=== PATIENT | female | born 1930 | race Asian ===

== ENCOUNTER 2018-07-22 22:26 | Inpatient (IN) | payer OTHER ==
--- NOTE | 2018-07-22 22:33 | PDOC ---
History of Present Illness - General History Source: Patient Exam Limitations: No Limitations - History of Present Illness Initial Comments: 07/22/18 23:08 Patient is an 87 year old female with a significant past medical history of asthma, anxiety, who presents to the ED with complaints of bright red blood that occured 30 mins prior to arrival. Patient reports being at home when she suddenly felt a fullness in her abdomen that she states felt like i had too much dairy, stating when she used the toilet she saw a large amount of bright red blood within the toilet. She reports experiencing a secondary episode shortly after, prompting her to come into the ED for further evaluation. Patient reports experiencing slight sob, and abdominal discomfort that she attributes to her anxiety over the situation. She reports bringing a sample of her bloody stool to the ED for evaluation. Denies chest pain, nausea, vomiting. Denies fevers, chills. Denies contact with sick individuals out of state travelling. Denies dizziness, lightheadedness. Denies dysuria, hematuria. Denies any other symptoms. Allergies: Dairy Social history: No smoking. No alcohol. No illicit drugs. Surgical history: Partial hysterectomy, Desmoid removal (Abdominal wall resection ~50 years ago). Bladder polyp removal. Colonoscopy (most recently several years ago). PMD: Dr. Hutton GI: Dr. Manuel Cardenas <Taiwo Canada - Last Filed: 07/22/18 23:13> <Ana Roblero - Last Filed: 07/23/18 03:22> - General Chief Complaint: Diarrhea Stated Complaint: BLOODY STOOL Time Seen by Provider: 07/22/18 22:32 Past History <Taiwo Canada - Last Filed: 07/22/18 23:13> <Ana Roblero - Last Filed: 07/23/18 03:22> - Past Medical History Allergies/Adverse Reactions: Allergies Allergy/AdvReac Type Severity Reaction Status Date / Time lactase [From Dairy Aid] Allergy Verified 07/22/18 22:28 No Known Drug Allergies Allergy Verified 07/22/18 22:28 Home Medications: Ambulatory Orders Albuterol Sulfate Inhaler - [Ventolin Hfa Inhaler -] 1 - 2 inh PO Q4H PRN Budesonide/Formeterol Fumarate [SYMBICORT 80/4.5mcg -] 1 inh PO BID PRN Rosuvastatin Calcium [Crestor] 0 mg PO DAILY 07/22/18 Review of Systems - Review of Systems Able to Perform ROS?: Yes Comments:: 07/22/18 23:08 GENERAL/CONSTITUTIONAL: No fever or chills. No weakness. HEAD, EYES, EARS, NOSE AND THROAT: No change in vision. No ear pain or discharge. No sore throat. CARDIOVASCULAR: No chest pain or shortness of breath. RESPIRATORY: No cough, wheezing, or hemoptysis. GASTROINTESTINAL: +Bloody diarrhea. No nausea, vomiting, or constipation. GENITOURINARY: No dysuria, frequency, or change in urination. MUSCULOSKELETAL: No joint or muscle swelling or pain. No neck or back pain. SKIN: No rash NEUROLOGIC: No headache, vertigo, loss of consciousness, or change in strength/ sensation. ENDOCRINE: No increased thirst. No abnormal weight change. HEMATOLOGIC/LYMPHATIC: No anemia, easy bleeding, or history of blood clots. ALLERGIC/IMMUNOLOGIC: No hives or skin allergy. <Taiwo Canada - Last Filed: 07/22/18 23:13> *Physical Exam - Physical Exam Comments: 07/22/18 23:09 GENERAL: Awake, alert, and fully oriented, in no acute distress HEAD: No signs of trauma EYES: PERRLA, EOMI, sclera anicteric, conjunctiva clear ENT: Auricles normal inspection, hearing grossly normal, nares patent, oropharynx clear without exudates. Moist mucosa NECK: Normal ROM, supple, no lymphadenopathy, JVD, or masses LUNGS: +Distant breath sounds. Breath sounds equal, clear to auscultation bilaterally. No wheezes, and no crackles HEART: Regular rate and rhythm, normal S1 and S2, no murmurs, rubs or gallops ABDOMEN: Soft, nontender, normoactive bowel sounds. No guarding, no rebound. No masses EXTREMITIES: Normal range of motion, no edema. No clubbing or cyanosis. No cords, erythema, or tenderness NEUROLOGICAL: Cranial nerves II through XII grossly intact. Normal speech, normal gait SKIN: Warm, Dry, normal turgor, no rashes or lesions noted. <Taiwo Canada - Last Filed: 12/19/18 23:13> ED Treatment Course - LABORATORY CBC & Chemistry Diagram: 07/22/18 23:00 07/22/18 23:00 <Taiwo Canada - Last Filed: 07/22/18 23:13> - LABORATORY CBC & Chemistry Diagram: 07/22/18 23:00 07/22/18 23:00 <Ana Roblero Ihsan - Last Filed: 07/23/18 03:22> Progress Note - Progress Note Progress Note: Documentation has been prepared under my direction and personally reviewed by me in its entirety. I attest that this documented accurately reflects all work, treatment, procedures and medical decision making performed by me. <OsbaldoAna Champagne - Last Filed: 07/23/18 03:22> Medical Decision Making - Medical Decision Making 07/23/18 00:09 This 87-year-old woman with a history of hypertension/COPD/desmoid tumor/ bladder polyps presents with a history of painless hematochezia. Patient states that she had mild "fullness" sensation in her abdomen approximately a half hour prior to presentation. She then had a large, liquid bright red bowel movement ("filled the bowl"). She subsequently had a smaller amount of bright red bowel movement. She felt slight nausea but no significant abdominal pain. Because she has a history of anxiety, she states that she felt "panicked" but no other associated symptoms of lightheadedness/shortness of breath other than her usual COPD related dyspnea/chest pain. Exam as noted; vital signs on presentation showed hypertension, likely secondary to anxiety. Subsequent measurements were much closer to normal. Since presenting here, the patient has had 2 smaller episodes of hematochezia. She has intermittent, very mild abdominal cramping but is otherwise comfortable without associated symptoms. Mild tachycardia persists Laboratory values notable for hemoglobin/hematocrit of 15.9/46.1. INR 0.93 Alkaline phosphatase is 106; troponin is not elevated. 12-lead echocardiogram is performed and interpreted by me: Sinus tachycardia at 108 bpm is present. Otherwise, intervals/axis and wave forms are essentially normal. No evidence that acute as T or T-wave abnormalities; no evidence of acute cardiac arrhythmia. Because this elderly patient has persistent hematochezia, urgent colonoscopy is warranted. Dr. Yonny Becker's patients are [facility]. Case discussed with AKOSUA Alexander The pt will be admitted to Dr Hall's service, inpatient 07/23/18 00:[address] Cardenas. The patient should be on clear liquid diet with bowel prep started tonight to facilitate colonoscopy tomorrow <Ana Roblero - Last Filed: 07/23/18 03:22> *DC/Admit/Observation/Transfer - Attestations Scribe Attestion: 07/22/18 23:09 Documentation prepared by Taiwo Canada, acting as medical records analyst for Ana Roblero MD. <Taiwo Canada - Last Filed: 07/22/18 23:13> - Discharge Dispostion Decision to Admit order: Yes <Ana Roblero - Last Filed: 07/23/18 03:22> Diagnosis at time of Disposition: Lower GI bleed - Discharge Dispostion Condition at time of disposition: Stable
[2018-07-22 23:14] LABS: BASO % 0.6 % (0-2.0); HEMATOCRIT 46.1 % (32.4-45.2); HEMOGLOBIN 14.9 GM/dl (10.7-15.3); LYMPH % 24.3 % (8-40); MCH 31.5 pg (25.7-33.7); MCHC 32.3 g/dl (32.0-36.0); MEAN CELL VOLUME 97.5 fl (80-96); MONO % 7.5 % (3.8-10.2); NEUT % 66.6 % (42.8-82.8); PLATELET COUNT 282 K/MM3 (134-434); RBC 4.72 M/mm3 (3.60-5.2); RDW 12.6 % (11.6-15.6); WHITE BLOOD COUNT 7.5 K/mm3 (4.0-10.8)
[2018-07-22 23:25] LABS: INR 0.93 (0.82-1.09); PROTHROMBIN TIME (PATIENT) 10.4 SEC (10.2-13.0)
[2018-07-22 23:41] LABS: ALBUMIN 4.7 g/dl (3.5-5.0); ALK PHOS 106 U/L (32-92); ANION GAP 8 MMOL/L (8-16); BILIRUBIN,TOTAL 0.7 mg/dl (0.2-1.0); BLOOD UREA NITROGEN 18 mg/dl (7-18); CALCIUM 9.8 mg/dl (8.4-10.2); CHLORIDE 99 mmol/L (98-107); CO2 28 mmol/L (22-28); CREATININE 0.8 mg/dl (0.6-1.3); GLUCOSE,RANDOM 124 mg/dl (74-106); POTASSIUM 4.4 mmol/L (3.5-5.1); SGOT/AST 31 U/L (10-42); SGPT/ALT 22 U/L (10-40); SODIUM 135 mmol/L (136-145); TOT PROT 7.5 g/dl (6.4-8.3)
[2018-07-23 01:26] LABS: URINE APPEARANCE CLEAR; URINE BILIRUBIN NEGATIVE (<2.0 mg/dL); URINE COLOR STRAW; URINE GLUCOSE (UA) NEGATIVE (NEGATIVE); URINE KETONE NEGATIVE (NEGATIVE); URINE LEUK ESTERASE NEGATIVE (NEGATIVE); URINE NITRITE NEGATIVE (NEGATIVE); URINE PROTEIN NEGATIVE (NEGATIVE); URINE UROBILINOGEN NEGATIVE mg/dL (0.2-1.0)
[2018-07-23 01:59] VITALS: BMI 17.6
[2018-07-23] MEDS ORDERED: HEMOQUE TEST 1 EACH EACH ONE ×2 (02:03→02:23)
[2018-07-23] MEDS ORDERED: PEG3350/SOD SULF,BICARB,CL/KCL 4,000 ML SOLN.RECON PO ONE (02:34)
[2018-07-23 07:51] LABS: HEMATOCRIT 42.9 % (32.4-45.2); HEMOGLOBIN 14.1 GM/dl (10.7-15.3); MCH 31.8 pg (25.7-33.7); MCHC 32.9 g/dl (32.0-36.0); MEAN CELL VOLUME 96.5 fl (80-96); MEAN PLT VOLUME 8.5 fl (7.5-11.1); PLATELET COUNT 244 K/MM3 (134-434); RBC 4.45 M/mm3 (3.60-5.2); RDW 12.3 % (11.6-15.6); WHITE BLOOD COUNT 6.1 K/mm3 (4.0-10.8)
[2018-07-23 07:53] LABS: ANION GAP 8 MMOL/L (8-16); BLOOD UREA NITROGEN 14 mg/dl (7-18); CALCIUM 9.5 mg/dl (8.4-10.2); CHLORIDE 99 mmol/L (98-107); CO2 28 mmol/L (22-28); CREATININE 0.8 mg/dl (0.6-1.3); GLUCOSE,RANDOM 108 mg/dl (74-106); POTASSIUM 3.7 mmol/L (3.5-5.1); SODIUM 135 mmol/L (136-145)
[2018-07-23] MEDS ORDERED: SODIUM CHLORIDE 1,000 ML IV SCH (08:30)
[2018-07-23] MEDS ORDERED: PANTOPRAZOLE 40 MG TABLET (FP) PO SCH (10:00)
[2018-07-23] MEDS ORDERED: SODIUM CHLORIDE 1,000 ML IV STA (10:36)
[2018-07-23] MEDS: BUDESONIDE/FORMETEROL FUMARATE 80/4.5 mcg INHALER IH SCH ×2 (10:49→23:49)
[2018-07-23] MEDS ORDERED: PANTOPRAZOLE SODIUM 80 MG in SODIUM CHLORIDE 100 ML IVPB SCH (11:00)
[2018-07-23 11:09] LABS: HEMATOCRIT 38.5 % (32.4-45.2); MCH 32.7 pg (25.7-33.7); MCHC 33.9 g/dl (32.0-36.0); MEAN CELL VOLUME 96.5 fl (80-96); MEAN PLT VOLUME 7.7 fl (7.5-11.1); PLATELET COUNT 231 K/MM3 (134-434); RBC 3.98 M/mm3 (3.60-5.2); RDW 12.3 % (11.6-15.6); WHITE BLOOD COUNT 5.5 K/mm3 (4.0-10.8)
--- NOTE | 2018-07-23 11:54 | HP ---
CHIEF COMPLAINT: Lower GI bleed PCP: Dr. Villanueva HISTORY OF PRESENT ILLNESS: 87 year-old female with a PMH signifiant for COPD and anxiety. Presented to the ED last evening with complaint of bleeding per rectum that occured 30 mins prior to arrival. Patient reported being at home when she suddenly felt a fullness in her abdomen. She used the toilet and saw a large amount of red blood. Within minutes she had a second episode which prompted her to come to the ED. Overnight on floor had two more episodes. Since 10am, three episodes. Patient was given Go-Litely prep overnight. Last colonoscopy was 10 years ago, polyps removed. Denies chest pain, nausea, vomiting. Denies fevers, chills. Denies dizziness, lightheadedness, fatigue. Surgical history: Partial hysterectomy, Desmoid removal (Abdominal wall resection ~50 years ago). Bladder polyp removal. Colonoscopy (most recently several years ago). 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 Smoking: no Alcohol: no Drugs: no Family History: father colon cancer age 67 Allergies lactase [From Dairy Aid] Allergy (Verified 07/22/18 22:28) No Known Drug Allergies Allergy (Verified 07/22/18 22:28) HOME MEDICATIONS: Home Medications Medication Instructions Recorded Albuterol Sulfate Inhaler - 1 - 2 inh PO Q4H PRN 07/22/18 [Ventolin Hfa Inhaler -] Budesonide/Formeterol Fumarate 1 inh PO BID PRN 07/22/18 [SYMBICORT 80/4.5mcg -] Rosuvastatin Calcium [Crestor] 0 mg PO DAILY 07/22/18 REVIEW OF SYSTEMS CONSTITUTIONAL: Absent: fever, chills, diaphoresis, generalized weakness, malaise, loss of appetite, weight change HEENT: Absent: rhinorrhea, nasal congestion, throat pain, throat swelling, difficulty swallowing, mouth swelling, ear pain, eye pain, visual changes CARDIOVASCULAR: Absent: chest pain, syncope, palpitations, irregular heart rate, lightheadedness , peripheral edema RESPIRATORY: Absent: cough, shortness of breath, dyspnea with exertion, orthopnea, wheezing, stridor, hemoptysis GASTROINTESTINAL: Absent: abdominal pain, abdominal distension, nausea, vomiting, diarrhea, constipation, melena, hematochezia GENITOURINARY: +blood per rectum Absent: dysuria, frequency, urgency, hesitancy, hematuria, flank pain, genital pain MUSCULOSKELETAL: Absent: myalgia, arthralgia, joint swelling, back pain, neck pain SKIN: Absent: rash, itching, pallor HEMATOLOGIC/IMMUNOLOGIC: Absent: easy bleeding, easy bruising, lymphadenopathy, frequent infections ENDOCRINE: Absent: unexplained weight gain, unexplained weight loss, heat intolerance, cold intolerance NEUROLOGIC: Absent: headache, focal weakness or paresthesias, dizziness, unsteady gait, seizure, mental status changes, bladder or bowel incontinence PSYCHIATRIC: Absent: anxiety, depression, suicidal or homicidal ideation, hallucinations. PHYSICAL EXAMINATION Vital Signs - 24 hr 07/22/18 07/22/18 07/23/18 23:34 23:45 01:01 Temperature 97.4 F L 98.1 F Pulse Rate 127 H 113 H Pulse Rate [ 111 H Left] Respiratory 20 18 20 Rate Blood Pressure 199/125 H 168/100 Blood Pressure 147/99 [Right Arm] O2 Sat by Pulse 95 98 98 Oximetry (%) GENERAL: Awake, alert, and fully oriented, in no acute distress. LUNGS: Breath sounds equal, clear to auscultation bilaterally. No wheezes, and no crackles. No accessory muscle use. HEART: Regular rate and rhythm, S1 and S2 without murmur, rub or gallop. ABDOMEN: Soft, nontender, not distended, +bowel sounds MUSCULOSKELETAL: Normal range of motion at all joints. No bony deformities or tenderness. No CVA tenderness. UPPER EXTREMITIES: 2+ pulses, warm, well-perfused. No cyanosis. No clubbing. No peripheral edema. LOWER EXTREMITIES: 2+ pulses, warm, well-perfused. No calf tenderness. No peripheral edema. NEUROLOGICAL: Cranial nerves II-XII intact. Normal speech. Laboratory Results - last 24 hr 07/22/18 07/22/18 07/22/18 23:00 23:00 23:00 WBC 7.5 RBC 4.72 Hgb 14.9 Hct 46.1 H MCV 97.5 H MCH 31.5 MCHC 32.3 RDW 12.6 Plt Count 282 MPV 8.0 Absolute Neuts (auto) 5.0 Neutrophils % 66.6 Lymphocytes % 24.3 Monocytes % 7.5 Eosinophils % 1.0 Basophils % 0.6 PT with INR 10.4 INR 0.93 L Sodium 135 L Potassium 4.4 Chloride 99 Carbon Dioxide 28 Anion Gap 8 BUN 18 Creatinine 0.8 Creat Clearance w eGFR > 60 Random Glucose 124 H Calcium 9.8 Total Bilirubin 0.7 AST 31 ALT 22 Alkaline Phosphatase 106 H Creatine Kinase 213 H Creatine Kinase Index 1.5 CK-MB (CK-2) 3.4 Troponin I Total Protein 7.5 Albumin 4.7 Urine Color Urine Appearance Urine pH Ur Specific [place] Urine Protein Urine Glucose (UA) Urine Ketones Urine Blood Urine Nitrite Urine Bilirubin Urine Urobilinogen Ur Leukocyte Esterase Blood Type Antibody Screen Crossmatch 07/22/18 07/22/18 07/23/18 23:00 23:05 00:05 WBC RBC Hgb Hct MCV MCH MCHC RDW Plt Count MPV Absolute Neuts (auto) Neutrophils % Lymphocytes % Monocytes % Eosinophils % Basophils % PT with INR INR Sodium Potassium Chloride Carbon Dioxide Anion Gap BUN Creatinine Creat Clearance w eGFR Random Glucose Calcium Total Bilirubin AST ALT Alkaline Phosphatase Creatine Kinase Creatine Kinase Index CK-MB (CK-2) Troponin I < 0.03 Total Protein Albumin Urine Color Straw Urine Appearance Clear Urine pH 7.0 Ur Specific [place] 1.005 L Urine Protein Negative Urine Glucose (UA) Negative Urine Ketones Negative Urine Blood Negative Urine Nitrite Negative Urine Bilirubin Negative Urine Urobilinogen Negative Ur Leukocyte Esterase Negative Blood Type B POSITIVE Antibody Screen Negative Crossmatch See Detail 07/23/18 07/23/18 07:00 07:00 WBC 6.1 RBC 4.45 Hgb 14.1 Hct 42.9 MCV 96.5 H MCH 31.8 MCHC 32.9 RDW 12.3 Plt Count 244 MPV 8.5 Absolute Neuts (auto) Neutrophils % Lymphocytes % Monocytes % Eosinophils % Basophils % PT with INR INR Sodium 135 L Potassium 3.7 Chloride 99 Carbon Dioxide 28 Anion Gap 8 BUN 14 Creatinine 0.8 Creat Clearance w eGFR > 60 Random Glucose 108 H Calcium 9.5 Total Bilirubin AST ALT Alkaline Phosphatase Creatine Kinase Creatine Kinase Index CK-MB (CK-2) Troponin I Total Protein Albumin Urine Color Urine Appearance Urine pH Ur Specific [place] Urine Protein Urine Glucose (UA) Urine Ketones Urine Blood Urine Nitrite Urine Bilirubin Urine Urobilinogen Ur Leukocyte Esterase Blood Type Antibody Screen Crossmatch ASSESSMENT/PLAN 87 year-old female with a PMH significant for COPD and anxiety, admitted for lower GI bleed. Lower GI bleeding --tachycardic, BP stable --IV fluids --2 peripheral line access --2U PRBCs ordered --protonix drip --cbc q4h --NPO Dispo: transfer to ICU. Visit type - Emergency Visit Emergency Visit: Yes ED Registration Date: 07/23/18 Care time: The patient presented to the Emergency Department on the above date and was hospitalized for further evaluation of their emergent condition. - New Patient This patient is new to me today: Yes Date on this admission: 07/23/18 - Critical Care Critical Care patient: Yes Total Critical Care Time (in minutes): 60 Critical Care Statement: The care of this patient involved high complexity decision making to prevent further life threatening deterioration of the patient 's condition and/or to evaluate & treat vital organ system(s) failure or risk of failure.
--- NOTE | 2018-07-23 12:05 | EKG ---
Test Reason : Blood Pressure : / mmHG Vent. Rate : 108 BPM Atrial Rate : 108 BPM P-R Int : 140 ms QRS Dur : 078 ms QT Int : 338 ms P-R-T Axes : 084 070 058 degrees QTc Int : 452 ms SINUS TACHYCARDIA POSSIBLE LEFT ATRIAL ENLARGEMENT BORDERLINE ECG WHEN COMPARED WITH ECG OF 06-JUL-2001 17:50, NO SIGNIFICANT CHANGE WAS FOUND Confirmed by SALENA CORMIER MD ([id number]) on 07/23/2018 12:05:24 PM Referred By: MD CACERES Confirmed By:SALENA CORMIER MD
--- NOTE | 2018-07-23 15:03 | CON.GI ---
Consult Consult Specialty:: GI - History of Present Illness History of Present Illness: 87 y/o F was asked to be seen because of rectal bleeding. He was transfereed from [place]. Yesterday she started taking 3/4 of the golytely but still has passing blood mixed with stool. Patient transferred for further evaluation management. At this time she denies nausea,no vomiting, melena, chest pain and LOC. - Past Medical History ...: No - Alcohol/Substance Use Hx Alcohol Use: No - Smoking History Smoking history: Former smoker Have you smoked in the past 12 months: No If you are a former smoker, when did you quit?: 50 Home Medications - Allergies Allergies/Adverse Reactions: Allergies Allergy/AdvReac Type Severity Reaction Status Date / Time lactase [From Dairy Aid] Allergy Verified 07/22/18 22:28 No Known Drug Allergies Allergy Verified 07/22/18 22:28 - Home Medications Home Medications: Ambulatory Orders Albuterol Sulfate Inhaler - [Ventolin Hfa Inhaler -] 1 - 2 inh PO Q4H PRN Budesonide/Formeterol Fumarate [SYMBICORT 80/4.5mcg -] 1 inh PO BID PRN Rosuvastatin Calcium [Crestor] 0 mg PO DAILY 07/22/18 Review of Systems - Review of Systems Constitutional: denies: No Symptoms, Chills, Diaphoresis, Fever, Lethargy, Loss of Appetite, Malaise, Night Sweats, Unintentional Wgt. Loss, Weakness, Other Eyes: denies: No Symptoms, Blind Spots, Blurred Vision, Double Vision, Eye Pain , Floaters, Photophobia, Recent Change in Vision, Other HENT: denies: No Symptoms, Difficult Swallowing, Ear Discharge, Ear Pain, Epistaxis, Gingival Bleeding, Hearing Loss, Mouth Swelling, Nasal Congestion, Ocular Prosthesis, Throat Pain, Toothache, Ringing in Ears, Other Neck: denies: No Symptoms, Decreased ROM, Lumps, Pain on Movement, Stiffness, Swollen Glands, Tenderness, Other Cardiovascular: denies: No Symptoms, Chest Pain, Edema, Palpitations, Shortness of Breath, Other Respiratory: denies: No Symptoms, Cough, Exercise Intolerance, Hemoptysis, Orthopnea, PND, Snoring, SOB, SOB on Exertion, Wheezing, Other Gastrointestinal: reports: Rectal Bleeding. denies: No Symptoms, Abdominal Pain , Bloating, Indigestion, Vomiting, Vomiting Blood Physical Exam-GI Vital Signs: Vital Signs Temperature 982 F H 07/23/18 14:00 Pulse Rate 92 H 07/23/18 14:00 Respiratory Rate 18 07/23/18 14:00 Blood Pressure 127/81 07/23/18 14:00 O2 Sat by Pulse Oximetry (%) 96 07/23/18 11:00 Constitutional: Yes: Well Nourished Eyes: Yes: Conjunctiva Clear HENT: Yes: Atraumatic Neck: Yes: Supple Cardiovascular: Yes: Regular Rate and Rhythm Respiratory: Yes: CTA Bilaterally ...Palpate: Yes: Soft. No: Firm/Rigid, Guarding, Hepatomegaly, Mass, Pulsatile Mass, Splenomegaly, Tenderness Labs: CBC, BMP 07/23/18 11:05 07/23/18 07:00 INR, PTT INR 0.93 (0.82-1.09) L 07/22/18 23:00 Hepatic Panel Total Bilirubin 0.7 mg/dl (0.2-1.0) 07/22/18 23:00 AST 31 U/L (10-42) 07/22/18 23:00 ALT 22 U/L (10-40) 07/22/18 23:00 Alkaline Phosphatase 106 U/L (32-92) H 07/22/18 23:00 Albumin 4.7 g/dl (3.5-5.0) 07/22/18 23:00 Home Medications Medication Instructions Recorded Albuterol Sulfate Inhaler - 1 - 2 inh PO Q4H PRN 07/22/18 [Ventolin Hfa Inhaler -] Budesonide/Formeterol Fumarate 1 inh PO BID PRN 07/22/18 [SYMBICORT 80/4.5mcg -] Rosuvastatin Calcium [Crestor] 0 mg PO DAILY 07/22/18 Current Medications Generic Name Dose Route Start Last Admin Trade Name Freq PRN Reason Stop Dose Admin Budesonide/Formoterol Fumarate 1 puff 07/23/18 10:00 07/23/18 10:49 Symbicort 80/4.5mcg - IH 1 puff BID MARISSA Administration Chlorhexidine Gluconate 1 applic 07/23/18 22:00 Hibiclens For Decolonization - TP HS MARISSA Sodium Chloride 1,000 mls @ 125 mls/hr 07/23/18 08:30 07/23/18 08:30 Normal Saline - IV 125 mls/hr ASDIR MARISSA Administration Pantoprazole Sodium 80 mg/ 100 mls @ 10 mls/hr 07/23/18 11:00 07/23/18 11:18 Sodium Chloride IVPB 10 mls/hr Q10H MARISSA Administration 8 MG/HR Mupirocin 1 applic 07/23/18 22:00 Bactroban Ointment (For Decolonization) - NS 07/28/18 21:59 BID MARISSA Rosuvastatin Calcium 5 mg 07/23/18 22:00 Crestor - PO HS MARISSA Problem List - Problems (1) Lower GI bleed Assessment/Plan: r/o diverticular bleeding R>for colonoscopy in am trend CBC okay to discontinue IV Protonix Code(s): K92.2 - GASTROINTESTINAL HEMORRHAGE, UNSPECIFIED
--- NOTE | 2018-07-23 15:24 | CONSULT ---
Consultation: ICU Consult Note CONSULT REQUEST: We have been asked to medically evaluate this patient for suspected lower GI bleed (BRBPR). HISTORY OF PRESENT ILLNESS: The patient is an 87F w/ a history of COPD, HLD, distant bladder ca s/p BCG washout and partial HYS who presents for evaluation of multiple episodes of BRBPR since 199. The patient reports that she was attempting to have a BM when she passed a 'large amount of pure blood'. She is unable to quantify the amount of blood. She states she has had multiple bloody BMs since that time. She endorses generalized weakness/fatigue. She denies ever having had this happen before. States she has had multiple colonoscopies in the past, has had several polyps removed, but to her knowledge they have never been malignant and otherwise have been normal. Denies LITTLE, vision changes, chest pain, SOB, abdominal pain, N/V/C/D, dysuria, hematuria. Denies AC Denies hx of CO or stroke She has also been taking GoLytely throughout the night/day in preparation for a colonoscopy. She stated she consumed approximately 1/2 of the total prep. PSH: Partial HYS, Desmoid removal, malignant bladder polyp removal Allergies: NKDA SH: Distant hx of tobacco use REVIEW OF SYSTEMS: GENERAL/CONSTITUTIONAL: No fever or chills HEAD, EYES, EARS, NOSE AND THROAT: +b/l cataracts. No ear pain or discharge. No sore throat CARDIOVASCULAR: No chest pain or shortness of breath RESPIRATORY: Denies cough, hemoptysis GASTROINTESTINAL: per HPI GENITOURINARY: No dysuria, frequency, or change in urination MUSCULOSKELETAL: No joint or muscle swelling or pain. No neck or back pain SKIN: No rash NEUROLOGIC: No headache, vertigo, loss of consciousness, or change in strength/ sensation ENDOCRINE: No increased thirst. No abnormal weight change HEMATOLOGIC/LYMPHATIC: No anemia, easy bleeding, or history of blood clots ALLERGIC/IMMUNOLOGIC: No hives or skin allergy PHYSICAL EXAMINATION Vital Signs Temperature 98.2 F 07/23/18 16:00 Pulse Rate 92 H 07/23/18 14:00 Respiratory Rate 18 07/23/18 16:00 Blood Pressure 128/82 07/23/18 16:00 O2 Sat by Pulse Oximetry (%) 96 07/23/18 11:00 GENERAL: Awake, alert, and fully oriented, in no acute distress HEAD: No signs of trauma, normocephalic, atraumatic EYES: PERRLA, EOMI, sclera anicteric, conjunctiva clear ENT: Hearing grossly normal, nares patent, oropharynx clear without exudates. Moist mucosa NECK: Normal ROM, supple LUNGS: No distress, speaks full sentences, clear to auscultation bilaterally HEART: Tachycardic rate with regular rhythm, normal S1 and S2, no murmurs appreciated, peripheral pulses normal and equal bilaterally ABDOMEN: Soft, nontender, non-distended, +bowel sounds. No guarding, no rebound RECTAL: Normal tone. No hemorrhoids or fissures. +BRB on glove. Soft stool in rectal vault EXTREMITIES : Normal inspection, Normal range of motion, no edema NEUROLOGICAL: Cranial nerves II through XII grossly intact. Normal speech, no focal sensorimotor deficits SKIN: Small stage II pressure wound on sacrum measuring 0.5cm x 0.3cm. Otherwise warm/dry CBC, BMP 07/23/18 11:05 07/23/18 07:00 Active Medications Generic Name Dose Route Start Last Admin Trade Name Freq PRN Reason Stop Dose Admin Budesonide/Formoterol Fumarate 1 puff 07/23/18 10:00 07/23/18 10:49 Symbicort 80/4.5mcg - IH 1 puff BID MARISSA Administration Chlorhexidine Gluconate 1 applic 07/23/18 22:00 Hibiclens For Decolonization - TP HS MARISSA Sodium Chloride 1,000 mls @ 125 mls/hr 07/23/18 08:30 07/23/18 08:30 Normal Saline - IV 125 mls/hr ASDIR MARISSA Administration Pantoprazole Sodium 80 mg/ 100 mls @ 10 mls/hr 07/23/18 11:00 07/23/18 11:18 Sodium Chloride IVPB 10 mls/hr Q10H MARISSA Administration 8 MG/HR Mupirocin 1 applic 07/23/18 22:00 Bactroban Ointment (For Decolonization) - NS 07/28/18 21:59 BID MARISSA Rosuvastatin Calcium 5 mg 07/23/18 22:00 Crestor - PO HS MARISSA ASSESSMENT/PLAN: The patient is an 87F w/ a history of COPD, distant bladder ca hx, and HLD who presents for evaluation of 1d of multiple episodes of BRBPR and associated generalized weakness. Neuro Denies pain HEENT Cataracts -Vision grossly intact -Surgery scheduled for October CV HLD -Home Rosuvastatin restarted PULM COPD -Will continue home meds GI Bright Red Blood Per Rectum -Hgb 13 -FOBT sent -Pt HD stable at this time -Dr. Yang consulted --Per pt, she consumed approximately 1/2 of GoLytely prep for colonoscopy tomorrow --Protonix gtt D/C'ed Nutrition -CLD Hx of bladder cancer No current complaints UA w/o blood HEME Hgb 14.1 -> 13, will CTM -s/p 1u pRBC -pt w/o dizziness, palpitations, or confusion -no need for further transfusion at this time, will CTM. Serial CBCs ordered. ID Afebrile, no leukocytosis CTM ENDO Denies hx of DM or thyroid pathology MSK Pressure wound on coccyx present on arrival, 0.5cm x 0.3cm -Pressure dressing ordered. To be kept dry. Change Q7day or if soiled -Of note, pt reports that she has had it for some time and 'think[s] of it as normal'. LTD PIVx3 Dispo: We will continue to follow the patient Visit type - Emergency Visit Emergency Visit: Yes ED Registration Date: 07/23/18 Care time: The patient presented to the Emergency Department on the above date and was hospitalized for further evaluation of their emergent condition. - New Patient This patient is new to me today: Yes Date on this admission: 07/23/18 - Critical Care Critical Care patient: Yes Total Critical Care Time (in minutes): 35 Critical Care Statement: The care of this patient involved high complexity decision making to prevent further life threatening deterioration of the patient 's condition and/or to evaluate & treat vital organ system(s) failure or risk of failure.
--- NOTE | 2018-07-23 15:38 | PN ---
Progress Note, Physician Chief Complaint: 87 year old female with pmh of asthma ,bladder cancer anxiety presented from [facility] ED to ICU to lower GI bleed. pt reports 4 episode of bright blood with stool. she does not know the amount and it s not mixed with the stool. pt is using [place] herbal over the counter. but denies using any ASA, ibuprofen Advil or any NSAIDS. pt recieved colon prep partially at [facility] and GI Dr Yang was consulted. denies any fever, chills, nausea, vomiting D/C/denies any chest pain or shortness of breath. no light headedness, no palpitation. PMH: Bladder cancer treated with BCG wash, asthma , cataract PSHx: hysterectomy , colonoscopy with polyp removal Allergies: NKDA Social: smokes socially as teenage, denies drinking, denies any illegal drugs. Vital Signs - 24 hr 07/22/18 07/22/18 07/23/18 23:34 23:45 01:01 Temperature 97.4 F L 98.1 F Pulse Rate 127 H 113 H Pulse Rate [ 111 H Left] Respiratory 20 18 20 Rate Blood Pressure 199/125 H 168/100 Blood Pressure 147/99 [Right Arm] O2 Sat by Pulse 95 98 98 Oximetry (%) 07/23/18 07/23/18 07/23/18 01:34 02:14 05:55 Temperature 97.6 F Pulse Rate 110 H Pulse Rate [ 107 H Left] Respiratory 18 18 18 Rate Blood Pressure 149/92 Blood Pressure 138/101 H [Right Arm] O2 Sat by Pulse 98 98 97 Oximetry (%) 07/23/18 07/23/18 07/23/18 05:58 07:55 08:37 Temperature 97.6 F Pulse Rate 97 H Pulse Rate [ Left] Respiratory 18 18 18 Rate Blood Pressure 122/87 Blood Pressure [Right Arm] O2 Sat by Pulse 97 96 Oximetry (%) 07/23/18 07/23/18 07/23/18 10:44 11:00 12:00 Temperature 98 F 98.7 F Pulse Rate 112 H 103 H Pulse Rate [ Left] Respiratory 18 17 Rate Blood Pressure 159/91 118/76 Blood Pressure [Right Arm] O2 Sat by Pulse 96 Oximetry (%) 07/23/18 07/23/18 13:00 14:00 Temperature 982 F H Pulse Rate 101 H 92 H Pulse Rate [ Left] Respiratory 18 Rate Blood Pressure 134/86 127/81 Blood Pressure [Right Arm] O2 Sat by Pulse Oximetry (%) PE General: laying down in bed in AND , AAOx3 Head : NC/AT HEENT: DAX, EOMI, icteric sclera Heart: tachycardic, normal S1, S2, no MRG lungs: CTA B/L Abdomen: soft, ND, NT, hyperactive bowel sounds. no rebound or guarding neuro: no focal deficit, AAOx3 skin: warm dry CBC, BMP 07/23/18 11:05 07/23/18 07:00 A/P 87 year old female presented with 4 episode of lower GI bleed , S/P one unit of blood in [facility] ED. recieved partial prep will admit to icu for monitoring # GI bleed likely lower * cardiac, NURSE CASE MANAGER monitor * ICU monitor * Vitals Q 2 hr * 2 Large Iv pores, * IV fluids * monitor H/H Q 4 hr , transfuse if below 7 * coagulation studies , PT, PTT, INR * Lfts , bilir, total and direct * GI consult : possible colonoscopy tomorrow after complete the prep, * NPO except meds # Asthma # HLD resume home emds. # FEN * F: NS @ 100 CC/hr * E: monitor lytes * N: NPO , except meds #proph * DVTS: SCDS * GI: protonix # dispo: * monitor in ICU - Current Medication List Current Medications: Active Medications Budesonide/Formoterol Fumarate (Symbicort 80/4.5mcg -) 1 puff IH BID MARISSA Last Admin: 07/23/18 10:49 Dose: 1 puff Chlorhexidine Gluconate (Hibiclens For Decolonization -) 1 applic TP HS MARISSA Sodium Chloride (Normal Saline -) 1,000 mls @ 125 mls/hr IV ASDIR MARISSA Last Admin: 07/23/18 08:30 Dose: 125 mls/hr Pantoprazole Sodium 80 mg/ (Sodium Chloride) 100 mls @ 10 mls/hr IVPB Q10H MARISSA Last Admin: 07/23/18 11:18 Dose: 10 mls/hr Mupirocin (Bactroban Ointment (For Decolonization) -) 1 applic NS BID MARISSA Stop: 12/25/18 21:59 Rosuvastatin Calcium (Crestor -) 5 mg PO HS MARISSA - Objective Vital Signs: Vital Signs Temperature 982 F H 07/23/18 14:00 Pulse Rate 92 H 07/23/18 14:00 Respiratory Rate 18 07/23/18 14:00 Blood Pressure 127/81 07/23/18 14:00 O2 Sat by Pulse Oximetry (%) 96 07/23/18 11:00 Labs: CBC, BMP 07/23/18 11:05 07/23/18 07:00 INR, PTT INR 0.93 (0.82-1.09) L 07/22/18 23:00
[2018-07-23 17:12] LABS: HEMATOCRIT 40.1 % (32.4-45.2); HEMOGLOBIN 13.9 GM/dL (10.7-15.3); MCH 31.7 pg (25.7-33.7); MCHC 34.7 g/dl (32.0-36.0); MEAN CELL VOLUME 91.4 fl (80-96); MEAN PLT VOLUME 8.2 fl (7.5-11.1); PLATELET COUNT 202 K/MM3 (134-434); RBC 4.39 M/mm3 (3.60-5.2); WHITE BLOOD COUNT 4.5 K/mm3 (4.0-10.0)
[2018-07-23] MEDS: SODIUM CHLORIDE 1,000 ML IV SCH (17:18)
[2018-07-23] MEDS ORDERED: PT OWN MED DRAWER 7, Y5N ONE (21:56)
[2018-07-23] MEDS ORDERED: CHLORHEXIDINE GLUCONATE 4% CLEANSER FOR DECOLONIZATION TP SCH (22:00)
[2018-07-23] MEDS ORDERED: MUPIROCIN 2% TOPICAL OINTMENT FOR DECOLONIZATION NS SCH (22:00)
[2018-07-23] MEDS: ROSUVASTATIN CA 5 MG TABLET (FP) PO SCH (23:48)
[2018-07-23] MEDS: CHLORHEXIDINE GLUCONATE 4% CLEANSER FOR DECOLONIZATION TP SCH (23:48)
[2018-07-23] MEDS: MUPIROCIN 2% TOPICAL OINTMENT FOR DECOLONIZATION NS SCH (23:48)
[2018-07-23] MEDS: PANTOPRAZOLE SODIUM 40 MG VIAL IVPUSH SCH (23:49)
[2018-07-24 00:06] LABS: HEMATOCRIT 39.7 % (32.4-45.2); HEMOGLOBIN 13.9 GM/dL (10.7-15.3); MCH 32.1 pg (25.7-33.7); MEAN CELL VOLUME 91.8 fl (80-96); MEAN PLT VOLUME 8.9 fl (7.5-11.1); PLATELET COUNT 193 K/MM3 (134-434); RBC 4.32 M/mm3 (3.60-5.2); RDW 18.5 % (11.6-15.6); WHITE BLOOD COUNT 4.8 K/mm3 (4.0-10.0)
[2018-07-24 06:18] LABS: BASO % 0.7 % (0-2.0); EOS % 1.7 % (0-4.5); HEMOGLOBIN 13.2 GM/dL (10.7-15.3); LYMPH % 28.4 % (8-40); MCH 30.1 pg (25.7-33.7); MCHC 32.3 g/dl (32.0-36.0); MEAN CELL VOLUME 93.1 fl (80-96); MEAN PLT VOLUME 8.5 fl (7.5-11.1); MONO % 10.2 % (3.8-10.2); PLATELET COUNT 173 K/MM3 (134-434); RBC 4.41 M/mm3 (3.60-5.2); RDW 18.9 % (11.6-15.6); WHITE BLOOD COUNT 4.6 K/mm3 (4.0-10.0)
--- NOTE | 2018-07-24 07:00 | PN ---
Physical Exam: SUBJECTIVE: Patient seen and examined. Denies pain. Reports blood content in stool has decreased. Denies N/V, LITTLE, dizziness, blurry vision, chest pain, or SOB OBJECTIVE: Vital Signs Period Temp Pulse Resp BP Sys/Vila Pulse Ox Last 24 Hr 97.6 F-982 F 87-112 16-20 110-159/74-92 92-96 GENERAL: Awake, alert, and fully oriented, in no acute distress HEAD: No signs of trauma, normocephalic, atraumatic EYES: PERRLA, EOMI, sclera anicteric, conjunctiva clear ENT: Hearing grossly normal, nares patent, oropharynx clear without exudates. Moist mucosa NECK: Normal ROM, supple LUNGS: No distress, speaks full sentences, clear to auscultation bilaterally HEART: Tachycardic rate with regular rhythm, normal S1 and S2, no murmurs appreciated, peripheral pulses normal and equal bilaterally ABDOMEN: Soft, nontender, non-distended, +bowel sounds. No guarding, no rebound EXTREMITIES : Normal inspection, Normal range of motion, no edema NEUROLOGICAL: Cranial nerves II through XII grossly intact. Normal speech, no focal sensorimotor deficits SKIN: Small stage II pressure wound on sacrum measuring 0.5cm x 0.3cm. Otherwise warm/dry Active Medications Generic Name Dose Route Start Last Admin Trade Name Freq PRN Reason Stop Dose Admin Budesonide/Formoterol Fumarate 1 puff 07/23/18 10:00 07/23/18 23:49 Symbicort 80/4.5mcg - IH 1 puff BID MARISSA Administration Chlorhexidine Gluconate 1 applic 07/23/18 22:00 07/23/18 23:48 Hibiclens For Decolonization - TP 1 applic HS MARISSA Administration Sodium Chloride 1,000 mls @ 75 mls/hr 07/23/18 16:45 07/23/18 17:18 Normal Saline - IV 75 mls/hr ASDIR MARISSA Administration Mupirocin 1 applic 07/23/18 22:00 07/23/18 23:48 Bactroban Ointment (For Decolonization) - NS 07/28/18 21:59 1 applic BID MARISSA Administration Pantoprazole Sodium 40 mg 07/23/18 22:00 07/23/18 23:49 Protonix Iv IVPUSH 40 mg BID MARISSA Administration Rosuvastatin Calcium 5 mg 07/23/18 22:00 07/23/18 23:48 Crestor - PO 5 mg HS MARISSA Administration ASSESSMENT/PLAN: The patient is an 87F w/ a history of COPD, distant bladder ca hx, and HLD who presents for evaluation of 1d of multiple episodes of BRBPR and associated generalized weakness. Neuro Denies pain HEENT Cataracts -Vision grossly intact -Surgery scheduled for October CV HLD -Home Rosuvastatin restarted PULM COPD -Will continue home meds GI Bright Red Blood Per Rectum -Hgb 13 -FOBT + -Pt HD stable at this time -Dr. Yang consulted --Plan for colonoscopy today --Protonix D/C'ed Nutrition -CLD Hx of bladder cancer No current complaints UA w/o blood HEME Hgb 14.1 -> 13, will CTM -s/p 1u pRBC -pt w/o dizziness, palpitations, or confusion -no need for further transfusion at this time, will CTM. Serial CBCs ordered. DVT ppx -Mechanical ID Afebrile, no leukocytosis CTM ENDO Denies hx of DM or thyroid pathology MSK Pressure wound on coccyx present on arrival, 0.5cm x 0.3cm -Pressure dressing ordered. To be kept dry. Change Q7day or if soiled -Of note, pt reports that she has had it for some time and 'think[s] of it as normal'. LTD PIVx3 Dispo:Patient scheduled for colonoscopy today. If patient remains stable s/p procedure, plan to transfer to floor. Visit type - Emergency Visit Emergency Visit: Yes ED Registration Date: 07/23/18 Care time: The patient presented to the Emergency Department on the above date and was hospitalized for further evaluation of their emergent condition. - New Patient This patient is new to me today: No - Critical Care Critical Care patient: Yes Total Critical Care Time (in minutes): 35 Critical Care Statement: The care of this patient involved high complexity decision making to prevent further life threatening deterioration of the patient 's condition and/or to evaluate & treat vital organ system(s) failure or risk of failure.
[2018-07-24] MEDS ORDERED: MAGNESIUM CITRATE 300 ML BOTTLE PO ONE (07:30)
[2018-07-24 07:59] LABS: ALBUMIN 3.2 g/dl (3.4-5.0); ALK PHOS 80 U/L (45-117); ANION GAP 11 MMOL/L (8-16); BLOOD UREA NITROGEN 10 mg/dL (7-18); CALCIUM 8.3 mg/dL (8.5-10.1); CHLORIDE 108 mmol/L (98-107); CO2 24 mmol/L (21-32); CREATININE 0.7 mg/dL (0.55-1.3); GLUCOSE,RANDOM 65 mg/dL (74-106); MAGNESIUM 2.2 mg/dL (1.8-2.4); PHOSPHOROUS 3.9 mg/dL (2.5-4.9); POTASSIUM 3.8 mmol/L (3.5-5.1); SGOT/AST 22 U/L (15-37); SGPT/ALT 20 U/L (13-61); SODIUM 142 mmol/L (136-145); TOT PROT 5.6 g/dl (6.4-8.2)
[2018-07-24] MEDS: PANTOPRAZOLE SODIUM 40 MG VIAL IVPUSH SCH (10:07)
[2018-07-24] MEDS: MUPIROCIN 2% TOPICAL OINTMENT FOR DECOLONIZATION NS SCH ×2 (10:08→23:07)
[2018-07-24] MEDS ORDERED: PT OWN MED DRAWER 7, Y5N ONE ×2 (10:08→22:04)
[2018-07-24] MEDS: BUDESONIDE/FORMETEROL FUMARATE 80/4.5 mcg INHALER IH SCH ×2 (10:12→23:07)
[2018-07-24] MEDS ORDERED: SODIUM PHOSPHATE/NA BIPHOS 133 ML ENEMA RC ONE (11:00)
--- NOTE | 2018-07-24 12:03 | PN ---
Teaching Attending Note Name of Resident: Kofi Tao ATTENDING PHYSICIAN STATEMENT I saw and evaluated the patient. I reviewed the resident's note and discussed the case with the resident. I agree with the resident's findings and plan as documented. SUBJECTIVE: Patient seen and examined in the ICU. Awake and alert. No CP or SOB. No occult bleeding overnight. For upper and lower endoscopy today. Intake & Output 07/21/18 07/22/18 07/23/18 07/24/18 23:59 23:59 23:59 23:59 Intake Total 300 Balance 300 Weight 95 lb 90 lb Last Vital Signs Temp Pulse Resp BP Pulse Ox 98.2 F 87 17 132/82 97 07/24/18 10:00 07/24/18 10:00 07/24/18 10:00 07/24/18 10:00 07/24/18 09:00 Active Medications Budesonide/Formoterol Fumarate (Symbicort 80/4.5mcg -) 1 puff IH BID [facility] Last Admin: 07/24/18 10:12 Dose: 1 puff Chlorhexidine Gluconate (Hibiclens For Decolonization -) 1 applic TP HS [facility] Last Admin: 07/23/18 23:48 Dose: 1 applic Sodium Chloride (Normal Saline -) 1,000 mls @ 75 mls/hr IV ASDIR [facility] Last Admin: 07/23/18 17:18 Dose: 75 mls/hr Mupirocin (Bactroban Ointment (For Decolonization) -) 1 applic NS BID [facility] Stop: 07/28/18 21:59 Last Admin: 07/24/18 10:08 Dose: 1 applic Rosuvastatin Calcium (Crestor -) 5 mg PO HS [facility] Last Admin: 07/23/18 23:48 Dose: 5 mg GENERAL: Awake, alert, and oriented, no acute distress HEAD: No signs of trauma, normocephalic, atraumatic EYES: PERRLA, EOMI, sclera anicteric, conjunctiva clear ENT: Moist mucosa NECK: Normal ROM, supple LUNGS: No distress, speaks full sentences, clear to auscultation bilaterally HEART: normal S1 and S2 ABDOMEN: Soft, nontender, non-distended, +bowel sounds. No guarding, no rebound EXTREMITIES : Normal inspection, Normal range of motion, no edema NEUROLOGICAL: non-focal Laboratory Results - last 24 hr 12/20/18 12/20/18 12/20/18 12:01 16:05 17:00 WBC 4.5 Corrected WBC (auto) RBC 4.39 Hgb 13.9 Hct 40.1 MCV 91.4 MCH 31.7 MCHC 34.7 RDW 18.0 H Plt Count 202 MPV 8.2 Absolute Neuts (auto) Neutrophils % Lymphocytes % Monocytes % Eosinophils % Basophils % Nucleated RBC % Platelet Estimate Platelet Comment Sodium Potassium Chloride Carbon Dioxide Anion Gap BUN Creatinine Creat Clearance w eGFR Random Glucose Lactic Acid 1.0 Calcium Phosphorus Magnesium Total Bilirubin AST ALT Alkaline Phosphatase Total Protein Albumin Stool Occult Blood Positive 07/23/18 07/23/18 07/24/18 23:00 23:00 05:30 WBC Cancelled 4.8 Corrected WBC (auto) Cancelled RBC Cancelled 4.32 Hgb Cancelled 13.9 Hct Cancelled 39.7 MCV Cancelled 91.8 MCH Cancelled 32.1 MCHC Cancelled 35.0 RDW Cancelled 18.5 H Plt Count Cancelled 193 MPV Cancelled 8.9 Absolute Neuts (auto) Cancelled Neutrophils % Cancelled Lymphocytes % Cancelled Monocytes % Cancelled Eosinophils % Cancelled Basophils % Cancelled Nucleated RBC % Cancelled Platelet Estimate Cancelled Platelet Comment Cancelled Sodium 142 Potassium 3.8 Chloride 108 H Carbon Dioxide 24 Anion Gap 11 BUN 10 Creatinine 0.7 Creat Clearance w eGFR > 60 Random Glucose 65 L Lactic Acid Calcium 8.3 L Phosphorus 3.9 Magnesium 2.2 Total Bilirubin 1.0 AST 22 ALT 20 Alkaline Phosphatase 80 Total Protein 5.6 L Albumin 3.2 L Stool Occult Blood 07/24/18 05:30 WBC 4.6 Corrected WBC (auto) RBC 4.41 Hgb 13.2 Hct 41.0 MCV 93.1 MCH 30.1 MCHC 32.3 RDW 18.9 H Plt Count 173 MPV 8.5 Absolute Neuts (auto) 2.7 Neutrophils % 59.0 Lymphocytes % 28.4 Monocytes % 10.2 Eosinophils % 1.7 Basophils % 0.7 Nucleated RBC % 0 Platelet Estimate Platelet Comment Sodium Potassium Chloride Carbon Dioxide Anion Gap BUN Creatinine Creat Clearance w eGFR Random Glucose Lactic Acid Calcium Phosphorus Magnesium Total Bilirubin AST ALT Alkaline Phosphatase Total Protein Albumin Stool Occult Blood ASSESSMENT/PLAN: Acute GI Bleed: Suspect lower COPD Remote history of bladder CA HPL Normal transfusion thresholds O2 as needed Follow CBC GI evaluation SCDs for mechanical VTE prophylaxis For Endoscopic evaluation Floor if no active site of bleeding Dr Day
[2018-07-24 14:36] LABS: PLATELET ESTIMATE ADEQUATE
--- NOTE | 2018-07-24 20:08 | PN ---
Progress Note (short form) - Note Progress Note: SUBJECTIVE Feels well - last bowel motion this AM non-bloody. Denies abdominal pain/nausea/ vomiting. No fever/chills. No CP/palps/lightheadedness/diaphoresis OBJECTIVE Last Vital Signs Temp Pulse Resp BP Pulse Ox 98.3 F 100 H 17 130/89 97 07/24/18 18:00 07/24/18 10:00 07/24/18 18:00 07/24/18 18:00 07/24/18 09:00 HEENT- Atraumatic, Normocephalic. Heart - S1, S2, RRR Lungs - clear to auscultation - no crackles/wheeze. Abdomen- soft, non-tender. Bowel Sounds normal. Extremities - no edema. Laboratory Results - last 24 hr 07/23/18 07/23/18 07/24/18 23:00 23:00 05:30 WBC Cancelled 4.8 Corrected WBC (auto) Cancelled RBC Cancelled 4.32 Hgb Cancelled 13.9 Hct Cancelled 39.7 MCV Cancelled 91.8 MCH Cancelled 32.1 MCHC Cancelled 35.0 RDW Cancelled 18.5 H Plt Count Cancelled 193 MPV Cancelled 8.9 Absolute Neuts (auto) Cancelled Total Counted 100 Neutrophils % Cancelled Neutrophils % (Manual) 52.0 Lymphocytes % Cancelled Lymphocytes % (Manual) 31.0 Monocytes % Cancelled Monocytes % (Manual) 11 H Eosinophils % Cancelled Eosinophils % (Manual) 2.0 Basophils % Cancelled Nucleated RBC % Cancelled 1 H Metamyelocytes 1 Platelet Estimate Cancelled Adequate Platelet Comment Cancelled Rare giant plts Sodium 142 Potassium 3.8 Chloride 108 H Carbon Dioxide 24 Anion Gap 11 BUN 10 Creatinine 0.7 Creat Clearance w eGFR > 60 Random Glucose 65 L Calcium 8.3 L Phosphorus 3.9 Magnesium 2.2 Total Bilirubin 1.0 AST 22 ALT 20 Alkaline Phosphatase 80 Total Protein 5.6 L Albumin 3.2 L 07/24/18 05:30 WBC 4.6 Corrected WBC (auto) RBC 4.41 Hgb 13.2 Hct 41.0 MCV 93.1 MCH 30.1 MCHC 32.3 RDW 18.9 H Plt Count 173 MPV 8.5 Absolute Neuts (auto) 2.7 Total Counted Neutrophils % 59.0 Neutrophils % (Manual) Lymphocytes % 28.4 Lymphocytes % (Manual) Monocytes % 10.2 Monocytes % (Manual) Eosinophils % 1.7 Eosinophils % (Manual) Basophils % 0.7 Nucleated RBC % 0 Metamyelocytes Platelet Estimate Platelet Comment Sodium Potassium Chloride Carbon Dioxide Anion Gap BUN Creatinine Creat Clearance w eGFR Random Glucose Calcium Phosphorus Magnesium Total Bilirubin AST ALT Alkaline Phosphatase Total Protein Albumin Current Medications Generic Name Dose Route Start Last Admin Trade Name Freq PRN Reason Stop Dose Admin Budesonide/Formoterol Fumarate 1 puff 07/23/18 10:00 07/24/18 10:12 Symbicort 80/4.5mcg - IH 1 puff BID MARISSA Administration Chlorhexidine Gluconate 1 applic 07/23/18 22:00 07/23/18 23:48 Hibiclens For Decolonization - TP 1 applic HS MARISSA Administration Sodium Chloride 1,000 mls @ 75 mls/hr 07/23/18 16:45 07/23/18 17:18 Normal Saline - IV 75 mls/hr ASDIR MARISSA Administration Mupirocin 1 applic 07/23/18 22:00 07/24/18 10:08 Bactroban Ointment (For Decolonization) - NS 07/28/18 21:59 1 applic BID MARISSA Administration Rosuvastatin Calcium 5 mg 07/23/18 22:00 07/23/18 23:48 Crestor - PO 5 mg HS MARISSA Administration ASSESSMENT/PLAN 87 year-old female with a history of COPD, HLD, 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 LBM this AM - nonbloody. 1. Acute Blood Loss sec to Lower GI bleed H/H stable 13.2/41. Hemodynamically stable. s/p Colonoscopy - Diverticulosis, polyp s/p polypectomy. off Protonix Oral diet resumed. 2. COPD - Stable Continue Symbicort 3. HLD - Continue Crestor. DVT Px - SCDs. Visit type - Emergency Visit Emergency Visit: Yes ED Registration Date: 07/23/18 Care time: The patient presented to the Emergency Department on the above date and was hospitalized for further evaluation of their emergent condition. - New Patient This patient is new to me today: Yes Date on this admission: 07/24/18 - Critical Care Critical Care patient: No - Discharge Referral Referred to [facility] Med P.C.: No
[2018-07-24] MEDS: CHLORHEXIDINE GLUCONATE 4% CLEANSER FOR DECOLONIZATION TP SCH (23:07)
[2018-07-24] MEDS: SODIUM CHLORIDE 1,000 ML IV SCH (23:07)
[2018-07-24] MEDS: ROSUVASTATIN CA 5 MG TABLET (FP) PO SCH (23:07)
[2018-07-25] MEDS: SODIUM CHLORIDE 1,000 ML IV SCH (00:20)
[2018-07-25 06:03] LABS: BASO % 0.6 % (0-2.0); EOS % 1.3 % (0-4.5); HEMATOCRIT 36.1 % (32.4-45.2); HEMOGLOBIN 11.9 GM/dL (10.7-15.3); LYMPH % 22.3 % (8-40); MCH 30.5 pg (25.7-33.7); MEAN CELL VOLUME 92.2 fl (80-96); MEAN PLT VOLUME 8.4 fl (7.5-11.1); MONO % 9.3 % (3.8-10.2); NEUT % 66.5 % (42.8-82.8); PLATELET COUNT 169 K/MM3 (134-434); RBC 3.91 M/mm3 (3.60-5.2); WHITE BLOOD COUNT 5.7 K/mm3 (4.0-10.0)
[2018-07-25 07:45] LABS: ALK PHOS 77 U/L (45-117); ANION GAP 10 MMOL/L (8-16); BILIRUBIN,TOTAL 0.7 mg/dL (0.2-1); BLOOD UREA NITROGEN 12 mg/dL (7-18); CALCIUM 7.8 mg/dL (8.5-10.1); CHLORIDE 106 mmol/L (98-107); CO2 24 mmol/L (21-32); CREATININE 0.7 mg/dL (0.55-1.3); GLUCOSE,RANDOM 83 mg/dL (74-106); POTASSIUM 3.7 mmol/L (3.5-5.1); SGOT/AST 23 U/L (15-37); SGPT/ALT 21 U/L (13-61); SODIUM 139 mmol/L (136-145); TOT PROT 5.3 g/dl (6.4-8.2)
--- NOTE | 2018-07-25 08:29 | PN ---
Progress Note, Physician History of Present Illness: Patient seen and examined at bedside Overnight events of multiple large bloody BMs noted. GI Dr. Yang aware. Patient upset about being woken up at 530am for blood draws reports being anxious - Current Medication List Current Medications: Active Medications Budesonide/Formoterol Fumarate (Symbicort 80/4.5mcg -) 1 puff IH BID [facility] Last Admin: 07/24/18 23:07 Dose: 1 puff Chlorhexidine Gluconate (Hibiclens For Decolonization -) 1 applic TP HS [facility] Last Admin: 07/24/18 23:07 Dose: 1 applic Sodium Chloride (Normal Saline -) 1,000 mls @ 42 mls/hr IV ASDIR MARISSA Last Admin: 07/25/18 00:20 Dose: 42 mls/hr Mupirocin (Bactroban Ointment (For Decolonization) -) 1 applic NS BID MARISSA Stop: 07/28/18 21:59 Last Admin: 07/24/18 23:07 Dose: 1 applic Rosuvastatin Calcium (Crestor -) 5 mg PO HS [facility] Last Admin: 07/24/18 23:07 Dose: 5 mg - Objective Vital Signs: Vital Signs Temperature 98.2 F 07/25/18 06:00 Pulse Rate 101 H 07/25/18 06:00 Respiratory Rate 17 07/25/18 06:00 Blood Pressure 137/87 07/25/18 06:00 O2 Sat by Pulse Oximetry (%) 97 07/24/18 21:00 Constitutional: Yes: Well Nourished, No Distress, Calm Eyes: Yes: Conjunctiva Clear, EOM Intact HENT: Yes: Atraumatic, Normocephalic Neck: Yes: Supple, Trachea Midline Cardiovascular: Yes: Tachycardia, S1, S2. No: Murmur Respiratory: Yes: Regular, CTA Bilaterally Gastrointestinal: Yes: Normal Bowel Sounds, Soft. No: Tenderness Edema: No Neurological: Yes: Alert, Oriented Labs: CBC, BMP 07/25/18 05:30 07/25/18 05:30 INR, PTT INR 0.93 (0.82-1.09) L 07/22/18 23:00 Assessment/Plan 87F with GI bleed s/p colonoscopy now with multiple episodes of GI bleeding overnight The patient is an 87F w/ a history of COPD, distant bladder ca hx, and HLD who presents for evaluation of 1d of multiple episodes of BRBPR and associated generalized weakness. Neuro Denies pain HEENT no issues CV HLD continue statin PULM COPD continue symbicort bronchodilators and O2 PRN GI Bright Red Blood Per Rectum Polypectomy of sessile polyp f/u pathology trend CBC q6h monitor vital signs large bore IVs Nutrition NPO for now Hx of bladder cancer No current complaints UA w/o blood HEME Hb 11.9 continue to trend CBC transfuse PRN GI aware DVT ppx SCDs ID no issues ENDO no issues CCTime 35 min ICU care
[2018-07-25] MEDS: MUPIROCIN 2% TOPICAL OINTMENT FOR DECOLONIZATION NS SCH ×2 (09:27→21:51)
--- NOTE | 2018-07-25 10:25 | PN ---
Teaching Attending Note Name of Resident: Timothy Pruett ATTENDING PHYSICIAN STATEMENT I saw and evaluated the patient. I reviewed the resident's note and discussed the case with the resident. I agree with the resident's findings and plan as documented. SUBJECTIVE: Pt seen and examined in the ICU. BRBPR this AM with clots. Denies abdominal pain , shortness of breath or chest pain. OBJECTIVE: Vital Signs Period Temp Pulse Resp BP Sys/Vila Pulse Ox Last 24 Hr 97.6 F-99.0 F 92-104 16-21 108-149/67-104 97-97 Intake & Output 07/22/18 07/23/18 07/24/18 07/25/18 23:59 23:59 23:59 23:59 Intake Total 300 1025 294 Balance 300 1025 294 Weight 43.091 kg 40.823 kg 40.823 kg Gen: NAD at rest Heart: RRR Lung: decreased breath sounds at the bases Abd: soft, nontender Ext: no edema CBC, BMP 07/25/18 05:30 07/25/18 05:30 Active Medications Budesonide/Formoterol Fumarate (Symbicort 80/4.5mcg -) 1 puff IH BID [facility] Last Admin: 07/24/18 23:07 Dose: 1 puff Chlorhexidine Gluconate (Hibiclens For Decolonization -) 1 applic TP HS [facility] Last Admin: 07/24/18 23:07 Dose: 1 applic Sodium Chloride (Normal Saline -) 1,000 mls @ 42 mls/hr IV ASDIR [facility] Last Admin: 07/25/18 00:20 Dose: 42 mls/hr Mupirocin (Bactroban Ointment (For Decolonization) -) 1 applic NS BID [facility] Stop: 07/28/18 21:59 Last Admin: 07/25/18 09:27 Dose: 1 applic Rosuvastatin Calcium (Crestor -) 5 mg PO HS [facility] Last Admin: 07/24/18 23:07 Dose: 5 mg ASSESSMENT AND PLAN: GI Bleed Diverticulosis s/p Polypectomy Acute Blood Loss Anemia COPD Hyperlipidemia h/o Bladder Ca - monitor H/H - transfuse as needed - GI f/u - IVF - NPO for now - DVT prophylaxis - ensure large bore peripheral IV access - continue ICU monitoring
[2018-07-25] MEDS: BUDESONIDE/FORMETEROL FUMARATE 80/4.5 mcg INHALER IH SCH ×2 (11:28→21:51)
[2018-07-25 12:31] LABS: HEMATOCRIT 34.7 % (32.4-45.2); HEMOGLOBIN 12.4 GM/dL (10.7-15.3); MCH 32.6 pg (25.7-33.7); MCHC 35.7 g/dl (32.0-36.0); MEAN CELL VOLUME 91.4 fl (80-96); MEAN PLT VOLUME 8.5 fl (7.5-11.1); PLATELET COUNT 186 K/MM3 (134-434); RDW 17.5 % (11.6-15.6); WHITE BLOOD COUNT 5.3 K/mm3 (4.0-10.0)
--- NOTE | 2018-07-25 12:42 | PN ---
Progress Note (short form) - Note Progress Note: SUBJECTIVE Multiple bloody bowel movements overnight s/p Colonoscopy. Denies abdominal pain/nausea/vomiting. No fever/chills. No CP/palps/lightheadedness/diaphoresis OBJECTIVE Afebrile T 99 overnight, Hemodynamically Stable. Last Vital Signs Temp Pulse Resp BP Pulse Ox 98.6 F 100 H 18 109/78 97 07/25/18 10:00 07/25/18 10:00 07/25/18 10:00 07/25/18 10:00 07/25/18 09:00 HEENT- Atraumatic, Normocephalic. Heart - S1, S2, RRR Lungs - clear to auscultation - no crackles/wheeze. Abdomen- soft, non-tender. Bowel Sounds normal. Extremities - no edema. No calf tenderness. Laboratory Results - last 24 hr 07/22/18 07/23/18 07/25/18 23:00 23:00 05:30 WBC 5.7 RBC 3.91 Hgb 11.9 Hct 36.1 MCV 92.2 MCH 30.5 MCHC 33.0 RDW 18.0 H Plt Count 169 MPV 8.4 Absolute Neuts (auto) 3.8 Total Counted 100 Neutrophils % 66.5 Neutrophils % (Manual) 52.0 Lymphocytes % 22.3 D Lymphocytes % (Manual) 31.0 Monocytes % 9.3 Monocytes % (Manual) 11 H Eosinophils % 1.3 Eosinophils % (Manual) 2.0 Basophils % 0.6 Nucleated RBC % 1 H 0 Metamyelocytes 1 Platelet Estimate Adequate Platelet Comment Rare giant plts Sodium Potassium Chloride Carbon Dioxide Anion Gap BUN Creatinine Creat Clearance w eGFR Random Glucose Calcium Total Bilirubin AST ALT Alkaline Phosphatase Total Protein Albumin Crossmatch See Detail 07/25/18 07/25/18 05:30 12:08 WBC 5.3 RBC 3.80 Hgb 12.4 Hct 34.7 MCV 91.4 MCH 32.6 MCHC 35.7 RDW 17.5 H Plt Count 186 MPV 8.5 Absolute Neuts (auto) Total Counted Neutrophils % Neutrophils % (Manual) Lymphocytes % Lymphocytes % (Manual) Monocytes % Monocytes % (Manual) Eosinophils % Eosinophils % (Manual) Basophils % Nucleated RBC % Metamyelocytes Platelet Estimate Platelet Comment Sodium 139 Potassium 3.7 Chloride 106 Carbon Dioxide 24 Anion Gap 10 BUN 12 Creatinine 0.7 Creat Clearance w eGFR > 60 Random Glucose 83 Calcium 7.8 L Total Bilirubin 0.7 AST 23 ALT 21 Alkaline Phosphatase 77 Total Protein 5.3 L Albumin 3.0 L Crossmatch Current Medications Generic Name Dose Route Start Last Admin Trade Name Freq PRN Reason Stop Dose Admin Budesonide/Formoterol Fumarate 1 puff 07/23/18 10:00 07/25/18 11:28 Symbicort 80/4.5mcg - IH 1 puff BID MARISSA Administration Chlorhexidine Gluconate 1 applic 07/23/18 22:00 07/24/18 23:07 Hibiclens For Decolonization - TP 1 applic HS MARISSA Administration Sodium Chloride 1,000 mls @ 42 mls/hr 07/25/18 00:11 07/25/18 00:20 Normal Saline - IV 42 mls/hr ASDIR MARSISA Administration Mupirocin 1 applic 07/23/18 22:00 07/25/18 09:27 Bactroban Ointment (For Decolonization) - NS 07/28/18 21:59 1 applic BID MARISSA Administration Rosuvastatin Calcium 5 mg 07/23/18 22:00 07/24/18 23:07 Crestor - PO 5 mg HS MARISSA Administration ASSESSMENT/PLAN 87 year-old female with a history of COPD, HLD, 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 1. Acute Blood Loss sec to Lower GI bleed H/H drop to 11.9/36 from 13/38.5. Further bloody BMs overnight s/p Colonoscopy which showed Diverticulosis, polyp s/p polypectomy. Hemodynamically Stable. NPO. Awaiting GI re-eval and recommendations. 2. COPD - Stable Continue Symbicort 3. HLD - Continue Crestor. DVT Px - SCDs. Problem List - Problems (1) Lower GI bleed Code(s): K92.2 - GASTROINTESTINAL HEMORRHAGE, UNSPECIFIED Visit type - Emergency Visit Emergency Visit: Yes ED Registration Date: 07/23/18 Care time: The patient presented to the Emergency Department on the above date and was hospitalized for further evaluation of their emergent condition. - New Patient This patient is new to me today: No - Critical Care Critical Care patient: No - Discharge Referral Referred to [facility] Med P.C.: No
--- NOTE | 2018-07-25 13:27 | PN ---
GI Progress Note Subjective: last bm was 3 am this morning, repeat CBC stable Hgb, asymptomatic - Objective Vital Signs: Vital Signs Temperature 98.6 F 07/25/18 10:00 Pulse Rate 95 H 07/25/18 12:00 Respiratory Rate 18 07/25/18 12:00 Blood Pressure 109/77 07/25/18 12:00 O2 Sat by Pulse Oximetry (%) 97 07/25/18 09:00 Constitutional: Well Nourished Eyes: Yes: Conjunctiva Clear HENT: Yes: Atraumatic Neck: Yes: Supple Cardiovascular: Yes: Regular Rate and Rhythm Respiratory: Yes: CTA Bilaterally ...Palpate: Yes: Soft. No: Firm/Rigid, Guarding, Hepatomegaly, Mass, Pulsatile Mass, Splenomegaly, Tenderness ...Rectal Exam: Yes: WNL (no bleeding, enlarged intermal hemorrhoids) Labs: CBC, BMP 07/25/18 12:08 07/25/18 05:30 INR, PTT INR 0.93 (0.82-1.09) L 07/22/18 23:00 Problem List - Problems (1) Lower GI bleed Assessment/Plan: secondary to diverticular bleeding no stable Continus ICU monitoring for 24 hrs Code(s): K92.2 - GASTROINTESTINAL HEMORRHAGE, UNSPECIFIED
[2018-07-25] MEDS: guaiFENesin 200 MG/10 ML 10 ML UNIT-DOSE CUPS PO PRN ×2 (16:26→20:50)
[2018-07-25] MEDS: CHLORHEXIDINE GLUCONATE 4% CLEANSER FOR DECOLONIZATION TP SCH (21:51)
[2018-07-25] MEDS: ROSUVASTATIN CA 5 MG TABLET (FP) PO SCH (21:51)
--- NOTE | 2018-07-26 04:37 | PN ---
Physical Exam: ICU team SUBJECTIVE: Patient seen and examined at bed side , had BP over night with some residual bright blood and some clots, denies any abdominal pain , N/V/D/C, denies light headedness, dizziness , feels brant and asking to go home. OBJECTIVE: Vital Signs Period Temp Pulse Resp BP Sys/Vila Pulse Ox Last 24 Hr 98.1 F-98.7 F 89-108 17-20 109-137/64-94 95-97 PE General: laying down in bed in AND , AAOx3 Head : NC/AT HEENT: DAX, EOMI, icteric sclera Heart: tachycardic, normal S1, S2, no MRG lungs: CTA B/L Abdomen: soft, ND, NT, hyperactive bowel sounds. no rebound or guarding neuro: no focal deficit, AAOx3 skin: warm dry Laboratory Results - last 24 hr 07/22/18 07/25/18 07/25/18 23:00 05:30 05:30 WBC 5.7 RBC 3.91 Hgb 11.9 Hct 36.1 MCV 92.2 MCH 30.5 MCHC 33.0 RDW 18.0 H Plt Count 169 MPV 8.4 Absolute Neuts (auto) 3.8 Neutrophils % 66.5 Lymphocytes % 22.3 D Monocytes % 9.3 Eosinophils % 1.3 Basophils % 0.6 Nucleated RBC % 0 Sodium 139 Potassium 3.7 Chloride 106 Carbon Dioxide 24 Anion Gap 10 BUN 12 Creatinine 0.7 Creat Clearance w eGFR > 60 Random Glucose 83 Calcium 7.8 L Total Bilirubin 0.7 AST 23 ALT 21 Alkaline Phosphatase 77 Total Protein 5.3 L Albumin 3.0 L Crossmatch See Detail 07/25/18 12:08 WBC 5.3 RBC 3.80 Hgb 12.4 Hct 34.7 MCV 91.4 MCH 32.6 MCHC 35.7 RDW 17.5 H Plt Count 186 MPV 8.5 Absolute Neuts (auto) Neutrophils % Lymphocytes % Monocytes % Eosinophils % Basophils % Nucleated RBC % Sodium Potassium Chloride Carbon Dioxide Anion Gap BUN Creatinine Creat Clearance w eGFR Random Glucose Calcium Total Bilirubin AST ALT Alkaline Phosphatase Total Protein Albumin Crossmatch Active Medications Generic Name Dose Route Start Last Admin Trade Name Freq PRN Reason Stop Dose Admin Budesonide/Formoterol Fumarate 1 puff 07/23/18 10:00 07/25/18 21:51 Symbicort 80/4.5mcg - IH 1 puff BID MARISSA Administration Chlorhexidine Gluconate 1 applic 07/23/18 22:00 07/25/18 21:51 Hibiclens For Decolonization - TP 1 applic HS MARISSA Administration Guaifenesin 10 ml 07/25/18 16:16 07/25/18 20:50 Robitussin - PO 10 ml Q6H PRN Administration COUGH Sodium Chloride 1,000 mls @ 42 mls/hr 07/25/18 00:11 07/25/18 00:20 Normal Saline - IV 42 mls/hr ASDIR MARISSA Administration Mupirocin 1 applic 07/23/18 22:00 07/25/18 21:51 Bactroban Ointment (For Decolonization) - NS 07/28/18 21:59 1 applic BID MARISSA Administration Rosuvastatin Calcium 5 mg 07/23/18 22:00 07/25/18 21:51 Crestor - PO 5 mg HS MARISSA Administration CBC, BMP 07/26/18 05:15 07/26/18 05:15 ASSESSMENT/PLAN: 87 year old female presented with 4 episode of lower GI bleed , S/P one unit of blood in [place] ED. recieved partial prep will admit to icu for monitoring # GI bleed lower * had one BP last night with some residual blood and clots * H/H stable * Vitals Q 4 hr * 2 Large Iv pores, * dc IV fluids * monitor H/H Q 4 hr , transfuse if below 7 * coagulation studies , PT, PTT, INR * Lfts , bilir, total and direct * GI consult : s/p colonoscopy likely diverticular bleed vs hemorrhoids , had another episode of lower GI bleed , will cont to monitor * clear liquids # Asthma # HLD resume home emds. # FEN * F: no standing fluids * E: monitor lytes * N: clear liquids #proph * DVTS: SCDS * GI: protonix # dispo: * monitor in ICU * transferred to med surg pending bed Visit type - Emergency Visit Emergency Visit: Yes ED Registration Date: 07/23/18 Care time: The patient presented to the Emergency Department on the above date and was hospitalized for further evaluation of their emergent condition. - New Patient This patient is new to me today: No - Critical Care Critical Care patient: Yes Total Critical Care Time (in minutes): 45 Critical Care Statement: The care of this patient involved high complexity decision making to prevent further life threatening deterioration of the patient 's condition and/or to evaluate & treat vital organ system(s) failure or risk of failure.
[2018-07-26 05:57] LABS: HEMATOCRIT 37.4 % (32.4-45.2); HEMOGLOBIN 12.4 GM/dL (10.7-15.3); MCH 30.6 pg (25.7-33.7); MCHC 33.1 g/dl (32.0-36.0); MEAN CELL VOLUME 92.2 fl (80-96); MEAN PLT VOLUME 8.5 fl (7.5-11.1); PLATELET COUNT 181 K/MM3 (134-434); RBC 4.06 M/mm3 (3.60-5.2); RDW 17.2 % (11.6-15.6); WHITE BLOOD COUNT 5.7 K/mm3 (4.0-10.0)
[2018-07-26 06:27] LABS: ALBUMIN 3.6 g/dl (3.4-5.0); ALK PHOS 89 U/L (45-117); ANION GAP 5 MMOL/L (8-16); BILIRUBIN,TOTAL 0.8 mg/dL (0.2-1); BLOOD UREA NITROGEN 7 mg/dL (7-18); CALCIUM 8.3 mg/dL (8.5-10.1); CHLORIDE 106 mmol/L (98-107); CO2 30 mmol/L (21-32); CREATININE 0.8 mg/dL (0.55-1.3); GLUCOSE,RANDOM 99 mg/dL (74-106); MAGNESIUM 2.2 mg/dL (1.8-2.4); PHOSPHOROUS 3.2 mg/dL (2.5-4.9); POTASSIUM 3.7 mmol/L (3.5-5.1); SGOT/AST 29 U/L (15-37); SGPT/ALT 25 U/L (13-61); SODIUM 141 mmol/L (136-145); TOT PROT 6.2 g/dl (6.4-8.2)
--- NOTE | 2018-07-26 09:40 | PN ---
Teaching Attending Note Name of Resident: Vick Silverio ATTENDING PHYSICIAN STATEMENT I saw and evaluated the patient. I reviewed the resident's note and discussed the case with the resident. I agree with the resident's findings and plan as documented. SUBJECTIVE: Pt seen and examined in the ICU. Still some blood per rectum but H/H stable. Denies shortness of breath or chest pain. OBJECTIVE: Vital Signs Period Temp Pulse Resp BP Sys/Vila Pulse Ox Last 24 Hr 98.1 F-98.7 F 87-108 17-21 109-127/60-94 95 Intake & Output 07/23/18 07/24/18 07/25/18 07/26/18 23:59 23:59 23:59 23:59 Intake Total 300 1025 1846 Output Total 550 Balance 300 1025 1846 -550 Weight 40.823 kg 40.823 kg Gen: NAD at rest Heart: RRR Lung: decreased breath sounds at the bases Abd: soft, nontender Ext: no edema CBC, BMP 07/26/18 05:15 07/26/18 05:15 Active Medications Budesonide/Formoterol Fumarate (Symbicort 80/4.5mcg -) 1 puff IH BID [facility] Last Admin: 07/25/18 21:51 Dose: 1 puff Chlorhexidine Gluconate (Hibiclens For Decolonization -) 1 applic TP HS [facility] Last Admin: 07/25/18 21:51 Dose: 1 applic Guaifenesin (Robitussin -) 10 ml PO Q6H PRN PRN Reason: COUGH Last Admin: 07/25/18 20:50 Dose: 10 ml Sodium Chloride (Normal Saline -) 1,000 mls @ 42 mls/hr IV ASDIR [facility] Last Admin: 07/25/18 00:20 Dose: 42 mls/hr Mupirocin (Bactroban Ointment (For Decolonization) -) 1 applic NS BID MARISSA Stop: 07/28/18 21:59 Last Admin: 07/25/18 21:51 Dose: 1 applic Rosuvastatin Calcium (Crestor -) 5 mg PO HS [facility] Last Admin: 07/25/18 21:51 Dose: 5 mg ASSESSMENT AND PLAN: GI Bleed Diverticulosis s/p Polypectomy Acute Blood Loss Anemia COPD Hyperlipidemia h/o Bladder Ca - monitor H/H - PO per GI - DVT prophylaxis - can monitor on floor, hopefully d/c home by tomorrow
[2018-07-26] MEDS: MUPIROCIN 2% TOPICAL OINTMENT FOR DECOLONIZATION NS SCH ×2 (10:08→21:08)
[2018-07-26] MEDS: BUDESONIDE/FORMETEROL FUMARATE 80/4.5 mcg INHALER IH SCH ×2 (10:09→21:08)
[2018-07-26] MEDS: SODIUM CHLORIDE 1,000 ML IV SCH (12:33)
--- NOTE | 2018-07-26 15:42 | PN ---
Progress Note (short form) - Note Progress Note: SUBJECTIVE More bloody bowel movements overnight s/p Colonoscopy, less than the day before. Denies abdominal pain/nausea/vomiting. No fever/chills. No CP/palps/ lightheadedness/diaphoresis OBJECTIVE Afebrile, Hemodynamically Stable. Last Vital Signs Temp Pulse Resp BP Pulse Ox 98.6 F 86 20 144/89 96 07/26/18 14:00 07/26/18 14:00 07/26/18 12:00 07/26/18 14:00 07/26/18 09:00 HEENT- Atraumatic, Normocephalic. Heart - S1, S2, RRR Lungs - clear to auscultation - no crackles/wheeze. Abdomen- soft, non-tender. Bowel Sounds normal. Extremities - no edema. No calf tenderness. Laboratory Results - last 24 hr 07/22/18 07/26/18 07/26/18 23:00 05:15 05:15 WBC 5.7 RBC 4.06 Hgb 12.4 Hct 37.4 MCV 92.2 MCH 30.6 MCHC 33.1 RDW 17.2 H Plt Count 181 MPV 8.5 Sodium 141 Potassium 3.7 Chloride 106 Carbon Dioxide 30 Anion Gap 5 L BUN 7 Creatinine 0.8 Creat Clearance w eGFR > 60 Random Glucose 99 Calcium 8.3 L Phosphorus 3.2 Magnesium 2.2 Total Bilirubin 0.8 AST 29 ALT 25 Alkaline Phosphatase 89 Total Protein 6.2 L Albumin 3.6 Blood Type B POSITIVE Antibody Screen Negative Crossmatch See Detail Current Medications Generic Name Dose Route Start Last Admin Trade Name Freq PRN Reason Stop Dose Admin Budesonide/Formoterol Fumarate 1 puff 07/23/18 10:00 07/26/18 10:09 Symbicort 80/4.5mcg - IH 1 puff BID MARISSA Administration Chlorhexidine Gluconate 1 applic 07/23/18 22:00 07/25/18 21:51 Hibiclens For Decolonization - TP 1 applic HS MARISSA Administration Guaifenesin 10 ml 07/25/18 16:16 07/25/18 20:50 Robitussin - PO 10 ml Q6H PRN Administration COUGH Mupirocin 1 applic 07/23/18 22:00 07/26/18 10:08 Bactroban Ointment (For Decolonization) - NS 07/28/18 21:59 1 applic BID MARISSA Administration Rosuvastatin Calcium 5 mg 07/23/18 22:00 07/25/18 21:51 Crestor - PO 5 mg HS MARISSA Administration Starch 1 each 07/26/18 22:00 Anusol Suppository - RC BID [facility] ASSESSMENT/PLAN 87 year-old female with a history of COPD, HLD, 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 1. Acute Blood Loss sec to Lower GI bleed H/H relatively stable - down to 12.4/34.7 from 38.5. Further bloody BMs overnight, getting less voluminous and less frequent s/p Colonoscopy 07/24 which showed Diverticulosis, polyp s/p polypectomy. Hemodynamically Stable. Tolerating clear liquids. Further recommendations per GI. 2. COPD - Stable Continue Symbicort 3. HLD - Continue Crestor. DVT Px - SCDs. Problem List - Problems (1) Lower GI bleed Code(s): K92.2 - GASTROINTESTINAL HEMORRHAGE, UNSPECIFIED Visit type - Emergency Visit Emergency Visit: Yes ED Registration Date: 07/23/18 Care time: The patient presented to the Emergency Department on the above date and was hospitalized for further evaluation of their emergent condition. - New Patient This patient is new to me today: No - Critical Care Critical Care patient: No - Discharge Referral Referred to [facility] Med P.C.: No
[2018-07-26] MEDS ORDERED: PT OWN MED DRAWER 7, Y5N ONE (20:17)
[2018-07-26] MEDS: amLODIPine BESYLATE 5 MG TABLET (FP) PO SCH (20:18)
[2018-07-26] MEDS: CHLORHEXIDINE GLUCONATE 4% CLEANSER FOR DECOLONIZATION TP SCH (21:08)
[2018-07-26] MEDS: ROSUVASTATIN CA 5 MG TABLET (FP) PO SCH (21:08)
[2018-07-26] MEDS: PHENYLEPHRINE 0.25%/STARCH 1 EACH SUPP.RECT RC SCH (21:08)
[2018-07-27 06:54] LABS: BASO % 0.6 % (0-2.0); EOS % 2.9 % (0-4.5); HEMATOCRIT 33.1 % (32.4-45.2); HEMOGLOBIN 11.2 GM/dL (10.7-15.3); LYMPH % 26.8 % (8-40); MCH 30.9 pg (25.7-33.7); MCHC 33.8 g/dl (32.0-36.0); MEAN CELL VOLUME 91.3 fl (80-96); MEAN PLT VOLUME 8.8 fl (7.5-11.1); MONO % 11.8 % (3.8-10.2); NEUT % 57.9 % (42.8-82.8); PLATELET COUNT 167 K/MM3 (134-434); RBC 3.63 M/mm3 (3.60-5.2); WHITE BLOOD COUNT 4.1 K/mm3 (4.0-10.0)
[2018-07-27 07:16] LABS: ALBUMIN 3.1 g/dl (3.4-5.0); ALK PHOS 79 U/L (45-117); ANION GAP 8 MMOL/L (8-16); BILIRUBIN,TOTAL 0.6 mg/dL (0.2-1); BLOOD UREA NITROGEN 5 mg/dL (7-18); CALCIUM 8.3 mg/dL (8.5-10.1); CHLORIDE 104 mmol/L (98-107); CO2 30 mmol/L (21-32); CREATININE 0.6 mg/dL (0.55-1.3); GLUCOSE,RANDOM 90 mg/dL (74-106); MAGNESIUM 2.2 mg/dL (1.8-2.4); PHOSPHOROUS 3.3 mg/dL (2.5-4.9); POTASSIUM 3.4 mmol/L (3.5-5.1); SGOT/AST 24 U/L (15-37); SGPT/ALT 23 U/L (13-61); SODIUM 142 mmol/L (136-145); TOT PROT 5.4 g/dl (6.4-8.2)
--- NOTE | 2018-07-27 07:43 | PN ---
Physical Exam: SUBJECTIVE: Patient seen and examined. Patient reports feeling well. No BMs overnight. Most recent BM not bloody. Patient would like to go home. Continues to endorse feeling anxious, attributes it to wanting to know if she can be home for the holidays OBJECTIVE: Vital Signs Period Temp Pulse Resp BP Sys/Vila Pulse Ox Last 24 Hr 97.8 F-98.6 F 80-106 17-22 108-176/66-110 96-96 GENERAL: Awake, alert, and fully oriented, in no acute distress HEAD: No signs of trauma, normocephalic, atraumatic EYES: PERRLA, EOMI, sclera anicteric, conjunctiva clear ENT: Hearing grossly normal, nares patent, oropharynx clear without exudates. Moist mucosa NECK: Normal ROM, supple LUNGS: No distress, speaks full sentences, clear to auscultation bilaterally HEART: Tachycardic rate with regular rhythm, normal S1 and S2, no murmurs appreciated, peripheral pulses normal and equal bilaterally ABDOMEN: Soft, nontender, non-distended, +bowel sounds. No guarding, no rebound EXTREMITIES : Normal inspection, Normal range of motion, no edema NEUROLOGICAL: Cranial nerves II through XII grossly intact. Normal speech, no focal sensorimotor deficits SKIN: Small stage II pressure wound on sacrum measuring 0.5cm x 0.3cm. Otherwise warm/dry Active Medications Generic Name Dose Route Start Last Admin Trade Name Freq PRN Reason Stop Dose Admin Amlodipine Besylate 5 mg 07/26/18 20:15 07/26/18 20:18 Norvasc - PO 5 mg DAILY MARISSA Administration Budesonide/Formoterol Fumarate 1 puff 07/23/18 10:00 07/26/18 21:08 Symbicort 80/4.5mcg - IH 1 puff BID MARISSA Administration Chlorhexidine Gluconate 1 applic 07/23/18 22:00 07/26/18 21:08 Hibiclens For Decolonization - TP 1 applic HS MARISSA Administration Guaifenesin 10 ml 07/25/18 16:16 07/25/18 20:50 Robitussin - PO 10 ml Q6H PRN Administration COUGH Mupirocin 1 applic 07/23/18 22:00 07/26/18 21:08 Bactroban Ointment (For Decolonization) - NS 07/28/18 21:59 1 applic BID MARISSA Administration Rosuvastatin Calcium 5 mg 07/23/18 22:00 07/26/18 21:08 Crestor - PO 5 mg HS MARISSA Administration Starch 1 each 07/26/18 22:00 07/26/18 21:08 Anusol Suppository - RC 1 each BID MARISSA Administration ASSESSMENT/PLAN: The patient is an 87F w/ a history of COPD, distant bladder ca hx, and HLD who presents for evaluation of 1d of multiple episodes of BRBPR and associated generalized weakness. Neuro Denies pain HEENT Cataracts -Vision grossly intact -Surgery scheduled for October CV HLD -Home Rosuvastatin restarted HTN -Norvasc PULM COPD -Will continue home meds GI Bright Red Blood Per Rectum -Pt HD stable at this time -S/p colonscopy 07/24/2018 -Pt w/o BPR yesterday Nutrition -Soft diet Hx of bladder cancer No current complaints UA w/o blood HEME Hgb 12.4 -> 11.2 -pt w/o dizziness, palpitations, or confusion -no need for further transfusion at this time, will CTM. Serial CBCs ordered. -Will obtain a 1400 CBC DVT ppx -Mechanical ID Afebrile, no leukocytosis CTM ENDO Denies hx of DM or thyroid pathology MSK Pressure wound on coccyx present on arrival, 0.5cm x 0.3cm -Pressure dressing ordered. To be kept dry. Change Q7day or if soiled -Of note, pt reports that she has had it for some time and 'think[s] of it as normal'. Dispo: To floor. If PM CBC stable, patient suitable for discharge from our standpoint Visit type - Emergency Visit Emergency Visit: Yes ED Registration Date: 07/23/18 Care time: The patient presented to the Emergency Department on the above date and was hospitalized for further evaluation of their emergent condition. - New Patient This patient is new to me today: No - Critical Care Critical Care patient: Yes Total Critical Care Time (in minutes): 30 Critical Care Statement: The care of this patient involved high complexity decision making to prevent further life threatening deterioration of the patient 's condition and/or to evaluate & treat vital organ system(s) failure or risk of failure.
[2018-07-27] MEDS ORDERED: POTASSIUM CHLORIDE ORAL LIQUID 20 MEQ/15 ML PO ONE (08:20)
[2018-07-27] MEDS: BUDESONIDE/FORMETEROL FUMARATE 80/4.5 mcg INHALER IH SCH (08:24)
[2018-07-27] MEDS ORDERED: PT OWN MED DRAWER 7, Y5N ONE (08:40)
[2018-07-27] MEDS: amLODIPine BESYLATE 5 MG TABLET (FP) PO SCH (09:12)
[2018-07-27] MEDS: MUPIROCIN 2% TOPICAL OINTMENT FOR DECOLONIZATION NS SCH (09:14)
[2018-07-27] MEDS: guaiFENesin 200 MG/10 ML 10 ML UNIT-DOSE CUPS PO PRN (11:05)
[2018-07-27] MEDS: PHENYLEPHRINE 0.25%/STARCH 1 EACH SUPP.RECT RC SCH ×2 (11:13→11:45)
--- NOTE | 2018-07-27 11:23 | PN ---
Teaching Attending Note Name of Resident: Kofi Tao ATTENDING PHYSICIAN STATEMENT I saw and evaluated the patient. I reviewed the resident's note and discussed the case with the resident. I agree with the resident's findings and plan as documented. SUBJECTIVE: Pt seen and examined in the ICU. No bowel movements overnight. Tolerating PO liquids. No shortness of breath or chest pain. OBJECTIVE: Vital Signs Period Temp Pulse Resp BP Sys/Vila Pulse Ox Last 24 Hr 97.8 F-98.6 F 75-111 15-22 108-176/66-110 96-96 Intake & Output 07/24/18 07/25/18 07/26/18 07/27/18 23:59 23:59 23:59 23:59 Intake Total 1025 1846 1200 Output Total 1350 Balance 1025 1846 -150 Weight 40.823 kg Gen: NAD at rest Heart: RRR Lung: decreased breath sounds at the bases Abd: soft, nontender Ext: no edema CBC, BMP 07/27/18 05:35 07/27/18 05:35 Active Medications Amlodipine Besylate (Norvasc -) 5 mg PO DAILY [facility] Last Admin: 07/27/18 09:12 Dose: 5 mg Budesonide/Formoterol Fumarate (Symbicort 80/4.5mcg -) 1 puff IH BID [facility] Last Admin: 07/27/18 08:24 Dose: 1 puff Chlorhexidine Gluconate (Hibiclens For Decolonization -) 1 applic TP HS [facility] Last Admin: 07/26/18 21:08 Dose: 1 applic Guaifenesin (Robitussin -) 10 ml PO Q6H PRN PRN Reason: COUGH Last Admin: 07/27/18 11:05 Dose: 10 ml Mupirocin (Bactroban Ointment (For Decolonization) -) 1 applic NS BID [facility] Stop: 07/28/18 21:59 Last Admin: 07/27/18 09:14 Dose: 1 applic Rosuvastatin Calcium (Crestor -) 5 mg PO HS [facility] Last Admin: 07/26/18 21:08 Dose: 5 mg Starch (Anusol Suppository -) 1 each RC BID [facility] Last Admin: 07/27/18 11:13 Dose: 1 each ASSESSMENT AND PLAN: GI Bleed Diverticulosis s/p Polypectomy Acute Blood Loss Anemia COPD Hyperlipidemia h/o Bladder Ca - monitor H/H - advance diet as tolerated - DVT prophylaxis - can monitor on floor or d/c home if H/H stable
[2018-07-27] MEDS ORDERED: HYDROCORTISONE ACETATE 25 MG/SUPP.RECT RC ONE (12:00)
[2018-07-27 15:32] LABS: HEMATOCRIT 33.8 % (32.4-45.2); HEMOGLOBIN 12.1 GM/dL (10.7-15.3); MCH 32.7 pg (25.7-33.7); MCHC 35.8 g/dl (32.0-36.0); MEAN CELL VOLUME 91.5 fl (80-96); MEAN PLT VOLUME 8.8 fl (7.5-11.1); PLATELET COUNT 192 K/MM3 (134-434); RBC 3.69 M/mm3 (3.60-5.2); RDW 16.9 % (11.6-15.6); WHITE BLOOD COUNT 6.9 K/mm3 (4.0-10.0)
--- NOTE | 2018-07-27 16:45 | DS ---
Physical Exam: SUBJECTIVE: Patient seen and examined - no more BMs overnight. No abdominal pain/ hematochezia/melena/hematemesis. No chest pain/palpitations/SOB OBJECTIVE: Afebrile, Hemodynamically stable. Vital Signs Period Temp Pulse Resp BP Sys/Vila Pulse Ox Last 24 Hr 97.8 F-98.0 F 75-113 15-22 91-176/60-112 96-96 HEENT- Atraumatic, Normocephalic. Heart - S1, S2, RRR Lungs - clear to auscultation - no crackles/wheeze. Abdomen- soft, non-tender. Bowel Sounds normal. Extremities - no edema. No calf tenderness. Laboratory Tests 07/22/18 07/22/18 07/22/18 23:00 23:00 23:00 WBC 7.5 Corrected WBC (auto) RBC 4.72 Hgb 14.9 Hct 46.1 H MCV 97.5 H MCH 31.5 MCHC 32.3 RDW 12.6 Plt Count 282 MPV 8.0 Absolute Neuts (auto) 5.0 Total Counted Neutrophils % 66.6 Neutrophils % (Manual) Lymphocytes % 24.3 Lymphocytes % (Manual) Monocytes % 7.5 Monocytes % (Manual) Eosinophils % 1.0 Eosinophils % (Manual) Basophils % 0.6 Nucleated RBC % Metamyelocytes Platelet Estimate Platelet Comment PT with INR 10.4 INR 0.93 L Sodium 135 L Potassium 4.4 Chloride 99 Carbon Dioxide 28 Anion Gap 8 BUN 18 Creatinine 0.8 Creat Clearance w eGFR > 60 Random Glucose 124 H Lactic Acid Calcium 9.8 Phosphorus Magnesium Total Bilirubin 0.7 AST 31 ALT 22 Alkaline Phosphatase 106 H Creatine Kinase 213 H Creatine Kinase Index 1.5 CK-MB (CK-2) 3.4 Troponin I Total Protein 7.5 Albumin 4.7 Urine Color Urine Appearance Urine pH Ur Specific [place] Urine Protein Urine Glucose (UA) Urine Ketones Urine Blood Urine Nitrite Urine Bilirubin Urine Urobilinogen Ur Leukocyte Esterase Stool Occult Blood Blood Type Antibody Screen Crossmatch 07/22/18 07/22/18 07/23/18 23:00 23:05 00:05 WBC Corrected WBC (auto) RBC Hgb Hct MCV MCH MCHC RDW Plt Count MPV Absolute Neuts (auto) Total Counted Neutrophils % Neutrophils % (Manual) Lymphocytes % Lymphocytes % (Manual) Monocytes % Monocytes % (Manual) Eosinophils % Eosinophils % (Manual) Basophils % Nucleated RBC % Metamyelocytes Platelet Estimate Platelet Comment PT with INR INR Sodium Potassium Chloride Carbon Dioxide Anion Gap BUN Creatinine Creat Clearance w eGFR Random Glucose Lactic Acid Calcium Phosphorus Magnesium Total Bilirubin AST ALT Alkaline Phosphatase Creatine Kinase Creatine Kinase Index CK-MB (CK-2) Troponin I < 0.03 Total Protein Albumin Urine Color Straw Urine Appearance Clear Urine pH 7.0 Ur Specific [place] 1.005 L Urine Protein Negative Urine Glucose (UA) Negative Urine Ketones Negative Urine Blood Negative Urine Nitrite Negative Urine Bilirubin Negative Urine Urobilinogen Negative Ur Leukocyte Esterase Negative Stool Occult Blood Blood Type B POSITIVE Antibody Screen Negative Crossmatch See Detail 07/23/18 07/23/18 07/23/18 07:00 07:00 11:05 WBC 6.1 5.5 Corrected WBC (auto) RBC 4.45 3.98 Hgb 14.1 13.0 Hct 42.9 38.5 MCV 96.5 H 96.5 H MCH 31.8 32.7 MCHC 32.9 33.9 RDW 12.3 12.3 Plt Count 244 231 MPV 8.5 7.7 Absolute Neuts (auto) Total Counted Neutrophils % Neutrophils % (Manual) Lymphocytes % Lymphocytes % (Manual) Monocytes % Monocytes % (Manual) Eosinophils % Eosinophils % (Manual) Basophils % Nucleated RBC % Metamyelocytes Platelet Estimate Platelet Comment PT with INR INR Sodium 135 L Potassium 3.7 Chloride 99 Carbon Dioxide 28 Anion Gap 8 BUN 14 Creatinine 0.8 Creat Clearance w eGFR > 60 Random Glucose 108 H Lactic Acid Calcium 9.5 Phosphorus Magnesium Total Bilirubin AST ALT Alkaline Phosphatase Creatine Kinase Creatine Kinase Index CK-MB (CK-2) Troponin I Total Protein Albumin Urine Color Urine Appearance Urine pH Ur Specific [place] Urine Protein Urine Glucose (UA) Urine Ketones Urine Blood Urine Nitrite Urine Bilirubin Urine Urobilinogen Ur Leukocyte Esterase Stool Occult Blood Blood Type Antibody Screen Crossmatch 07/23/18 07/23/18 07/23/18 12:01 16:05 17:00 WBC 4.5 Corrected WBC (auto) RBC 4.39 Hgb 13.9 Hct 40.1 MCV 91.4 MCH 31.7 MCHC 34.7 RDW 18.0 H Plt Count 202 MPV 8.2 Absolute Neuts (auto) Total Counted Neutrophils % Neutrophils % (Manual) Lymphocytes % Lymphocytes % (Manual) Monocytes % Monocytes % (Manual) Eosinophils % Eosinophils % (Manual) Basophils % Nucleated RBC % Metamyelocytes Platelet Estimate Platelet Comment PT with INR INR Sodium Potassium Chloride Carbon Dioxide Anion Gap BUN Creatinine Creat Clearance w eGFR Random Glucose Lactic Acid 1.0 Calcium Phosphorus Magnesium Total Bilirubin AST ALT Alkaline Phosphatase Creatine Kinase Creatine Kinase Index CK-MB (CK-2) Troponin I Total Protein Albumin Urine Color Urine Appearance Urine pH Ur Specific [place] Urine Protein Urine Glucose (UA) Urine Ketones Urine Blood Urine Nitrite Urine Bilirubin Urine Urobilinogen Ur Leukocyte Esterase Stool Occult Blood Positive Blood Type Antibody Screen Crossmatch 07/23/18 07/23/18 07/24/18 23:00 23:00 05:30 WBC Cancelled 4.8 Corrected WBC (auto) Cancelled RBC Cancelled 4.32 Hgb Cancelled 13.9 Hct Cancelled 39.7 MCV Cancelled 91.8 MCH Cancelled 32.1 MCHC Cancelled 35.0 RDW Cancelled 18.5 H Plt Count Cancelled 193 MPV Cancelled 8.9 Absolute Neuts (auto) Cancelled Total Counted 100 Neutrophils % Cancelled Neutrophils % (Manual) 52.0 Lymphocytes % Cancelled Lymphocytes % (Manual) 31.0 Monocytes % Cancelled Monocytes % (Manual) 11 H Eosinophils % Cancelled Eosinophils % (Manual) 2.0 Basophils % Cancelled Nucleated RBC % Cancelled 1 H Metamyelocytes 1 Platelet Estimate Cancelled Adequate Platelet Comment Cancelled Rare giant plts PT with INR INR Sodium 142 Potassium 3.8 Chloride 108 H Carbon Dioxide 24 Anion Gap 11 BUN 10 Creatinine 0.7 Creat Clearance w eGFR > 60 Random Glucose 65 L Lactic Acid Calcium 8.3 L Phosphorus 3.9 Magnesium 2.2 Total Bilirubin 1.0 AST 22 ALT 20 Alkaline Phosphatase 80 Creatine Kinase Creatine Kinase Index CK-MB (CK-2) Troponin I Total Protein 5.6 L Albumin 3.2 L Urine Color Urine Appearance Urine pH Ur Specific [place] Urine Protein Urine Glucose (UA) Urine Ketones Urine Blood Urine Nitrite Urine Bilirubin Urine Urobilinogen Ur Leukocyte Esterase Stool Occult Blood Blood Type Antibody Screen Crossmatch 07/24/18 07/25/18 07/25/18 05:30 05:30 05:30 WBC 4.6 5.7 Corrected WBC (auto) RBC 4.41 3.91 Hgb 13.2 11.9 Hct 41.0 36.1 MCV 93.1 92.2 MCH 30.1 30.5 MCHC 32.3 33.0 RDW 18.9 H 18.0 H Plt Count 173 169 MPV 8.5 8.4 Absolute Neuts (auto) 2.7 3.8 Total Counted Neutrophils % 59.0 66.5 Neutrophils % (Manual) Lymphocytes % 28.4 22.3 D Lymphocytes % (Manual) Monocytes % 10.2 9.3 Monocytes % (Manual) Eosinophils % 1.7 1.3 Eosinophils % (Manual) Basophils % 0.7 0.6 Nucleated RBC % 0 0 Metamyelocytes Platelet Estimate Platelet Comment PT with INR INR Sodium 139 Potassium 3.7 Chloride 106 Carbon Dioxide 24 Anion Gap 10 BUN 12 Creatinine 0.7 Creat Clearance w eGFR > 60 Random Glucose 83 Lactic Acid Calcium 7.8 L Phosphorus Magnesium Total Bilirubin 0.7 AST 23 ALT 21 Alkaline Phosphatase 77 Creatine Kinase Creatine Kinase Index CK-MB (CK-2) Troponin I Total Protein 5.3 L Albumin 3.0 L Urine Color Urine Appearance Urine pH Ur Specific [place] Urine Protein Urine Glucose (UA) Urine Ketones Urine Blood Urine Nitrite Urine Bilirubin Urine Urobilinogen Ur Leukocyte Esterase Stool Occult Blood Blood Type Antibody Screen Crossmatch 07/25/18 07/26/18 07/26/18 12:08 05:15 05:15 WBC 5.3 5.7 Corrected WBC (auto) RBC 3.80 4.06 Hgb 12.4 12.4 Hct 34.7 37.4 MCV 91.4 92.2 MCH 32.6 30.6 MCHC 35.7 33.1 RDW 17.5 H 17.2 H Plt Count 186 181 MPV 8.5 8.5 Absolute Neuts (auto) Total Counted Neutrophils % Neutrophils % (Manual) Lymphocytes % Lymphocytes % (Manual) Monocytes % Monocytes % (Manual) Eosinophils % Eosinophils % (Manual) Basophils % Nucleated RBC % Metamyelocytes Platelet Estimate Platelet Comment PT with INR INR Sodium 141 Potassium 3.7 Chloride 106 Carbon Dioxide 30 Anion Gap 5 L BUN 7 Creatinine 0.8 Creat Clearance w eGFR > 60 Random Glucose 99 Lactic Acid Calcium 8.3 L Phosphorus 3.2 Magnesium 2.2 Total Bilirubin 0.8 AST 29 ALT 25 Alkaline Phosphatase 89 Creatine Kinase Creatine Kinase Index CK-MB (CK-2) Troponin I Total Protein 6.2 L Albumin 3.6 Urine Color Urine Appearance Urine pH Ur Specific [place] Urine Protein Urine Glucose (UA) Urine Ketones Urine Blood Urine Nitrite Urine Bilirubin Urine Urobilinogen Ur Leukocyte Esterase Stool Occult Blood Blood Type Antibody Screen Crossmatch 07/27/18 07/27/18 07/27/18 05:35 05:35 14:15 WBC 4.1 6.9 Corrected WBC (auto) RBC 3.63 3.69 Hgb 11.2 12.1 Hct 33.1 33.8 MCV 91.3 91.5 MCH 30.9 32.7 MCHC 33.8 35.8 RDW 17.0 H 16.9 H Plt Count 167 192 MPV 8.8 8.8 Absolute Neuts (auto) 2.4 Total Counted Neutrophils % 57.9 Neutrophils % (Manual) Lymphocytes % 26.8 D Lymphocytes % (Manual) Monocytes % 11.8 H Monocytes % (Manual) Eosinophils % 2.9 D Eosinophils % (Manual) Basophils % 0.6 Nucleated RBC % 0 Metamyelocytes Platelet Estimate Platelet Comment PT with INR INR Sodium 142 Potassium 3.4 L Chloride 104 Carbon Dioxide 30 Anion Gap 8 BUN 5 L Creatinine 0.6 Creat Clearance w eGFR > 60 Random Glucose 90 Lactic Acid Calcium 8.3 L Phosphorus 3.3 Magnesium 2.2 Total Bilirubin 0.6 AST 24 ALT 23 Alkaline Phosphatase 79 Creatine Kinase Creatine Kinase Index CK-MB (CK-2) Troponin I Total Protein 5.4 L Albumin 3.1 L Urine Color Urine Appearance Urine pH Ur Specific [place] Urine Protein Urine Glucose (UA) Urine Ketones Urine Blood Urine Nitrite Urine Bilirubin Urine Urobilinogen Ur Leukocyte Esterase Stool Occult Blood Blood Type Antibody Screen Crossmatch Date of Admission:07/23/18 Date of Discharge: 07/27/18 Minutes to complete discharge: 45 Discharge Summary Reason For Visit: LOWER GI BLEED Current Active Problems Diverticulosis large intestine w/o perforation or abscess w/bleeding (Acute) Lower GI bleed (Acute) Procedures: Principal: Colonocoscopy Hospital Course: 87 year-old female with a history of COPD, HLD, 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 She underwent Colonoscopy 07/24 which showed Diverticulosis with polyp which was resected. She had some episodes of bloody bowel movements after the procedure but has remained hemodynamically stable with no drop in H/H. She has had no further bloody BMs for over 24 hours and is medically stable for discharge with GI follow up for Diverticulosis and for pathology result of Polypectomy. 1. Acute Blood Loss sec to Lower GI bleed, likely due to Diverticular Hemorrhage H/H relatively stable - . s/p Colonoscopy 07/24 which showed Diverticulosis, polyp s/p polypectomy. Hemodynamically Stable. Tolerating oral diet. Further recommendations as per GI Dr. Yang, with whom she will follow on discharge. 2. COPD - Stable Continue Symbicort 3. HLD - Continue Crestor. Medically and Hemodynamically stable for discharge home. Condition: Stable - Instructions Diet, Activity, Other Instructions: Regular consistency, sodium restricted diet Please seek medical attention if any further bloody bowel movements. Referrals: Dallin Yang MD [Staff Physician] - 1 Week Cat Huang MD [Staff Physician] - 1 Week Disposition: HOME - Home Medications Comprehensive Discharge Medication List: Ambulatory Orders Albuterol Sulfate Inhaler - [Ventolin HFA Inhaler -] 1 - 2 inh PO Q4H PRN Budesonide/Formeterol Fumarate [SYMBICORT 80/4.5mcg -] 1 inh PO BID PRN Rosuvastatin Calcium [Crestor] 0 mg PO DAILY 07/22/18 Problem List - Problems (1) Lower GI bleed Code(s): K92.2 - GASTROINTESTINAL HEMORRHAGE, UNSPECIFIED This patient is new to me today: No Emergency Visit: Yes ED Registration Date: 07/23/18 Care time: The patient presented to the Emergency Department on the above date and was hospitalized for further evaluation of their emergent condition. Critical Care patient: No - Discharge Referral Referred to [facility] Med P.C.: No
[2018-07-27 16:58] VITALS: BP 114/87; PULSE 95; TEMP 98.2
--- NOTE | 2018-07-29 17:30 | PATH ---
Surgical Pathology Report Patient Name: CHRISTIAN [facility]. Rec. #: [id number] /Age/Gender: 1930 (Age: 87) / F Account: [id number] Location: ICU TRUST ADMINISTRATOR Taken: 07/24/2018 Received: 07/27/2018 Reported: 07/29/2018 Physicians: Hernesto Gandhi ACNP Specimen(s) Received POLYP DISTAL SIGMOID Clinical History GI bleeding Postoperative diagnosis: Diverticulosis, colon polyp Final Diagnosis DISTAL SIGMOID, POLYP, POLYPECTOMY: TUBULAR ADENOMA. Electronically Signed Magdalena Pinedo M.D. Gross Description Received in formalin, labeled "polyp from distal sigmoid" is a lea, irregular portion of soft tissue measuring 0.5 cm. in greatest dimension. Base of the polyp is inked in blue. The specimen is bisected and entirely submitted in one cassette. MLSZ/07/27/2018 [email or web address]/07/27/2018
== END 2018-07-27 18:30 | disposition home or self-care (01) | DRG 378 ==
LOC: FER 22:26 → FM/S 07-23 00:34 → UNDOADMIN 07-23 01:01 → JICU 07-23 14:55
PROVIDERS: ADMIT Internal Medicine
PROC: 30233N1 Transfusion of Nonautologous Red Blood Cells into Peripheral Vein, Percutaneous Approach (ICD-10-PCS; 2018-07-23)
PROC: 0DBN8ZZ Excision of Sigmoid Colon, Via Natural or Artificial Opening Endoscopic (ICD-10-PCS; principal; 2018-07-24 13:00)
DX: K57.31 Diverticulosis of large intestine without perforation or abscess with bleeding (principal); D62 Acute posthemorrhagic anemia; J44.9 Chronic obstructive pulmonary disease, unspecified; C67.9 Malignant neoplasm of bladder, unspecified; R00.0 Tachycardia, unspecified; L89.152 Pressure ulcer of sacral region, stage 2; D12.5 Benign neoplasm of sigmoid colon; E78.5 Hyperlipidemia, unspecified; H26.9 Unspecified cataract
CPT/HCPCS: 36415; 36430; 36511; 71046-TC-FY; 80048; 80053; 81003; 82272; 82550; 82553; 83605; 83735; 84100; 84484; 85025; 85027; 85610; 86850; 86900; 86901; 86922; 88305-TC; 93005; 99285-25; J7030; P9038; P9058

== ENCOUNTER 2018-10-06 08:30 | Day surgery (SDC) | payer OTHER ==
[2018-09-22 10:55] VITALS: BMI 18.5
[~2018-10-06 08:30] MED LIST: TROPICAMIDE 1% OPHTH SOLN 15 ML BOTTLE OS SCH
[2018-10-06] MEDS ORDERED: PHENYLEPHRINE 2.5% OPHTH SOLN 15 ML BOTTLE ONE (08:46)
[2018-10-06] MEDS ORDERED: CYCLOPENTOLATE HCL 1% OPHTH SOLN 2 ML BOTTLE ONE (08:46)
[2018-10-06] MEDS ORDERED: GENTAMICIN SULFATE 0.3% OPHTHALMIC (EYE DROPS) 5ML BOTTLE ONE (08:46)
[2018-10-06] MEDS: GENTAMICIN SULFATE 0.3% OPHTHALMIC (EYE DROPS) 5ML BOTTLE OS SCH ×5 (09:15→09:35)
[2018-10-06] MEDS: TROPICAMIDE 1% OPHTH SOLN 15 ML BOTTLE ONE ×4 (09:15→09:30)
[2018-10-06] MEDS: CYCLOPENTOLATE HCL 1% OPHTH SOLN 2 ML BOTTLE OS SCH ×5 (09:15→09:35)
[2018-10-06] MEDS: KETOROLAC TROMETHAMINE 0.5% EYE DROP 1 DROP DROPS OS SCH ×5 (09:15→09:35)
[2018-10-06] MEDS: PHENYLEPHRINE 2.5% OPHTH SOLN 15 ML BOTTLE OS SCH ×5 (09:15→09:35)
[2018-10-06] MEDS ORDERED: EPI-SHUGARCAINE (EPINEPHRINE 0.025% & LIDOCAINE-PF 0.75%) 4ML ONE ×2 (11:02→11:28)
[2018-10-06] MEDS ORDERED: POVIDONE-IODINE 5% OPHTHALMIC PREP 30 ML SOLUTION ONE (11:02)
[2018-10-06] MEDS ORDERED: ACETYLCHOLINE 1:100 INTRA-OCUL 20 MG/2 ML KIT ONE (11:02)
[2018-10-06] MEDS ORDERED: BSS (NA/CA/MG/K) BALANCED SALT SOLUTION OPHTH SOLN 15 ML BOTTLE ONE (11:04)
[2018-10-06] MEDS ORDERED: MIDAZOLAM HCL 2 MG/2 ML SINGLE DOSE VIAL ONE (11:24)
[2018-10-06] MEDS ORDERED: ACETAMINOPHEN 325 MG TABLET (FP) PO PRN (12:21)
[2018-10-06 12:39] VITALS: TEMP 97.8
--- NOTE | 2018-10-06 13:08 | OP ---
DATE OF OPERATION: 10/06/2018 PREOPERATIVE DIAGNOSIS: Cataract, left eye. POSTOPERATIVE DIAGNOSIS: Cataract, left eye. PROCEDURE: Cataract extraction via phacoemulsification with insertion of posterior chamber lens implant, left eye. SURGEON: Mikey Goodson MD COMMUNITY AFFAIRS MANAGER: Preeti Martinez MD ANESTHESIA: Topical with sedation. ESTIMATED BLOOD LOSS: Less than 1 mL. COMPLICATIONS: None. SPECIMENS: None. PROCEDURE: The patient was identified in the holding area. After all risks, benefits, and alternatives were explained to the patient, informed consent was obtained. The left eye was marked with a marking pen. The patient then entered the operating room on an eye stretcher. After a formal timeout was performed, topical tetracaine eye drops were instilled onto the left eye. The left eye was then prepped and draped in the usual sterile fashion. An eyelid speculum was placed beneath the eyelids of the left eye. An infratemporal paracentesis incision was created using a 15-degree blade. Topical preservative-free epinephrine and preservative-free lidocaine was then injected into the anterior chamber. Viscoelastic was injected into the anterior chamber. A 2.4-mm keratome blade was then used to make a superotemporal incision. A 360-degree continuous curvilinear capsulorhexis was then created using bent cystotome and Utrata forceps. Hydrodissection was performed using balanced saline solution on a cannula. Phacoemulsification was introduced to disassemble and remove the nucleus in its entirety. Irrigation/aspiration was then used to remove any remaining cortical material from the eye. The capsular bag was reformed using viscoelastic. An Luis model [id number] with a power of 18.5 diopters, serial number [id number] was inspected and found to be defect-free and injected into the capsular bag. Irrigation/aspiration was then used to remove any remaining viscoelastic from the eye. The anterior chamber was reformed using balanced saline solution. Intracameral injections of Miochol and Miostat were then administered, and the pupil came down and was round. All wounds were hydrated with balanced saline solution and noted to be watertight. The anterior chamber was deep. The lens was perfectly centered in capsule bag. The eye had an adequate pressure, and there was a red reflex present. Topical antibiotic eye drops and ointment were then administered to the left eye. The eyelid speculum was removed from the left eye. The left eye was then shielded. The patient tolerated the procedure well and left the operating room in stable condition to follow up in the eye clinic tomorrow morning at 10:00. MIKEY GOODSON M.D. [id number]
[2018-10-06 13:35] VITALS: BP 150/95; PULSE 98
== END 2018-10-06 13:37 | disposition home or self-care (01) ==
LOC: FASU 08:30
PROVIDERS: ATTEND Ophthalmology
PROC: 08RK3JZ Replacement of Left Lens with Synthetic Substitute, Percutaneous Approach (ICD-10-PCS; principal; 2018-10-06 11:41)
DX: H26.9 Unspecified cataract (principal)

== ENCOUNTER 2019-06-23 00:05 | Inpatient (IN) | payer OTHER ==
--- NOTE | 2019-06-23 00:50 | PDOC ---
History of Present Illness - General Stated Complaint: CARDIAC ARREST Time Seen by Provider: 06/23/19 00:48 - History of Present Illness Initial Comments: 06/23/19 01:24 This 88-year-old woman with a history of asthma/COPD, HTN, HLD, diverticular disease was carried into the ER apneic and pulseless by her grandson: She had severe shortness of breath and wheezing at home this evening. Patient lost consciousness just prior to being transported by her grandson to the ER ( approximately 10 minutes away). Full cardiopulmonary resuscitation begun when patient arrived in the ER. According to the grandson, patient had exacerbation of her COPD for the last several days (cough, recurrent wheezing). She had apparently run out of some of her medications. She was seen by her PMD (Dr. Lee) yesterday and restarted on all her medications. Past History - Past Medical History Allergies/Adverse Reactions: Allergies Allergy/AdvReac Type Severity Reaction Status Date / Time lactase [From Dairy Aid] Allergy Verified 06/23/19 00:58 No Known Drug Allergies Allergy Verified 06/23/19 00:58 Home Medications: Ambulatory Orders Albuterol Sulfate Inhaler - [Ventolin HFA Inhaler -] 1 - 2 inh PO Q4H PRN Budesonide/Formeterol Fumarate [SYMBICORT 80/4.5mcg -] 1 inh PO BID PRN Rosuvastatin Calcium [Crestor] 0 mg PO DAILY 07/22/18 Amlodipine Besylate [Norvasc -] 5 mg PO DAILY 09/22/18 Anemia: No Asthma: Yes Cancer: Yes (bladder) Cardiac Disorders: No CVA: No COPD: Yes CHF: No Dementia: No Diabetes: No GI Disorders: No Disorders: No HTN: Yes Hypercholesterolemia: Yes Liver Disease: No Seizures: No Thyroid Disease: No - Surgical History Abdominal Surgery: Yes (Desmoid resection) Appendectomy: No Cardiac Surgery: No Cholecystectomy: No Lung Surgery: No Neurologic Surgery: No Orthopedic Surgery: No - Psycho Social/Smoking Cessation Hx Smoking History: Former smoker Have you smoked in the past 12 months: No If you are a former smoker, when did you quit?: at age 49 Hx Alcohol Use: No Drug/Substance Use Hx: No Substance Use Type: None Hx Substance Use Treatment: No Cardiac Specific PMH - Complaint Specific PMHX Pacemaker: No Review of Systems - Review of Systems Able to Perform ROS?: No (Unconscious patient) *Physical Exam - Vital Signs Last Vital Signs Temp Pulse Resp BP Pulse Ox 95.8 F L 82 14 132/100 100 06/23/19 03:35 06/23/19 03:35 06/23/19 04:30 06/23/19 03:35 06/23/19 03:35 - Physical Exam Comments: GENERAL: Elderly female, pulseless and apneic; unresponsive to deep pain Procedures - Central Line Central Line Lumen: triple Progress: 06/23/19 03:33 Area of the right proximal thigh prepped using Hibiclens; using sterile technique, femoral artery palpated and venipuncture achieved medial to this with good backflow. Guidewire could not be advanced. Multiple attempts at femoral vein puncture on right side were unsuccessful. Likewise, left proximal thigh prepped using Betadine and femoral artery palpated. Multiple attempts at femoral vein puncture were unsuccessful. No arterial puncture occurred during any of the attempts for venipuncture. No obvious hematoma present at site. ED Treatment Course - LABORATORY CBC & Chemistry Diagram: 06/23/19 01:15 06/23/19 01:15 - ADDITIONAL ORDERS Additional order review: Laboratory Results 06/23/19 06/23/19 06/23/19 01:30 01:15 01:15 Anticoagulation Therapy No Result Required. Puncture Site No Result Required. ABG pH 7.07 L* ABG pCO2 at Pt Temp 50.5 H ABG pO2 at Pt Temp 255 H ABG HCO3 13.9 L ABG O2 Sat (Measured) 98.6 H ABG O2 Content 19.1 ABG Base Excess -16.5 L Giovani Test No Result Required. O2 Delivery Device No Result Required. Oxygen Flow Rate No Result Required. Vent Mode No Result Required. Vent Rate No Result Required. Mechanical Rate No Result Required. Pressure Support Vent No Result Required. Sodium Potassium Chloride Carbon Dioxide Anion Gap BUN Creatinine Est GFR (CKD-EPI)AfAm Est GFR (CKD-EPI)NonAf Random Glucose Lactic Acid 10.2 H* Calcium Total Bilirubin AST ALT Alkaline Phosphatase Creatine Kinase Troponin I Total Protein Albumin Urine Color Yellow Urine Appearance Clear Urine pH 7.0 Ur Specific [place] 1.015 Urine Protein 2+ H Urine Glucose (UA) Negative Urine Ketones Negative Urine Blood Negative Urine Nitrite Negative Urine Bilirubin Negative Urine Urobilinogen 1.0 Ur Leukocyte Esterase Negative Urine WBC (Auto) 1 Urine RBC (Auto) 1 Urine Casts (Auto) 5 U Epithel Cells (Auto) 1.4 Urine Bacteria (Auto) 3.8 06/23/19 01:15 Anticoagulation Therapy Puncture Site ABG pH ABG pCO2 at Pt Temp ABG pO2 at Pt Temp ABG HCO3 ABG O2 Sat (Measured) ABG O2 Content ABG Base Excess Giovani Test O2 Delivery Device Oxygen Flow Rate Vent Mode Vent Rate Mechanical Rate Pressure Support Vent Sodium 138 Potassium 4.6 Chloride 104 Carbon Dioxide 20 L Anion Gap 14 BUN 16.3 Creatinine 1.0 Est GFR (CKD-EPI)AfAm 57.84 Est GFR (CKD-EPI)NonAf 49.91 Random Glucose 110 H Lactic Acid Calcium 8.3 L Total Bilirubin 0.8 AST 23 ALT 20 Alkaline Phosphatase 110 Creatine Kinase 134 Troponin I < 0.02 Total Protein 5.9 L Albumin 3.1 L Urine Color Urine Appearance Urine pH Ur Specific [place] Urine Protein Urine Glucose (UA) Urine Ketones Urine Blood Urine Nitrite Urine Bilirubin Urine Urobilinogen Ur Leukocyte Esterase Urine WBC (Auto) Urine RBC (Auto) Urine Casts (Auto) U Epithel Cells (Auto) Urine Bacteria (Auto) 06/23/19 01:15 RBC 4.30 MCV 101.8 H MCHC 31.6 L RDW 13.9 D MPV 9.5 Neutrophils % 31.3 L D Lymphocytes % 60.9 H D Monocytes % 6.1 Eosinophils % 1.1 Basophils % 0.6 - RADIOLOGY Radiology Studies Ordered: Category Date Time Status CHEST X-RAY PORTABLE* [RAD] Stat Radiology 06/23/19 01:20 Taken Medical Decision Making - Critical Care Time Total Critical Care Time (minutes): 45 Critical Care Statement: The care of this patient involved high complexity decision making to prevent further life threatening deterioration of the patient 's condition and/or to evaluate & treat vital organ system(s) failure or risk of failure. - Medical Decision Making 06/23/19 01:43 88-year-old woman with a history of COPD/hypertension with recent respiratory illness arrived in full cardiopulmonary arrest. CPR begun immediately. Monitor revealed cardiac rhythm without palpable pulse. Patient is apneic and was intubated orally: #7 ET tube ( 24 cm at the lips), faint breath sounds heard bilaterally and carbon dioxide monitor indicated proper placement. Patient received 3 doses of 5 mg epinephrine IV over approximately 15 minutes. Rectal temperature 99.6 F CPR continued for PEA until faint pulse was detected ( after approximately 20 minutes). Patient was initially hypotensive (systolic 4050s); IV hydration with normal saline instituted using 2 IV lines. Oxygenation was initially poor (pulse ox 70 to 80%) but gradually ajay into the 90s with blood pressure responding also. Rhythm was NSR CBC/chemistry profile/troponin/Lactic acid sent ABG sent. Case discussed with [place] [facility] (ARIANA Thomas) and patient admitted to Dr. Lemon service. Case also discussed with [facility] ICU resident staff Twelve-lead electrocardiogram shows normal sinus rhythm 97 bpm; there is right axis and partial RBBB. Prolonged QT is seen with QTC at 553 ms. Nonspecific T wave pattern observed without acute ST abnormalities Portable chest x-ray reveals ET tube in good position; COPD pattern with flattening of diaphragms; no infiltrates/pneumothorax/effusion/masses Postarrest hypothermia protocol started. Attempt at placement of femoral central line unsuccessful as noted above Dr Ferrer informed 06/23/19 03:43 Vital signs: 95.8 F rectal temperature; heart rate 85/min, blood pressure 132/ 107 , pulse oximetry 97 06/23/19 03:56 Patient transported via ALS to ICU Discharge - Discharge Information Problems reviewed: (No) Clinical Impression/Diagnosis: Cardiac arrest Condition: Critical - Admission Yes - Follow up/Referral - Patient Discharge Instructions - Post Discharge Activity
[2019-06-23 02:17] LABS: ARTERIAL BLD GAS O2 SATURATION 98.6 % (95-98); ARTERIAL BLOOD GAS BASE EXCESS -16.5 meq/l (-2-2); ARTERIAL BLOOD GAS PCO2 50.5 mmHg (35-45); ARTERIAL BLOOD GAS PO2 255 mmHg (80-100)
[2019-06-23 02:20] LABS: ARTERIAL BLOOD GAS pH 7.07 (7.35-7.45)
[2019-06-23 02:23] LABS: BASO % 0.6 % (0-2.0); EOS % 1.1 % (0-4.5); HEMATOCRIT 43.7 % (32.4-45.2); HEMOGLOBIN 13.8 GM/dL (10.7-15.3); LYMPH % 60.9 % (8-40); MCH 32.2 pg (25.7-33.7); MCHC 31.6 g/dl (32.0-36.0); MEAN CELL VOLUME 101.8 fl (80-96); MEAN PLT VOLUME 9.5 fl (7.5-11.1); MONO % 6.1 % (3.8-10.2); NEUT % 31.3 % (42.8-82.8); PLATELET COUNT 232 K/MM3 (134-434); RDW 13.9 % (11.6-15.6); WHITE BLOOD COUNT 9.1 K/mm3 (4.0-10.0)
[2019-06-23 02:24] LABS: EPI CELLS 1.4 /HPF (0-5/HPF); HYALINE CASTS 5 /lpf (0-8); URINE APPEARANCE CLEAR; URINE BACTERIA 3.8 /hpf (NEGATIVE); URINE BILIRUBIN NEGATIVE (NEGATIVE); URINE COLOR YELLOW; URINE GLUCOSE (UA) NEGATIVE (NEGATIVE); URINE KETONE NEGATIVE (NEGATIVE); URINE LEUK ESTERASE NEGATIVE (NEGATIVE); URINE NITRITE NEGATIVE (NEGATIVE); URINE PROTEIN 2+ (NEGATIVE); URINE RBC 1 /hpf (0-4); URINE WBC 1 /hpf (0-5)
[2019-06-23 02:51] LABS: ALBUMIN 3.1 g/dl (3.4-5.0); ALK PHOS 110 U/L (45-117); ANION GAP 14 MMOL/L (8-16); BILIRUBIN,TOTAL 0.8 mg/dL (0.2-1); BLOOD UREA NITROGEN 16.3 mg/dL (7-18); CALCIUM 8.3 mg/dL (8.5-10.1); CHLORIDE 104 mmol/L (98-107); CO2 20 mmol/L (21-32); GLUCOSE,RANDOM 110 mg/dL (74-106); POTASSIUM 4.6 mmol/L (3.5-5.1); SGOT/AST 23 U/L (15-37); SGPT/ALT 20 U/L (13-61); SODIUM 138 mmol/L (136-145); TOT PROT 5.9 g/dl (6.4-8.2)
[2019-06-23] MEDS ORDERED: SODIUM CHLORIDE 0.9% 1000 ML INFUS.BAG IV ONE ×2 (04:45→05:00)
[2019-06-23] MEDS ORDERED: INSULIN SLIDING SCALE (NOVOLOG) 1 VIAL SQ SCH (04:45)
[2019-06-23 04:46] LABS: ANISOCYTOSIS 0; HELMET CELLS 0; HOWELL-JOLLY BODIES 0; MACROCYTOSIS 0; OVALOCYTE 0; PLATELET ESTIMATE NORMAL; ROULEAU 0; SICKELED CELLS 0; TARGET CELLS 0; TEAR DROP CELLS 0; TOXIC GRANULATION 0
[2019-06-23] MEDS ORDERED: FENTANYL INJECTION 500 MCG in DEXTROSE 5%-WATER - 90 ML IVPB SCH (05:00)
[2019-06-23] MEDS ORDERED: VANCOMYCIN 1 GM in D5W (PRE-DOCKED) 1,000 MG/250 ML IVPB ONE (05:04)
[2019-06-23] MEDS ORDERED: ALBUTEROL SO4 0.083% IH SOL 2.5 MG/3 ML VIAL.NEB. NEB PRN (05:06)
[2019-06-23 05:24] LABS: ARTERIAL BLD GAS O2 SATURATION 98.5 % (95-98); ARTERIAL BLOOD GAS BASE EXCESS -7.5 meq/l (-2-2); ARTERIAL BLOOD GAS PCO2 39.7 mmHg (35-45); ARTERIAL BLOOD GAS PO2 157 mmHg (80-100); ARTERIAL BLOOD GAS pH 7.29 (7.35-7.45); CARBOXYHEMOGLOBIN < 0.5 % (0-2)
--- NOTE | 2019-06-23 05:27 | HP ---
Admitting History and Physical - Primary Care Physician PCP: Dr. 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 Patient lost consciousness just prior to being transported by her grandson to the ER (approximately 10 minutes away). Full cardiopulmonary resuscitation begun when patient arrived in the ER. According to the grandson, patient had exacerbation of her COPD for the last several days (cough, recurrent wheezing). She had apparently run out of some of her medications. She was seen by her PMD (Dr. Lee) yesterday and restarted on all her medications. History Source: Medical Record, Transfer Record Limitations to Obtaining History: Intubated - Past Medical History Cardiovascular: Yes: HTN, Hyperlipdemia Pulmonary: Yes: Asthma, COPD Gastrointestinal: Yes: Diverticulitis Heme/Onc: Yes: Cancer (bladder ca) - Past Surgical History Additional Past Surgical History: Desmoid resection - Smoking History Smoking history: Former smoker Have you smoked in the past 12 months: No If you are a former smoker, when did you quit?: at age 49 - Alcohol/Substance Use Hx Alcohol Use: No History of Substance Use: reports: None - Social History ADL: Independent History of Recent Travel: No Home Medications - Allergies Allergies/Adverse Reactions: Allergies Allergy/AdvReac Type Severity Reaction Status Date / Time lactase [From Dairy Aid] Allergy Verified 06/23/19 00:58 No Known Drug Allergies Allergy Verified 06/23/19 00:58 - Home Medications Home Medications: Ambulatory Orders Albuterol Sulfate Inhaler - [Ventolin HFA Inhaler -] 1 - 2 inh PO Q4H PRN Budesonide/Formeterol Fumarate [SYMBICORT 80/4.5mcg -] 1 inh PO BID PRN Rosuvastatin Calcium [Crestor] 0 mg PO DAILY 07/22/18 Amlodipine Besylate [Norvasc -] 5 mg PO DAILY 09/22/18 Family Medical History Family History: Unable to Obtain (Intubated ) Review of Systems Unable to obtain ROS, reason: Intubated Physical Examination Vital Signs: Vital Signs Temperature 95.8 F L 06/23/19 03:35 Pulse Rate 82 06/23/19 03:35 Respiratory Rate 14 06/23/19 04:30 Blood Pressure 132/100 06/23/19 03:35 O2 Sat by Pulse Oximetry (%) 100 06/23/19 03:35 Constitutional: Yes: Other (intubated and sedated) HENT: Yes: Atraumatic, Normocephalic Neck: Yes: Supple, Trachea Midline Cardiovascular: Yes: S1, S2 Respiratory: Yes: Intubated, Mechanically Ventilated Gastrointestinal: Yes: Normal Bowel Sounds, Soft Musculoskeletal: Yes: WNL Extremities: Yes: WNL Edema: Yes Edema: LLE: 1+, RLE: 1+ Peripheral Pulses WNL: Yes Neurological: Yes: Other (sedated) Labs: CBC, BMP 06/23/19 01:15 06/23/19 01:15 Imaging - Results Chest X-ray: Report Reviewed (@[facility]: chest x-ray reveals ET tube in good position; COPD pattern with flattening of diaphragms; no infiltrates/ pneumothorax/effusion/masses) EKG: Report Reviewed (EKG: normal sinus rhythm 97 bpm; there is right axis and partial RBBB. Nonspecific T wave pattern observed without acute ST abnormalities ) Assessment/Plan 88-year-old woman with a history of asthma/COPD, HTN, HLD, diverticular disease was carried into the ER Apneic and pulseless by her grandson: She had severe shortness of breath and wheezing at home this evening. Patient lost consciousness just prior to being transported by her grandson to the ER ( approximately 10 minutes away). Full cardiopulmonary resuscitation begun when patient arrived in the ER. At [facility] patient intubated, CPR for PEA until faint pulse was detected ( after approximately 20 minutes). Patient received 3 doses of 5 mg epinephrine IV over approximately 15 minutes.Patient was initially hypotensive (systolic 40 50s) with IV hydration improved. Rhythm was NSR Rectal temperature 99.6 F At ICU examined: EKG: NSR, temp: 95.8, spo2 100% mechanical vent, sedation with fentanyl. # Cardiac arrest (ROSC achieved in 20 min at [facility] ER) transferred to [facility] admitted to ICU - currently intubated with fentanyl sedation - intially labs wbc: 9.1, lactic acid 10.2 -- s/p 2 L IVF given in ICU - follow up repeat labs and lactic acid level - ABG initially showed PH of 7.07, now repeat improved to 7.29 - initial UA, and CXR were negative - follow up FORTUNE culture, and repeat CXR - follow up influenza A & B - continue with Vanco and zosyn - continue with IV steriods - Continue with nebs, suction as needed - follow up ID # COPD/ Asthma - intubated/sedated -continue with IV steriods, and nebs - broad abx # HTN/ HLD - monitor BP closely - if drops consider pressors FEN: IV fluids, replete lytes as needed, NPO VTE: Heparin QD, SCDs Dispo: ICU admission Visit type - Emergency Visit Emergency Visit: Yes ED Registration Date: 06/23/19 Care time: The patient presented to the Emergency Department on the above date and was hospitalized for further evaluation of their emergent condition. - New Patient This patient is new to me today: Yes Date on this admission: 06/23/19 - Critical Care Critical Care patient: Yes Total Critical Care Time (in minutes): 35 Critical Care Statement: The care of this patient involved high complexity decision making to prevent further life threatening deterioration of the patient 's condition and/or to evaluate & treat vital organ system(s) failure or risk of failure.
[2019-06-23] MEDS ORDERED: PIPERACILLIN/TAZOB 3.375 GM 3.375 GM in DEXTROSE 5%-WATER - 50 ML IVPB ONE (05:30)
[2019-06-23] MEDS ORDERED: VANCOMYCIN 1 GRAM (PRE-DOCKED) 1,000 MG/250 ML BAG IVPB ONE (05:30)
--- NOTE | 2019-06-23 05:51 | CONSULT ---
Consultation: REQUESTING PROVIDER: CONSULT REQUEST: We have been asked to medically evaluate this patient for ICU admission. HISTORY OF PRESENT ILLNESS: 88 y/o/f with PMHx of COPD, HLD, distant bladder ca s/p BCG washout and partial HYS, diverticulitis sent here from [facility] ED. Patient presented to [facility] ED in cardiopulmonary arrest. Patient was intubated and ROSC was achieved after ~20 minutes. Patient was hypotensive in the ER but improved after fluid resuscitation. Patient arrived to ICU intubated and sedated. Spoke with nguyễn, who lives with her, who stated that patient has had worsening SOB over the last week. Patient takes symbicort at home but was out of it for a week until she was able to get a new prescription two days ago. Patient saw her PCP Dr. Forbes on 06/21 for a physical and was found to be in her normal state of health. She takes Hydrocodone for coughing fits and has taken 2-3 doses since yesterday as per the son. Around midnight her grandson noted her to have increased labored breathing and decided to take her to the hospital. The patient was conscious when they left the house but arrived to [facility] ED pulse less and apneic as per ED attending. As per the grandson the patient had not been complaining of chest pain or abd pain. Patient has been having nausea with eating for the last week. REVIEW OF SYSTEMS: unable to obtain as patient is intubated and sedated PHYSICAL EXAMINATION Vital Signs - 24 hr 06/23/19 06/23/19 06/23/19 01:01 01:28 02:23 Temperature 99.6 F Pulse Rate 0 L Pulse Rate [ 88 Left] Respiratory 12 14 Rate Blood Pressure 62/19 L Blood Pressure 114/89 [Right] O2 Sat by Pulse 100 Oximetry (%) 06/23/19 06/23/19 03:35 04:30 Temperature 95.8 F L Pulse Rate Pulse Rate [ 82 Left] Respiratory 14 14 Rate Blood Pressure Blood Pressure 132/100 [Right] O2 Sat by Pulse 100 Oximetry (%) GENERAL: intubated, sedated HEAD: Normal with no signs of trauma. EYES: pupils not reactive to light, 1mm bilaterally EARS, NOSE, THROAT: dry, pale mucous membranes NECK: trachea midline, supple, intubated LUNGS: intubated breath sounds bilaterally, no rales, no rhonchi, no accessory muscle use HEART: Regular rate and rhythm, normal S1 and S2 without murmur, rub or gallop. ABDOMEN: Soft, nontender, not distended, normoactive bowel sounds, no guarding, no rebound, no masses. EXTREMITIES: 2+ pulses, No peripheral edema. Cold upper and lower extremities NEUROLOGICAL: pupils non reactive, negative dolls eyes, no gag reflex elicited Laboratory Results - last 24 hr 06/23/19 06/23/19 06/23/19 01:15 01:15 01:15 WBC 9.1 RBC 4.30 Hgb 13.8 Hct 43.7 D MCV 101.8 H MCH 32.2 MCHC 31.6 L RDW 13.9 D Plt Count 232 D MPV 9.5 Absolute Neuts (auto) 2.8 Neutrophils % 31.3 L D Neutrophils % (Manual) 36.8 L Band Neutrophils % 0.0 Lymphocytes % 60.9 H D Lymphocytes % (Manual) 42.9 H D Monocytes % 6.1 Monocytes % (Manual) 6 Eosinophils % 1.1 Eosinophils % (Manual) 1.0 Basophils % 0.6 Basophils % (Manual) 1.0 Myelocytes % (Man) 1 Promyelocytes % (Man) 0 Blast Cells % (Manual) 0 Nucleated RBC % 0 Metamyelocytes 0 D Hypochromia 0 Toxic Granulation 0 Dohle Bodies 0 Platelet Estimate Normal Polychromasia 0 Poikilocytosis 0 Basophilic Stippling 0 Anisocytosis 0 Microcytosis 0 Macrocytosis 0 Spherocytes 0 Sickle Cells 0 Target Cells 0 Tear Drop Cells 0 Ovalocytes 0 Stomatocytes 0 Helmet Cells 0 [place] Bodies 0 Hedrick Rings 0 Dorota Cells 0 Acanthocytes (Spur) 0 Rouleaux 0 Fragmented RBCs 0 Schistocytes 0 Anticoagulation Therapy Puncture Site ABG pH ABG pCO2 at Pt Temp ABG pO2 at Pt Temp ABG HCO3 ABG O2 Sat (Measured) ABG O2 Content ABG Base Excess Giovani Test O2 Delivery Device Oxygen Flow Rate Vent Mode Vent Rate Mechanical Rate Pressure Support Vent Sodium 138 Potassium 4.6 Chloride 104 Carbon Dioxide 20 L Anion Gap 14 BUN 16.3 Creatinine 1.0 Est GFR (CKD-EPI)AfAm 57.84 Est GFR (CKD-EPI)NonAf 49.91 Random Glucose 110 H Lactic Acid 10.2 H* Calcium 8.3 L Total Bilirubin 0.8 AST 23 ALT 20 Alkaline Phosphatase 110 Creatine Kinase 134 Troponin I < 0.02 Total Protein 5.9 L Albumin 3.1 L Urine Color Urine Appearance Urine pH Ur Specific [place] Urine Protein Urine Glucose (UA) Urine Ketones Urine Blood Urine Nitrite Urine Bilirubin Urine Urobilinogen Ur Leukocyte Esterase Urine WBC (Auto) Urine RBC (Auto) Urine Casts (Auto) U Epithel Cells (Auto) Urine Bacteria (Auto) 06/23/19 06/23/19 06/23/19 01:15 01:30 05:10 WBC RBC Hgb Hct MCV MCH MCHC RDW Plt Count MPV Absolute Neuts (auto) Neutrophils % Neutrophils % (Manual) Band Neutrophils % Lymphocytes % Lymphocytes % (Manual) Monocytes % Monocytes % (Manual) Eosinophils % Eosinophils % (Manual) Basophils % Basophils % (Manual) Myelocytes % (Man) Promyelocytes % (Man) Blast Cells % (Manual) Nucleated RBC % Metamyelocytes Hypochromia Toxic Granulation Dohle Bodies Platelet Estimate Polychromasia Poikilocytosis Basophilic Stippling Anisocytosis Microcytosis Macrocytosis Spherocytes Sickle Cells Target Cells Tear Drop Cells Ovalocytes Stomatocytes Helmet Cells [place] Bodies Hedrick Rings Dorota Cells Acanthocytes (Spur) Rouleaux Fragmented RBCs Schistocytes Anticoagulation Therapy No Result Required. No Result Required. Puncture Site No Result Required. ABG pH 7.07 L* ABG pCO2 at Pt Temp 50.5 H ABG pO2 at Pt Temp 255 H ABG HCO3 13.9 L ABG O2 Sat (Measured) 98.6 H ABG O2 Content 19.1 ABG Base Excess -16.5 L Giovani Test No Result Required. O2 Delivery Device No Result Required. No Result Required. Oxygen Flow Rate No Result Required. No Result Required. Vent Mode No Result Required. No Result Required. Vent Rate No Result Required. No Result Required. Mechanical Rate No Result Required. No Result Required. Pressure Support Vent No Result Required. No Result Required. Sodium Potassium Chloride Carbon Dioxide Anion Gap BUN Creatinine Est GFR (CKD-EPI)AfAm Est GFR (CKD-EPI)NonAf Random Glucose Lactic Acid Calcium Total Bilirubin AST ALT Alkaline Phosphatase Creatine Kinase Troponin I Total Protein Albumin Urine Color Yellow Urine Appearance Clear Urine pH 7.0 Ur Specific [place] 1.015 Urine Protein 2+ H Urine Glucose (UA) Negative Urine Ketones Negative Urine Blood Negative Urine Nitrite Negative Urine Bilirubin Negative Urine Urobilinogen 1.0 Ur Leukocyte Esterase Negative Urine WBC (Auto) 1 Urine RBC (Auto) 1 Urine Casts (Auto) 5 U Epithel Cells (Auto) 1.4 Urine Bacteria (Auto) 3.8 Active Medications Generic Name Dose Route Start Last Admin Trade Name Freq PRN Reason Stop Dose Admin Albuterol Sulfate 1 amp 06/23/19 05:06 Ventolin 0.083% Nebulizer Soln - NEB RQID PRN SHORT OF BREATH/WHEEZING Albuterol/Ipratropium 1 amp 06/23/19 08:00 Duoneb - NEB RQID MARISSA Chlorhexidine Gluconate 1 applic 06/23/19 22:00 Hibiclens For Decolonization - TP HS MARISSA Fentanyl 500 mcg/ Dextrose 100 mls @ 0.2 mls/hr 06/23/19 05:00 IVPB TITR MARISSA Protocol 1 MCG/HR Piperacillin Sod/Tazobactam 50 mls @ 100 mls/hr 06/23/19 05:30 Sod 3.375 gm/ Dextrose IVPB 06/23/19 05:59 ONCE ONE Protocol Vancomycin HCl 1,000 mg in 250 mls @ 166.667 mls/hr 06/23/19 05:30 Vancomycin (Pre-Docked) IVPB 06/23/19 06:59 ONCE ONE Methylprednisolone Sodium Succinate 40 mg 06/23/19 10:00 Solu-Medrol - IVPUSH DAILY ON LICENSE OF [facility] Mupirocin 1 applic 06/23/19 10:00 Bactroban Ointment (For Decolonization) - NS 06/28/19 09:59 BID ON LICENSE OF [facility] Pantoprazole Sodium 40 mg 06/23/19 10:00 Protonix - PO BID ON LICENSE OF [facility] ASSESSMENT/PLAN: 88 y/o/f with PMHx of COPD, HLD, distant bladder ca s/p BCG washout and partial HYS, diverticulitis sent here from [facility] ED after cardiopulmonary arrest, ROSC achieved after ~20 minutes of CPR. Patient arrived to ICU intubated and sedated. #Neuro - intubated, sedated - Fentanyl drip for sedation #Cardio - s/p cardiopulmonary arrest at [facility] ED, ROSC obtained after ~20 minutes - Initial trop negatives, second set ordered - Lactic acid 10.2, trend to normal - NS 1L x2 ordered - IVF for maintenance - Echocardiogram to evaluate cardiac function ordered - repeat EKG ordered - warming blanket for hypothermia #Pulm - hx of COPD - Duonebs RQID, Albuterol Q6hr PRN - Prednisone 40 QD due to concern for COPD exacerbation - CXR without any obvious acute pathology - intubated for respiratory support, consider extubating when appropriate - maintain spO2 >90% - initial ABG with pH of 7.07, pCO2 50.5, pO2 255. Repeat ABG with improvement: pH 7.29, pCO2 39.7, pO2 157. Vent settings adjusted accordingly. #GI - NPO while intubated - can consider tube feeds if intubated for extended period of time - hx of diverticulitis #ID - Vanc x1, Zosyn x1 ordered for empiric abx coverage - Blood, urine legionella, sputum, and urine cultures ordered - Influenza A and B ordered, Respiratory virus culture ordered - afebrile, no white count #Prophylaxis - SCDs - Protonix #FEN - monitor and replete lytes as needed - NS @75mls/hr #Disposition - ICU monitoring - As per nguyễn patient is full code as of now Visit type - Emergency Visit Emergency Visit: Yes ED Registration Date: 06/23/19 Care time: The patient presented to the Emergency Department on the above date and was hospitalized for further evaluation of their emergent condition. - New Patient This patient is new to me today: Yes Date on this admission: 06/23/19 - Critical Care Critical Care patient: Yes Total Critical Care Time (in minutes): 36 Critical Care Statement: The care of this patient involved high complexity decision making to prevent further life threatening deterioration of the patient 's condition and/or to evaluate & treat vital organ system(s) failure or risk of failure. ATTENDING PHYSICIAN STATEMENT I saw and evaluated the patient. I reviewed the resident's note and discussed the case with the resident. I agree with the resident's findings and plan as documented. SUBJECTIVE: OBJECTIVE: ASSESSMENT AND PLAN:
[2019-06-23] MEDS ORDERED: PIPERACILLIN/TAZOBACTAM 3.375 GM VIAL IVPB ONE (06:14)
[2019-06-23] MEDS ORDERED: DEXTROSE 5%-WATER - 50 ML IVPB ONE (06:14)
[2019-06-23 07:04] LABS: BASO % 0.1 % (0-2.0); EOS % 0.1 % (0-4.5); HEMATOCRIT 44.1 % (32.4-45.2); HEMOGLOBIN 14.2 GM/dL (10.7-15.3); LYMPH % 3.9 % (8-40); MCH 32.1 pg (25.7-33.7); MCHC 32.2 g/dl (32.0-36.0); MEAN CELL VOLUME 99.8 fl (80-96); MEAN PLT VOLUME 9.1 fl (7.5-11.1); MONO % 7.6 % (3.8-10.2); NEUT % 88.3 % (42.8-82.8); PLATELET COUNT 208 K/MM3 (134-434); RBC 4.42 M/mm3 (3.60-5.2); RDW 13.5 % (11.6-15.6); WHITE BLOOD COUNT 12.2 K/mm3 (4.0-10.0)
[2019-06-23] MEDS: SODIUM CHLORIDE 1,000 ML IV SCH ×2 (07:21→12:30)
[2019-06-23 07:27] LABS: INR 0.92 (0.83-1.09); PROTHROMBIN TIME (PATIENT) 10.8 SEC (9.7-13.0)
--- NOTE | 2019-06-23 07:40 | PN ---
Physical Exam: SUBJECTIVE: Patient seen and examined by the bedside, intubated and sedated. OBJECTIVE: Vital Signs Period Temp Pulse Resp BP Sys/Vila Pulse Ox Last 24 Hr 87.6 F-99.6 F 0-99 12-18 62-167/19-105 100-100 GENERAL: intubated, sedated HEAD: Normal with no signs of trauma. EYES: pupils not reactive to light, 1mm bilaterally EARS, NOSE, THROAT: dry, pale mucous membranes NECK: trachea midline, supple, intubated LUNGS: transmitted breath sounds B/L, no wheezes or crackles HEART: RRR, normal S1 and S2 without murmur, rub or gallop. ABDOMEN: Soft, nontender, not distended, normoactive bowel sounds, no guarding, no rebound, no masses. EXTREMITIES: 2+ pulses, No peripheral edema. Cold upper and lower extremities NEUROLOGICAL: pupils non reactive, negative dolls eyes, no gag reflex elicited CBC, BMP 06/23/19 05:20 06/23/19 05:20 ASSESSMENT/PLAN: 88F with PMH of COPD, HLD, bladder CA (s/p BCG washout and partial HYS), and diverticulitis. Presented to [facility] ER with labored breathing around midnight 06/23, lost consciousness and became pulseless. ROSC was achieved after 20 minutes of CPR. She was intubated, sedated, and given 2L fluids As per grandson, she has had worsening SOB/nausea since 1 week. No abdominal, chest pain. Was off regular symbicort, got a new prescription 2 days ago (Dr. Forbes), no issues at the time. #Neuro - intubated, sedated, on Fentanyl drip - Head CT pending - R/o Anoxic brain injury (myoclonic jerks on examination) #Cardio - S/p ROSC, Hypothermia protocol in progress - EKG: - Trop 0.02 -> 1.13 -> pending - LA10.2 -> 3.7 - CK 1076, CKMB 19.7 - Echo pending #Pulm - Intubated for respiratory support - Hx of COPD, continue Duonebs, Albuterol PRN - Solu-Medrol 40 QD for COPD exacerbation - CXR: No acute pathology, hyper aerated lungs - initial ABG with pH of 7.07, pCO2 50.5, pO2 255 repeat -> pH 7.29, pCO2 39.7 , pO2 157 #GI - NPO while intubated, may consider tube feeds if intubation is prolonged - AST 23 -> 256, ALT 20 -> 184 likely due to ischemic injury - ALP 160, Albumin 3.3, T Bili normal #ID - WBC 9.1 -> 12.2, Afebrile - Vanc x1, Zosyn x1 for empiric coverage - Blood, urine legionella, sputum, urine cx pending - Influenza A and B ordered, Respiratory virus culture ordered #Prophylaxis - SCDs. Lovenox 40mg SQ - Protonix 40mg #FEN - Ca 7.0 - NS @75mls/hr #Disposition - ICU monitoring - As per grandson patient is full code as of now ATTENDING PHYSICIAN STATEMENT I saw and evaluated the patient. I reviewed the resident's note and discussed the case with the resident. I agree with the resident's findings and plan as documented. SUBJECTIVE: OBJECTIVE: ASSESSMENT AND PLAN:
[2019-06-23 07:43] LABS: ALBUMIN 3.3 g/dl (3.4-5.0); BILIRUBIN,TOTAL 0.4 mg/dL (0.2-1); BLOOD UREA NITROGEN 19.1 mg/dL (7-18); CREATININE 0.9 mg/dL (0.55-1.3); MAGNESIUM 2.1 mg/dL (1.8-2.4); PHOSPHOROUS 3.8 mg/dL (2.5-4.9); POTASSIUM 4.1 mmol/L (3.5-5.1); TOT PROT 5.6 g/dl (6.4-8.2)
[2019-06-23] MEDS: ALBUTEROL SO4 2.5/IPRATROPIUM 0.5 INH SOL 3 ML VIAL.NEB. NEB SCH ×4 (08:10→20:09)
--- NOTE | 2019-06-23 09:46 | PN ---
Progress Note, Physician Chief Complaint: EVENTS REVIEWED SEDATED, INTUBATED/VENT SUPPORT - Current Medication List Current Medications: Active Medications Albuterol Sulfate (Ventolin 0.083% Nebulizer Soln -) 1 amp NEB RQID PRN PRN Reason: SHORT OF BREATH/WHEEZING Albuterol/Ipratropium (Duoneb -) 1 amp NEB RQID MARISSA Chlorhexidine Gluconate (Hibiclens For Decolonization -) 1 applic TP HS MARISSA Enoxaparin Sodium (Lovenox -) 40 mg SQ DAILY MARISSA Fentanyl 500 mcg/ Dextrose 100 mls @ 0.2 mls/hr IVPB TITR MARISSA; Protocol Last Titration: 06/23/19 06:45 Dose: 15 mcg/hr, 3 mls/hr Sodium Chloride (Normal Saline -) 1,000 mls @ 75 mls/hr IV ASDIR MARISSA Last Admin: 06/23/19 07:21 Dose: 75 mls/hr Methylprednisolone Sodium Succinate (Solu-Medrol -) 40 mg IVPUSH DAILY [facility] Mupirocin (Bactroban Ointment (For Decolonization) -) 1 applic NS BID MARISSA Stop: 06/28/19 09:59 Pantoprazole Sodium (Protonix -) 40 mg PO BID MARISSA - Objective Vital Signs: Vital Signs Temperature 88 F L 06/23/19 06:30 Pulse Rate 66 06/23/19 08:00 Respiratory Rate 18 06/23/19 08:00 Blood Pressure 147/103 H 06/23/19 08:00 O2 Sat by Pulse Oximetry (%) 100 06/23/19 06:00 Constitutional: Yes: Other Cardiovascular: Yes: Tachycardia Respiratory: Yes: Diminished, Mechanically Ventilated Gastrointestinal: Yes: Soft Genitourinary: Yes: [place] Present Musculoskeletal: Yes: Muscle Weakness Labs: CBC, BMP 06/23/19 05:20 06/23/19 05:20 INR, PTT INR 0.92 (0.83-1.09) 06/23/19 05:20 Problem List - Problems (1) Endotracheally intubated Code(s): Z97.8 - PRESENCE OF OTHER SPECIFIED DEVICES (2) Respiratory failure Code(s): J96.90 - RESPIRATORY FAILURE, UNSP, UNSP W HYPOXIA OR HYPERCAPNIA (3) Leukocytosis Code(s): D72.829 - ELEVATED WHITE BLOOD CELL COUNT, UNSPECIFIED (4) Cardiac arrest Code(s): I46.9 - CARDIAC ARREST, CAUSE UNSPECIFIED (5) Diverticulosis large intestine w/o perforation or abscess w/bleeding Code(s): K57.31 - DVRTCLOS OF LG INT W/O PERFORATION OR ABSCESS W BLEEDING (6) Lower GI bleed Code(s): K92.2 - GASTROINTESTINAL HEMORRHAGE, UNSPECIFIED (7) Transaminitis Code(s): R74.0 - NONSPEC ELEV OF LEVELS OF TRANSAMNS & LACTIC ACID DEHYDRGNSE Assessment/Plan VENT SUPPORT ON STEROIDS IV TAPER BOTH TOLERATED ADVANCED DIRECTIVES NEED TO BE DISCUSSED WITH FAMILY. PMD DR HICKEY, WE WILL BE COVERING I WILL ASK DR HICKEY FOR ANY CHART DOCUMENTS ON ADVANCED DIRECTIVES. ID/PULMONARY WORKUP. FULL CODE FOR NOW R/O ASPIRATION PNA WELL SEPSIS
[2019-06-23] MEDS ORDERED: PANTOPRAZOLE 40 MG TABLET (FP) PO SCH (10:00)
--- NOTE | 2019-06-23 10:18 | EKG ---
Test Reason : Blood Pressure : / mmHG Vent. Rate : 097 BPM Atrial Rate : 097 BPM P-R Int : 156 ms QRS Dur : 104 ms QT Int : 436 ms P-R-T Axes : 088 097 097 degrees QTc Int : 553 ms NORMAL SINUS RHYTHM RIGHTWARD AXIS PULMONARY DISEASE PATTERN INCOMPLETE RIGHT BUNDLE BRANCH BLOCK NONSPECIFIC T WAVE ABNORMALITY PROLONGED QT ABNORMAL ECG WHEN COMPARED WITH ECG OF 23-JUL-2018 00:23, SIGNIFICANT CHANGES HAVE OCCURRED Confirmed by YANA BAZAN MD ([id number]) on 06/23/2019 10:18:12 AM Referred By: NICKI Confirmed By:YANA BAZAN MD
--- NOTE | 2019-06-23 10:29 | EKG ---
Test Reason : Blood Pressure : / mmHG Vent. Rate : 066 BPM Atrial Rate : 066 BPM P-R Int : 112 ms QRS Dur : 078 ms QT Int : 502 ms P-R-T Axes : 000 071 032 degrees QTc Int : 526 ms SINUS RHYTHM WITH PREMATURE SUPRAVENTRICULAR COMPLEXES LOW VOLTAGE QRS CANNOT RULE OUT INFERIOR INFARCT , AGE UNDETERMINED ABNORMAL ECG WHEN COMPARED WITH ECG OF 23-JUN-2019 01:00, PREMATURE SUPRAVENTRICULAR COMPLEXES ARE NOW PRESENT INCOMPLETE RIGHT BUNDLE BRANCH BLOCK IS NO LONGER PRESENT Confirmed by HORTENSIA SHAVER, YANA ([id number]) on 06/23/2019 10:29:11 AM Referred By: Channing GAN Confirmed By:YANA BAZAN MD
[2019-06-23] MEDS: MUPIROCIN 2% TOPICAL OINTMENT FOR DECOLONIZATION NS SCH ×2 (11:00→22:07)
[2019-06-23] MEDS: methylPREDNISolone NA SUCC 40 MG/1 ML VIAL IVPUSH SCH (11:01)
[2019-06-23] MEDS: ENOXAPARIN NA (PORCINE) 40 MG/0.4 ML DISP.SYRIN SQ SCH (11:01)
--- NOTE | 2019-06-23 11:46 | ECHO ---
Name: CHRISTIAN [place] Exam:Adult Echocardiogram Study Date: 06/23/2019 08:00 AM Age: 88 yrs Reason For Study: Cardiac arrest Height: 59 in Weight: 85 lb BSA: 1.3 m2 MMode/2D Measurements & Calculations IVSd: 0.83 cm Ao root diam: 2.5 cm LVIDd: 2.4 cm LA dimension: 2.2 cm LVIDs: 1.5 cm LVPWd: 0.83 cm EDV(Teich): 20.3 ml LVOT diam: 2.0 cm ESV(Teich): 5.8 ml Doppler Measurements & Calculations MV E max rick: 54.3 cm/sec Ao V2 max: 86.9 cm/sec MV A max rick: 78.6 cm/sec Ao max P.0 mmHg MV E/A: 0.69 MV dec time: 0.24 sec KRISTEN(V,D): 1.7 cm2 LV V1 max P.96 mmHg TR max rick: 217.2 cm/sec LV V1 max: 49.0 cm/sec TR max P.9 mmHg PA V2 max: 71.9 cm/sec Med Peak E' Rick: 5.9 cm/sec PA max P.1 mmHg Med E/e': 9.2 Lat Peak E' Rick: 4.4 cm/sec Lat E/e': 12.5 PI Vmax: 167.0 cm/sec Procedure A two-dimensional transthoracic echocardiogram with color flow and Doppler was performed. The study w as technically difficult with many images being suboptimal in quality. Left Ventricle The left ventricular size, thickness and function are normal. The left ventricle is not well visualiz ed. The left ventricular ejection fraction is normal. E/A reversal consistent with but not diagnostic of poor LV compliance. Regional wall motion abnormalities cannot be excluded due to limited visualization. Right Ventricle The right ventricle is not well visualized. The right ventricle is moderate to severely dilated. A mo derator band is seen in the right ventricle. The right ventricular systolic function is moderate to severely reduced. Atria Normal left and right atrial size and function. Mitral Valve The mitral valve is not well visualized. There is no mitral valve stenosis. There is trace to mild mi tral regurgitation. Tricuspid Valve There is mild tricuspid valve thickening. There is no tricuspid stenosis. There is mild tricuspid regurgitation. Right ventricular systolic pressure is normal. Aortic Valve The aortic valve is trileaflet. There is mild aortic valve thickening. There is mild aortic sclerosis .;. No hemodynamically significant valvular aortic stenosis. No aortic regurgitation is present. Pulmonic Valve The pulmonic valve is not well visualized. There is no pulmonic valvular stenosis. Trace to mild pulm onic valvular regurgitation. Great Vessels The aortic root is normal size. Pericardium/Pleura There is no pericardial effusion. Interpretation Summary The left ventricular size, thickness and function are normal The left ventricular ejection fraction is normal. There is mild tricuspid regurgitation. Right ventricular systolic pressure is normal. There is mild aortic valve thickening. There is mild aortic sclerosis.; The study was technically difficult with many images being suboptimal in quality. Regional wall motion abnormalities cannot be excluded due to limited visualization. The right ventricle is not well visualized. The right ventricle is moderate to severely dilated. A moderator band is seen in the right ventricle. The right ventricular systolic function is moderate to severely reduced. E/A reversal consistent with but not diagnostic of poor LV compliance The left ventricle is not well visualized. MD Mekhi Palomino 06/23/2019 11:46 AM
--- NOTE | 2019-06-23 12:11 | PN ---
Teaching Attending Note Name of Resident: Sampson Saravia ATTENDING PHYSICIAN STATEMENT I saw and evaluated the patient. I reviewed the resident's note and discussed the case with the resident. I agree with the resident's findings and plan as documented. SUBJECTIVE: Pt seen and examined in the ICU. Remains intubated, sedated. Hypothermia protocol in progress. Occasional myoclonic jerks. OBJECTIVE: Vital Signs Period Temp Pulse Resp BP Sys/Vila Pulse Ox Last 24 Hr 87.6 F-99.6 F 0-99 4-18 62-167/19-105 100-100 Intake & Output 06/20/19 06/21/19 06/22/19 06/23/19 23:59 23:59 23:59 23:59 Intake Total 4000 Output Total 2265 Balance 1735 Weight 38.555 kg Gen: intubated, sedated Heart: RRR Lung: decreased breath sounds at the bases Abd: soft, nontender Ext: no edema CBC, BMP 06/23/19 05:20 06/23/19 05:20 Active Medications Albuterol Sulfate (Ventolin 0.083% Nebulizer Soln -) 1 amp NEB RQID PRN PRN Reason: SHORT OF BREATH/WHEEZING Albuterol/Ipratropium (Duoneb -) 1 amp NEB RQID MARISSA Last Admin: 06/23/19 11:51 Dose: 1 amp Chlorhexidine Gluconate (Hibiclens For Decolonization -) 1 applic TP HS MARISSA Enoxaparin Sodium (Lovenox -) 40 mg SQ DAILY [facility] Last Admin: 06/23/19 11:01 Dose: 40 mg Fentanyl 500 mcg/ Dextrose 100 mls @ 0.2 mls/hr IVPB TITR MARISSA; Protocol Last Titration: 06/23/19 06:45 Dose: 15 mcg/hr, 3 mls/hr Sodium Chloride (Normal Saline -) 1,000 mls @ 75 mls/hr IV ASDIR MARISSA Last Admin: 06/23/19 07:21 Dose: 75 mls/hr Methylprednisolone Sodium Succinate (Solu-Medrol -) 40 mg IVPUSH DAILY [facility] Last Admin: 06/23/19 11:01 Dose: 40 mg Mupirocin (Bactroban Ointment (For Decolonization) -) 1 applic NS BID [facility] Stop: 06/28/19 09:59 Pantoprazole Sodium (Protonix -) 40 mg PO BID [facility] Last Admin: 06/23/19 11:01 Dose: Not Given ASSESSMENT AND PLAN: s/p Cardiopulmonary Arrest r/o Anoxic Brain Injury r/o Acute COPD Exacerbation +Troponins likely Demand Ischemia Lactic Acidosis Elevated LFTs likely Ischemic injury Rhabdomyolysis - hypothermia protocol in progress - continue medrol - inhaled bronchodilators - minimize sedation to assess mental status - CT head when hypothermia protocol completed - IVF - trend lactate, LFTs, cardiac enzymes - echocardiogram - not a candidate for weaning at this time - DVT/GI prophylaxis - continue ICU monitoring - prognosis guarded critical care time spent in reviewing chart, evaluating patient and formulating plan 35 min
[2019-06-23] MEDS: PROPOFOL 1,000,000 MCG/100 ML VIAL IVPB SCH ×2 (12:30→22:11)
[2019-06-23] MEDS ORDERED: PROPOFOL 1,000,000 MCG/100 ML VIAL ONE (12:33)
[2019-06-23 14:18] LABS: BASO % 0.3 % (0-2.0); HEMOGLOBIN 15.3 GM/dL (10.7-15.3); LYMPH % 1.9 % (8-40); MCHC 33.2 g/dl (32.0-36.0); MEAN CELL VOLUME 99.4 fl (80-96); MEAN PLT VOLUME 9.6 fl (7.5-11.1); MONO % 2.9 % (3.8-10.2); NEUT % 94.9 % (42.8-82.8); PLATELET COUNT 222 K/MM3 (134-434); RBC 4.62 M/mm3 (3.60-5.2); RDW 13.8 % (11.6-15.6); WHITE BLOOD COUNT 13.5 K/mm3 (4.0-10.0)
[2019-06-23 14:30] LABS: INR 0.9 (0.83-1.09); PROTHROMBIN TIME (PATIENT) 10.6 SEC (9.7-13.0)
[2019-06-23 14:33] LABS: ACTIVATED PTT 37.5 SECONDS (25.2-36.5)
[2019-06-23 14:44] LABS: ANISOCYTOSIS 0; MACROCYTOSIS 0; PLATELET ESTIMATE NORMAL
[2019-06-23 15:49] LABS: BILIRUBIN,TOTAL 1.6 mg/dL (0.2-1); BLOOD UREA NITROGEN 13.9 mg/dL (7-18); CREATININE 0.9 mg/dL (0.55-1.3); POTASSIUM 4.3 mmol/L (3.5-5.1)
[2019-06-23 15:55] LABS: CALCIUM 5.4 mg/dL (8.5-10.1)
[2019-06-23] MEDS ORDERED: CALCIUM GLUCONATE 10% - 1,000 MG/10 ML VIAL IVPB ONE (16:09)
[2019-06-23] MEDS: FENTANYL INJECTION 500 MCG in DEXTROSE 5%-WATER - 90 ML IVPB SCH ×2 (17:30→20:46)
[2019-06-23] MEDS ORDERED: fentaNYL CITRATE 250 MCG/5 ML VIAL ONE (20:39)
[2019-06-23] MEDS ORDERED: PANTOPRAZOLE SODIUM 40 MG VIAL IVPUSH ONE (20:58)
[2019-06-23] MEDS: CHLORHEXIDINE GLUCONATE 4% CLEANSER FOR DECOLONIZATION TP SCH (22:07)
[2019-06-23] MEDS: PANTOPRAZOLE SODIUM 40 MG VIAL IVPUSH SCH (22:07)
[2019-06-24] MEDS ORDERED: fentaNYL CITRATE 250 MCG/5 ML VIAL ONE ×2 (02:43→22:52)
[2019-06-24] MEDS: FENTANYL INJECTION 500 MCG in DEXTROSE 5%-WATER - 90 ML IVPB SCH ×3 (03:18→23:11)
[2019-06-24 07:04] LABS: BASO % 0.2 % (0-2.0); HEMATOCRIT 39.4 % (32.4-45.2); HEMOGLOBIN 13.1 GM/dL (10.7-15.3); LYMPH % 3.4 % (8-40); MCH 32.5 pg (25.7-33.7); MCHC 33.2 g/dl (32.0-36.0); MEAN CELL VOLUME 97.9 fl (80-96); MEAN PLT VOLUME 9.6 fl (7.5-11.1); MONO % 5.5 % (3.8-10.2); NEUT % 90.9 % (42.8-82.8); PLATELET COUNT 168 K/MM3 (134-434); RBC 4.03 M/mm3 (3.60-5.2); RDW 13.3 % (11.6-15.6); WHITE BLOOD COUNT 17.1 K/mm3 (4.0-10.0)
[2019-06-24 07:36] LABS: ALBUMIN 3.1 g/dl (3.4-5.0); BILIRUBIN,TOTAL 0.6 mg/dL (0.2-1); BLOOD UREA NITROGEN 21.2 mg/dL (7-18); CALCIUM 7.8 mg/dL (8.5-10.1); PHOSPHOROUS 5.1 mg/dL (2.5-4.9); POTASSIUM 4.1 mmol/L (3.5-5.1); TOT PROT 5.5 g/dl (6.4-8.2)
[2019-06-24] MEDS: ALBUTEROL SO4 2.5/IPRATROPIUM 0.5 INH SOL 3 ML VIAL.NEB. NEB SCH ×4 (08:00→20:01)
[2019-06-24] MEDS ORDERED: LORazepam 2 MG/ML SDV VIAL IVPUSH ONE (08:50)
[2019-06-24] MEDS ORDERED: LORazepam 2 MG/ML SDV VIAL ONE (08:54)
[2019-06-24] MEDS: SODIUM CHLORIDE 1,000 ML IV SCH ×2 (09:00→14:00)
[2019-06-24] MEDS: methylPREDNISolone NA SUCC 40 MG/1 ML VIAL IVPUSH SCH (09:32)
[2019-06-24] MEDS: ENOXAPARIN NA (PORCINE) 40 MG/0.4 ML DISP.SYRIN SQ SCH (09:32)
[2019-06-24] MEDS: MUPIROCIN 2% TOPICAL OINTMENT FOR DECOLONIZATION NS SCH ×2 (09:32→21:05)
[2019-06-24] MEDS: PANTOPRAZOLE SODIUM 40 MG VIAL IVPUSH SCH (09:32)
--- NOTE | 2019-06-24 11:46 | PN ---
Progress Note, Physician Chief Complaint: patient seen and examined in icu intubated sedated hypothermia resolved now temp 98.3 s/p cardiac arrest occasional facial muscle twitching noted - Current Medication List Current Medications: Active Medications Albuterol Sulfate (Ventolin 0.083% Nebulizer Soln -) 1 amp NEB RQID PRN PRN Reason: SHORT OF BREATH/WHEEZING Albuterol/Ipratropium (Duoneb -) 1 amp NEB RQID MARISSA Last Admin: 06/24/19 08:00 Dose: 1 amp Chlorhexidine Gluconate (Hibiclens For Decolonization -) 1 applic TP HS MARISSA Last Admin: 06/23/19 22:07 Dose: 1 applic Enoxaparin Sodium (Lovenox -) 40 mg SQ DAILY [facility] Last Admin: 06/24/19 09:32 Dose: 40 mg Sodium Chloride (Normal Saline -) 1,000 mls @ 75 mls/hr IV ASDIR MARISSA Last Admin: 06/24/19 09:00 Dose: 75 mls/hr Sodium Chloride (Normal Saline -) 1,000 mls @ 75 mls/hr IV ASDIR MARISSA Last Admin: 06/23/19 12:30 Dose: 75 mls/hr Propofol (Diprivan -) 1,000,000 mcg in 100 mls @ 1.157 mls/hr IVPB TITR MARISSA; Protocol Last Titration: 06/24/19 08:50 Dose: 0 mcg/kg/min, 0 mls/hr Fentanyl 500 mcg/ Dextrose 100 mls @ 10 mls/hr IVPB TITR MARISSA Stop: 06/24/19 17:29 Last Titration: 06/24/19 08:50 Dose: 0 mcg/hr, 0 mls/hr Methylprednisolone Sodium Succinate (Solu-Medrol -) 40 mg IVPUSH DAILY COUNTS INCLUDE 234 BEDS AT THE [facility] Last Admin: 06/24/19 09:32 Dose: 40 mg Mupirocin (Bactroban Ointment (For Decolonization) -) 1 applic NS BID [facility] Stop: 06/28/19 09:59 Last Admin: 06/24/19 09:32 Dose: 1 applic Pantoprazole Sodium (Protonix Iv) 40 mg IVPUSH DAILY COUNTS INCLUDE 234 BEDS AT THE [facility] Last Admin: 06/24/19 09:32 Dose: 40 mg - Objective Vital Signs: Vital Signs Temperature 96.1 F L 06/24/19 06:00 Pulse Rate 99 H 06/24/19 08:00 Respiratory Rate 14 06/24/19 10:00 Blood Pressure 121/77 06/24/19 10:00 O2 Sat by Pulse Oximetry (%) 99 06/24/19 10:00 Constitutional: Yes: Calm Neck: Yes: Other (intubated) Cardiovascular: Yes: Regular Rate and Rhythm, S1, S2 Respiratory: Yes: Mechanically Ventilated Gastrointestinal: Yes: Normal Bowel Sounds, Soft Edema: No Neurological: Yes: Other (sedated) Labs: CBC, BMP 06/24/19 05:25 06/24/19 05:25 INR, PTT INR 0.90 (0.83-1.09) 06/23/19 14:00 Problem List - Problems (1) Cardiac arrest Assessment/Plan: hypothermia resolved intubated and sedated full code awaitng CT head now that the hypothermia protocol is completed EEG pending CTA orderd to r/o PE on lovenox echo left ventricle ejection fraction and thickness and function normal on medrol Code(s): I46.9 - CARDIAC ARREST, CAUSE UNSPECIFIED (2) Respiratory failure Assessment/Plan: intubated and sedated AC mode Code(s): J96.90 - RESPIRATORY FAILURE, UNSP, UNSP W HYPOXIA OR HYPERCAPNIA (3) Transaminitis Assessment/Plan: lft much improved will conitue ot ,monitor elevation post lilkey secondary to cardiac arrest Code(s): R74.0 - NONSPEC ELEV OF LEVELS OF TRANSAMNS & LACTIC ACID DEHYDRGNSE (4) Leukocytosis Assessment/Plan: trending upwrds on iv medrol as well will conitnue to monitor Microbiology 06/23/19 05:30 Urine - Urine [place] Legionella Antigen - Final 06/23/19 05:30 Urine - Urine [place] Streptococcus pneumoniae Antigen (M - Final 06/23/19 05:30 Urine - Urine - Catheterized Urine Culture - Final NO GROWTH OBTAINED 06/23/19 05:35 Blood - Peripheral Venous Blood Culture - Preliminary NO GROWTH OBTAINED AFTER 24 HOURS, INCUBATION TO CONTINUE FOR 4 DAYS. sputum culture pending Code(s): D72.829 - ELEVATED WHITE BLOOD CELL COUNT, UNSPECIFIED
--- NOTE | 2019-06-24 12:08 | PN ---
Teaching Attending Note Name of Resident: Mello Glez ATTENDING PHYSICIAN STATEMENT I saw and evaluated the patient. I reviewed the resident's note and discussed the case with the resident. I agree with the resident's findings and plan as documented. SUBJECTIVE: Patient seen and examined in the ICU. Remains intubated. Off sedation but minimally responsive. No Pressors. Intermittent myoclonic jerks. Intake & Output 06/21/19 06/22/19 06/23/19 06/24/19 23:59 23:59 23:59 23:59 Intake Total 5349 2390 Output Total 3565 400 Balance 1784 1989 Weight 85 lb 84 lb 6.4 oz Last Vital Signs Temp Pulse Resp BP Pulse Ox 96.1 F L 99 H 14 121/77 99 06/24/19 06:00 06/24/19 08:00 06/24/19 11:52 06/24/19 10:00 06/24/19 11:52 Laboratory Results - last 24 hr 06/23/19 06/23/19 06/23/19 12:00 12:00 14:00 WBC 13.5 H RBC 4.62 Hgb 15.3 Hct 46.0 H MCV 99.4 H MCH 33.0 MCHC 33.2 RDW 13.8 Plt Count 222 MPV 9.6 Absolute Neuts (auto) 12.8 H Neutrophils % 94.9 H Neutrophils % (Manual) 90.2 H Band Neutrophils % 6.2 Lymphocytes % 1.9 L D Lymphocytes % (Manual) 2.7 L D Monocytes % 2.9 L Monocytes % (Manual) 1 L D Eosinophils % 0.0 D Eosinophils % (Manual) 0.0 D Basophils % 0.3 Basophils % (Manual) 0.0 Myelocytes % (Man) 0 D Promyelocytes % (Man) 0 Blast Cells % (Manual) 0 Nucleated RBC % 0 Metamyelocytes 0 Hypochromia 0 Platelet Estimate Normal Polychromasia 0 Poikilocytosis 0 Anisocytosis 0 Microcytosis 0 Macrocytosis 0 PT with INR INR PTT (Actin FS) Sodium 128 L Potassium 4.3 Chloride 96 L Carbon Dioxide 22 Anion Gap 10 BUN 13.9 Creatinine 0.9 Est GFR (CKD-EPI)AfAm 65.70 Est GFR (CKD-EPI)NonAf 56.69 Random Glucose 241 H Lactic Acid 4.2 H* Calcium 5.4 L* Phosphorus Magnesium Total Bilirubin 1.6 H AST 4491 H ALT 3833 H Alkaline Phosphatase 139 H Creatine Kinase 2641 H Creatine Kinase Index 2.1 CK-MB (CK-2) 56.0 H Troponin I 1.61 H* Total Protein 6.0 L Albumin 3.0 L 06/23/19 06/24/19 06/24/19 14:00 05:25 05:25 WBC 17.1 H RBC 4.03 Hgb 13.1 Hct 39.4 MCV 97.9 H MCH 32.5 MCHC 33.2 RDW 13.3 Plt Count 168 D MPV 9.6 Absolute Neuts (auto) 15.6 H Neutrophils % 90.9 H Neutrophils % (Manual) Band Neutrophils % Lymphocytes % 3.4 L D Lymphocytes % (Manual) Monocytes % 5.5 D Monocytes % (Manual) Eosinophils % 0.0 Eosinophils % (Manual) Basophils % 0.2 Basophils % (Manual) Myelocytes % (Man) Promyelocytes % (Man) Blast Cells % (Manual) Nucleated RBC % 0 Metamyelocytes Hypochromia Platelet Estimate Polychromasia Poikilocytosis Anisocytosis Microcytosis Macrocytosis PT with INR 10.60 INR 0.90 PTT (Actin FS) 37.5 H Sodium 138 Potassium 4.1 Chloride 108 H Carbon Dioxide 19 L Anion Gap 11 BUN 21.2 H Creatinine 1.0 Est GFR (CKD-EPI)AfAm 57.84 Est GFR (CKD-EPI)NonAf 49.91 Random Glucose 96 Lactic Acid Calcium 7.8 L Phosphorus 5.1 H Magnesium 2.0 Total Bilirubin 0.6 AST 180 H ALT 134 H Alkaline Phosphatase 114 Creatine Kinase Creatine Kinase Index CK-MB (CK-2) Troponin I 0.76 H* Total Protein 5.5 L Albumin 3.1 L 06/24/19 05:25 WBC RBC Hgb Hct MCV MCH MCHC RDW Plt Count MPV Absolute Neuts (auto) Neutrophils % Neutrophils % (Manual) Band Neutrophils % Lymphocytes % Lymphocytes % (Manual) Monocytes % Monocytes % (Manual) Eosinophils % Eosinophils % (Manual) Basophils % Basophils % (Manual) Myelocytes % (Man) Promyelocytes % (Man) Blast Cells % (Manual) Nucleated RBC % Metamyelocytes Hypochromia Platelet Estimate Polychromasia Poikilocytosis Anisocytosis Microcytosis Macrocytosis PT with INR INR PTT (Actin FS) Sodium Potassium Chloride Carbon Dioxide Anion Gap BUN Creatinine Est GFR (CKD-EPI)AfAm Est GFR (CKD-EPI)NonAf Random Glucose Lactic Acid 2.7 H* Calcium Phosphorus Magnesium Total Bilirubin AST ALT Alkaline Phosphatase Creatine Kinase Creatine Kinase Index CK-MB (CK-2) Troponin I Total Protein Albumin Gen: intubated, minimally responsive Heart: RRR Lung: decreased breath sounds at the bases Abd: soft, nontender Ext: no edema Laboratory Results - last 24 hr 06/23/19 06/23/19 06/23/19 12:00 12:00 14:00 WBC 13.5 H RBC 4.62 Hgb 15.3 Hct 46.0 H MCV 99.4 H MCH 33.0 MCHC 33.2 RDW 13.8 Plt Count 222 MPV 9.6 Absolute Neuts (auto) 12.8 H Neutrophils % 94.9 H Neutrophils % (Manual) 90.2 H Band Neutrophils % 6.2 Lymphocytes % 1.9 L D Lymphocytes % (Manual) 2.7 L D Monocytes % 2.9 L Monocytes % (Manual) 1 L D Eosinophils % 0.0 D Eosinophils % (Manual) 0.0 D Basophils % 0.3 Basophils % (Manual) 0.0 Myelocytes % (Man) 0 D Promyelocytes % (Man) 0 Blast Cells % (Manual) 0 Nucleated RBC % 0 Metamyelocytes 0 Hypochromia 0 Platelet Estimate Normal Polychromasia 0 Poikilocytosis 0 Anisocytosis 0 Microcytosis 0 Macrocytosis 0 PT with INR INR PTT (Actin FS) Sodium 128 L Potassium 4.3 Chloride 96 L Carbon Dioxide 22 Anion Gap 10 BUN 13.9 Creatinine 0.9 Est GFR (CKD-EPI)AfAm 65.70 Est GFR (CKD-EPI)NonAf 56.69 Random Glucose 241 H Lactic Acid 4.2 H* Calcium 5.4 L* Phosphorus Magnesium Total Bilirubin 1.6 H AST 4491 H ALT 3833 H Alkaline Phosphatase 139 H Creatine Kinase 2641 H Creatine Kinase Index 2.1 CK-MB (CK-2) 56.0 H Troponin I 1.61 H* Total Protein 6.0 L Albumin 3.0 L 06/23/19 06/24/19 06/24/19 14:00 05:25 05:25 WBC 17.1 H RBC 4.03 Hgb 13.1 Hct 39.4 MCV 97.9 H MCH 32.5 MCHC 33.2 RDW 13.3 Plt Count 168 D MPV 9.6 Absolute Neuts (auto) 15.6 H Neutrophils % 90.9 H Neutrophils % (Manual) Band Neutrophils % Lymphocytes % 3.4 L D Lymphocytes % (Manual) Monocytes % 5.5 D Monocytes % (Manual) Eosinophils % 0.0 Eosinophils % (Manual) Basophils % 0.2 Basophils % (Manual) Myelocytes % (Man) Promyelocytes % (Man) Blast Cells % (Manual) Nucleated RBC % 0 Metamyelocytes Hypochromia Platelet Estimate Polychromasia Poikilocytosis Anisocytosis Microcytosis Macrocytosis PT with INR 10.60 INR 0.90 PTT (Actin FS) 37.5 H Sodium 138 Potassium 4.1 Chloride 108 H Carbon Dioxide 19 L Anion Gap 11 BUN 21.2 H Creatinine 1.0 Est GFR (CKD-EPI)AfAm 57.84 Est GFR (CKD-EPI)NonAf 49.91 Random Glucose 96 Lactic Acid Calcium 7.8 L Phosphorus 5.1 H Magnesium 2.0 Total Bilirubin 0.6 AST 180 H ALT 134 H Alkaline Phosphatase 114 Creatine Kinase Creatine Kinase Index CK-MB (CK-2) Troponin I 0.76 H* Total Protein 5.5 L Albumin 3.1 L 06/24/19 05:25 WBC RBC Hgb Hct MCV MCH MCHC RDW Plt Count MPV Absolute Neuts (auto) Neutrophils % Neutrophils % (Manual) Band Neutrophils % Lymphocytes % Lymphocytes % (Manual) Monocytes % Monocytes % (Manual) Eosinophils % Eosinophils % (Manual) Basophils % Basophils % (Manual) Myelocytes % (Man) Promyelocytes % (Man) Blast Cells % (Manual) Nucleated RBC % Metamyelocytes Hypochromia Platelet Estimate Polychromasia Poikilocytosis Anisocytosis Microcytosis Macrocytosis PT with INR INR PTT (Actin FS) Sodium Potassium Chloride Carbon Dioxide Anion Gap BUN Creatinine Est GFR (CKD-EPI)AfAm Est GFR (CKD-EPI)NonAf Random Glucose Lactic Acid 2.7 H* Calcium Phosphorus Magnesium Total Bilirubin AST ALT Alkaline Phosphatase Creatine Kinase Creatine Kinase Index CK-MB (CK-2) Troponin I Total Protein Albumin ASSESSMENT AND PLAN: s/p Cardiopulmonary Arrest Anoxic Brain Injury Acute COPD Exacerbation +Troponins likely Demand Ischemia Lactic Acidosis Elevated LFTs likely Ischemic injury Rhabdomyolysis - S/P hypothermia protocol - continue medrol - inhaled bronchodilators - Hold all sedation to assess mental status - CT head - IVF - Echocardiogram - Not a candidate for weaning at this time - DVT/GI prophylaxis - Requires continued ICU monitoring Overall prognosis for meaning recovery is poor Dr Day Critical care time spent in reviewing chart, evaluating patient and formulating plan 35 min
--- NOTE | 2019-06-24 12:36 | PN ---
Physical Exam: SUBJECTIVE: Patient seen and examined. Intubated. Sedated. Spoke with grandson at bedside and explained patient's clinical condition. Explained that prognosis is poor, stressed the importance of speaking with family to discuss goals of care. OBJECTIVE: Vital Signs Period Temp Pulse Resp BP Sys/Vila Pulse Ox Last 24 Hr 90 F-96.1 F 56-119 11-21 76-121/56-98 98-100 GENERAL: intubated, sedated HEAD: Normal with no signs of trauma. EYES: upward gaze, pupils non responsive. ENT: dry mucous membranes NECK: Trachea midline LUNGS: decreased breath sounds bilaterally, no accessory muscle use HEART: tachycardic, s1,s2 ABDOMEN: Soft, nontender, nondistended EXTREMITIES: 2+ pulses, no edema. cold extremities NEUROLOGICAL: minimal gag reflex, myoclonic jerks Laboratory Results - last 24 hr 06/23/19 06/23/19 06/23/19 12:00 12:00 14:00 WBC 13.5 H RBC 4.62 Hgb 15.3 Hct 46.0 H MCV 99.4 H MCH 33.0 MCHC 33.2 RDW 13.8 Plt Count 222 MPV 9.6 Absolute Neuts (auto) 12.8 H Neutrophils % 94.9 H Neutrophils % (Manual) 90.2 H Band Neutrophils % 6.2 Lymphocytes % 1.9 L D Lymphocytes % (Manual) 2.7 L D Monocytes % 2.9 L Monocytes % (Manual) 1 L D Eosinophils % 0.0 D Eosinophils % (Manual) 0.0 D Basophils % 0.3 Basophils % (Manual) 0.0 Myelocytes % (Man) 0 D Promyelocytes % (Man) 0 Blast Cells % (Manual) 0 Nucleated RBC % 0 Metamyelocytes 0 Hypochromia 0 Platelet Estimate Normal Polychromasia 0 Poikilocytosis 0 Anisocytosis 0 Microcytosis 0 Macrocytosis 0 PT with INR INR PTT (Actin FS) Sodium 128 L Potassium 4.3 Chloride 96 L Carbon Dioxide 22 Anion Gap 10 BUN 13.9 Creatinine 0.9 Est GFR (CKD-EPI)AfAm 65.70 Est GFR (CKD-EPI)NonAf 56.69 Random Glucose 241 H Lactic Acid 4.2 H* Calcium 5.4 L* Phosphorus Magnesium Total Bilirubin 1.6 H AST 4491 H ALT 3833 H Alkaline Phosphatase 139 H Creatine Kinase 2641 H Creatine Kinase Index 2.1 CK-MB (CK-2) 56.0 H Troponin I 1.61 H* Total Protein 6.0 L Albumin 3.0 L 06/23/19 06/24/19 06/24/19 14:00 05:25 05:25 WBC 17.1 H RBC 4.03 Hgb 13.1 Hct 39.4 MCV 97.9 H MCH 32.5 MCHC 33.2 RDW 13.3 Plt Count 168 D MPV 9.6 Absolute Neuts (auto) 15.6 H Neutrophils % 90.9 H Neutrophils % (Manual) Band Neutrophils % Lymphocytes % 3.4 L D Lymphocytes % (Manual) Monocytes % 5.5 D Monocytes % (Manual) Eosinophils % 0.0 Eosinophils % (Manual) Basophils % 0.2 Basophils % (Manual) Myelocytes % (Man) Promyelocytes % (Man) Blast Cells % (Manual) Nucleated RBC % 0 Metamyelocytes Hypochromia Platelet Estimate Polychromasia Poikilocytosis Anisocytosis Microcytosis Macrocytosis PT with INR 10.60 INR 0.90 PTT (Actin FS) 37.5 H Sodium 138 Potassium 4.1 Chloride 108 H Carbon Dioxide 19 L Anion Gap 11 BUN 21.2 H Creatinine 1.0 Est GFR (CKD-EPI)AfAm 57.84 Est GFR (CKD-EPI)NonAf 49.91 Random Glucose 96 Lactic Acid Calcium 7.8 L Phosphorus 5.1 H Magnesium 2.0 Total Bilirubin 0.6 AST 180 H ALT 134 H Alkaline Phosphatase 114 Creatine Kinase Creatine Kinase Index CK-MB (CK-2) Troponin I 0.76 H* Total Protein 5.5 L Albumin 3.1 L 06/24/19 05:25 WBC RBC Hgb Hct MCV MCH MCHC RDW Plt Count MPV Absolute Neuts (auto) Neutrophils % Neutrophils % (Manual) Band Neutrophils % Lymphocytes % Lymphocytes % (Manual) Monocytes % Monocytes % (Manual) Eosinophils % Eosinophils % (Manual) Basophils % Basophils % (Manual) Myelocytes % (Man) Promyelocytes % (Man) Blast Cells % (Manual) Nucleated RBC % Metamyelocytes Hypochromia Platelet Estimate Polychromasia Poikilocytosis Anisocytosis Microcytosis Macrocytosis PT with INR INR PTT (Actin FS) Sodium Potassium Chloride Carbon Dioxide Anion Gap BUN Creatinine Est GFR (CKD-EPI)AfAm Est GFR (CKD-EPI)NonAf Random Glucose Lactic Acid 2.7 H* Calcium Phosphorus Magnesium Total Bilirubin AST ALT Alkaline Phosphatase Creatine Kinase Creatine Kinase Index CK-MB (CK-2) Troponin I Total Protein Albumin Active Medications Generic Name Dose Route Start Last Admin Trade Name Freq PRN Reason Stop Dose Admin Albuterol Sulfate 1 amp 06/23/19 05:06 Ventolin 0.083% Nebulizer Soln - NEB RQID PRN SHORT OF BREATH/WHEEZING Albuterol/Ipratropium 1 amp 06/23/19 08:00 06/24/19 11:58 Duoneb - NEB 1 amp RQID MARISSA Administration Chlorhexidine Gluconate 1 applic 06/23/19 22:00 06/23/19 22:07 Hibiclens For Decolonization - TP 1 applic HS MARISSA Administration Enoxaparin Sodium 40 mg 06/23/19 10:00 06/24/19 09:32 Lovenox - SQ 40 mg DAILY MARISSA Administration Sodium Chloride 1,000 mls @ 75 mls/hr 06/23/19 07:00 06/24/19 09:00 Normal Saline - IV 75 mls/hr ASDIR MARISSA Administration Sodium Chloride 1,000 mls @ 75 mls/hr 06/23/19 12:30 06/23/19 12:30 Normal Saline - IV 75 mls/hr ASDIR MARISSA Administration Propofol 1,000,000 mcg in 100 mls @ 1.157 mls/hr 06/23/19 12:30 06/24/19 08: 50 Diprivan - IVPB 0 mcg/kg/min TITR MARISSA 0 mls/hr Titration Protocol 5 MCG/KG/MIN Fentanyl 500 mcg/ Dextrose 100 mls @ 10 mls/hr 06/23/19 17:30 06/24/19 08:50 IVPB 06/24/19 17:29 0 mcg/hr TITR MARISSA 0 mls/hr Titration 50 MCG/HR Methylprednisolone Sodium Succinate 40 mg 06/23/19 10:00 06/24/19 09:32 Solu-Medrol - IVPUSH 40 mg DAILY MARISSA Administration Mupirocin 1 applic 06/23/19 10:00 06/24/19 09:32 Bactroban Ointment (For Decolonization) - NS 06/28/19 09:59 1 applic BID MARISSA Administration Pantoprazole Sodium 40 mg 06/23/19 21:15 06/24/19 09:32 Protonix Iv IVPUSH 40 mg DAILY MARISSA Administration ASSESSMENT/PLAN: 88 y/o/f with PMH of COPD, HLD, bladder CA (s/p BCG washout and partial HYS), and diverticulitis. Presented to [facility] ER with labored breathing around midnight 06/23, lost consciousness and became pulseless. ROSC was achieved after 20 minutes of CPR. Patient intubated and sedated. #Neuro - intubated, sedated, on Fentanyl drip - Head CT pending - R/o Anoxic brain injury (myoclonic jerks on examination) #Cardio - S/p ROSC, Hypothermia protocol discontinued - Trop 1.61 -> 0.76 - LA downtrending, last at 2.7 - Echo: Normal EF. Moderate to severe dilation of RV. #Pulm - Intubated for respiratory support - Hx of COPD, continue Duonebs, Albuterol PRN - Continue Solu-Medrol 40 QD - CXR: No acute pathology noted - sedated for vent synchrony - Repeat ABG and adjust vent settings as appropriate #GI - NPO while intubated, may consider tube feeds if intubation is prolonged - AST/ALT 180/134 likely 2/2 to ischemic injury #ID - WBC 9.1 -> 12.2 -> 13.5 -> 17.1. continue to trend - Patient still hypothermic - Vanc x1, Zosyn x1 for empiric coverage - Blood, urine legionella, urine cx negative - Sputum culture pending organism - Influenza negative #Prophylaxis - SCDs - Lovenox - Protonix #FEN - Calcium corrected for albumin at 8.5 - monitor and replete lytes as needed - NS @75mls/hr #Disposition - continue ICU monitoring - Spoke with Grandjodi, explained that prognosis is poor. Continue discussion on goals of care. - Full code Visit type - Emergency Visit Emergency Visit: Yes ED Registration Date: 06/23/19 Care time: The patient presented to the Emergency Department on the above date and was hospitalized for further evaluation of their emergent condition. - New Patient This patient is new to me today: No - Critical Care Critical Care patient: Yes Total Critical Care Time (in minutes): 36 Critical Care Statement: The care of this patient involved high complexity decision making to prevent further life threatening deterioration of the patient 's condition and/or to evaluate & treat vital organ system(s) failure or risk of failure. ATTENDING PHYSICIAN STATEMENT I saw and evaluated the patient. I reviewed the resident's note and discussed the case with the resident. I agree with the resident's findings and plan as documented. SUBJECTIVE: OBJECTIVE: ASSESSMENT AND PLAN:
[2019-06-24 13:53] LABS: ALLENS TEST POSITIVE; ARTERIAL BLD GAS O2 SATURATION 94.9 % (95-98); ARTERIAL BLOOD GAS BASE EXCESS -7.5 meq/l (-2-2); ARTERIAL BLOOD GAS PCO2 33.9 mmHg (35-45); ARTERIAL BLOOD GAS PO2 78.9 mmHg (80-100); ARTERIAL BLOOD GAS pH 7.33 (7.35-7.45)
[2019-06-24] MEDS ORDERED: ACETAMINOPHEN 1000 MG/100 ML VIAL (NON FORMULARY) IVPB ONE (17:17)
[2019-06-24] MEDS ORDERED: NITROGLYCERIN 25MG/D5W 250ML 25 MG/250 ML ML IVPB ONE (17:20)
[2019-06-24] MEDS: ACETAMINOPHEN 1000 MG/100 ML VIAL (NON FORMULARY) IVPB ONE ×2 (17:21→19:12)
[2019-06-24] MEDS: PROPOFOL 1,000,000 MCG/100 ML VIAL IVPB SCH (18:19)
[2019-06-24] MEDS ORDERED: LORazepam 2 MG/ML SDV VIAL IVPUSH PRN (20:51)
[2019-06-24] MEDS: CHLORHEXIDINE GLUCONATE 4% CLEANSER FOR DECOLONIZATION TP SCH (21:05)
[2019-06-25] MEDS ORDERED: ACETAMINOPHEN 1000 MG/100 ML VIAL (NON FORMULARY) IVPB PRN (01:00)
[2019-06-25 07:35] LABS: HEMATOCRIT 36.8 % (32.4-45.2); HEMOGLOBIN 12.1 GM/dL (10.7-15.3); MCH 32.4 pg (25.7-33.7); MEAN CELL VOLUME 98.1 fl (80-96); MEAN PLT VOLUME 9.7 fl (7.5-11.1); PLATELET COUNT 159 K/MM3 (134-434); RBC 3.75 M/mm3 (3.60-5.2)
[2019-06-25] MEDS: SODIUM CHLORIDE 1,000 ML IV SCH ×2 (07:44→14:10)
[2019-06-25] MEDS: ALBUTEROL SO4 2.5/IPRATROPIUM 0.5 INH SOL 3 ML VIAL.NEB. NEB SCH ×4 (08:12→20:30)
[2019-06-25 08:16] LABS: ALBUMIN 2.7 g/dl (3.4-5.0); BILIRUBIN,TOTAL 0.6 mg/dL (0.2-1); BLOOD UREA NITROGEN 26.7 mg/dL (7-18); CALCIUM 8.1 mg/dL (8.5-10.1); CREATININE 1.4 mg/dL (0.55-1.3); MAGNESIUM 2.2 mg/dL (1.8-2.4); PHOSPHOROUS 4.3 mg/dL (2.5-4.9); POTASSIUM 4.4 mmol/L (3.5-5.1); TOT PROT 5.1 g/dl (6.4-8.2)
--- NOTE | 2019-06-25 08:23 | PN ---
Progress Note (short form) - Note Progress Note: NEUROSURGERY CONSULT Chart reviewed CT reviewed h/o asthma/COPD, HTN, HLD, bladder ca, diverticular disease was found apneic and pulseless by her grandson. Shortness of breath and wheezing at home. Lost consciousness just prior to being transported by her grandson to the ER. Full cardiopulmonary resuscitation begun when patient arrived in the ER. 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
[2019-06-25] MEDS: levETIRAcetam 500 MG/5 ML INJECTION VIAL IVPB SCH ×2 (09:11→21:35)
[2019-06-25] MEDS: PANTOPRAZOLE SODIUM 40 MG VIAL IVPUSH SCH (09:12)
[2019-06-25] MEDS: MUPIROCIN 2% TOPICAL OINTMENT FOR DECOLONIZATION NS SCH ×2 (09:12→21:35)
[2019-06-25] MEDS: ENOXAPARIN NA (PORCINE) 40 MG/0.4 ML DISP.SYRIN SQ SCH (09:13)
[2019-06-25 09:17] LABS: ARTERIAL BLD GAS O2 SATURATION 94.5 % (95-98); ARTERIAL BLOOD GAS BASE EXCESS -6.7 meq/l (-2-2); ARTERIAL BLOOD GAS PO2 79.9 mmHg (80-100)
--- NOTE | 2019-06-25 10:11 | CONS ---
DATE OF CONSULTATION: 06/25/2019 CHIEF COMPLAINT: Dyspnea with altered mental status and loss of consciousness. HISTORY OF PRESENT ILLNESS: Patient is an 88-year-old female with history of asthma/COPD, hypertension, hyperlipidemia, bladder CA and diverticular disease, who was found by her grandson almost 2 days ago to be apneic and pulseless. She was wheezing at the time. She lost consciousness just prior to being transported by her grandson to the emergency room. Full cardiopulmonary resuscitation was initiated upon her arrival to the emergency room. The patient had to be intubated, after being on propofol and fentanyl. The examination was performed with the ICU team at the bedside. There was no witnessed seizure activity. There is no fever presently. PAST MEDICAL HISTORY: Significant for bladder cancer, COPD, asthma, hypertension, hypercholesterolemia, diverticular disease. MEDICATIONS: Currently include Decadron, Solu-Medrol, Bactroban, Lovenox, Ativan, albuterol, propofol and fentanyl, as well as Protonix. ALLERGIES: There is no known drug allergy. FAMILY HISTORY: Noncontributory. SOCIAL HISTORY: The patient lives at home with her family. She is not working. REVIEW OF SYSTEMS: Otherwise negative for other major constitutional, head and neck, cardiovascular, pulmonary, gastrointestinal, genitourinary, endocrinological, neurological or psychological problems, according to review of the chart. PHYSICAL EXAMINATION: Vital Signs: Temperature is 97.3, Tmax 99.3. Blood pressure is 101/69, with pulse rate of 106. O2 saturation is 98% on 30%. HEENT: Examination shows her to be normocephalic, atraumatic. Neck: Supple. Heart: Coronary examination demonstrated tachycardia. Lungs: Decreased breath sounds at the bases. Abdomen: Benign. Extremities: There are no signs of DVT. Neurologic: She is intubated and sedated. She does not follow commands. Cranial nerve examination shows pinpoint pupil, which is laterally and superiorly deviated on the right. She has no gag on examination. There are no doll's eyes. Motor examination shows no movement to pain or voice. Sensory examination is difficult to assess. Deep tendon reflexes are hyporeflexic throughout. Toes are downgoing. LABORATORY EXAMINATION: INR 0.9, PTT 37.5. White blood cell count 14 ( initially was 9.1), hemoglobin 12.1, platelet count 159,000. Serum sodium 141, potassium 4.4 , BUN 26.7, creatinine 1.4. Lactic acid initially was 3.7 and then 4.2 and then 2.7. LFTs were significantly elevated initially, in the 4000 range and subsequently trended down significantly. Troponin was 1.61. IMAGING: CT scan of the head preliminary reading shows a large left BOAZ-MCA distribution ischemic zone. There is mass effect on the lateral ventricle with [id number] shift of about 5 mm. There is no significant hemorrhagic component. IMPRESSION: 1. Status post cardiopulmonary arrest, with full resuscitation. 2. Computed tomography scan evidence of extensive BOAZ and MCA stroke with mass effect and 5-mm shift. 3. Asthma/chronic obstructive pulmonary disease. 4. Hypertension. 5. Hypercholesterolemia. 6. History of bladder carcinoma. RECOMMENDATIONS: Patient presented over 48 hours ago with acute onset of altered mental status and significant respiratory distress. She was in full cardiopulmonary arrest and underwent resuscitation by report. Her current neurological status does not demonstrate any significant discernible neurological function. Granted, she is sedated and sedation could be weaned of somewhat to assess her full neurological status. Given the extent of the MCA stroke as well as BOAZ stroke in her dominant hemisphere, the prognosis is very poor in his elderly lady who has undergone full resuscitation. Aggressive neurosurgical intervention (such as decompressive craniectomy) is not recommended under these circumstances. Keppra is added for seizure prophylaxis. I discussed the above with the ICU team at the bedside. GIGI FRYE M.D. TALYA/[id number] MTDD
[2019-06-25] MEDS: DEXAMETHASONE SOD PHOSPHATE 10 MG/1 ML VIAL IVPUSH SCH ×2 (10:59→17:36)
--- NOTE | 2019-06-25 11:10 | PN ---
Teaching Attending Note Name of Resident: Kevon Ferrer ATTENDING PHYSICIAN STATEMENT I saw and evaluated the patient. I reviewed the resident's note and discussed the case with the resident. I agree with the resident's findings and plan as documented. SUBJECTIVE: Patient seen and examined in the ICU. Remains intubated. Remains off sedation but minimally responsive. No Pressors. Intake & Output 06/22/19 06/23/19 06/24/19 06/25/19 23:59 23:59 23:59 23:59 Intake Total 5349 2390 1055 Output Total 3565 650 400 Balance 1784 1740 655 Weight 85 lb 84 lb 6.4 oz Last Vital Signs Temp Pulse Resp BP Pulse Ox 99.7 F H 108 H 17 110/72 98 06/25/19 10:00 06/25/19 10:00 06/25/19 10:00 06/25/19 10:00 06/25/19 09:00 Active Medications Acetaminophen (Ofirmev Injection -) 750 mg IVPB Q6H PRN PRN Reason: FEVER Albuterol Sulfate (Ventolin 0.083% Nebulizer Soln -) 1 amp NEB RQID PRN PRN Reason: SHORT OF BREATH/WHEEZING Albuterol/Ipratropium (Duoneb -) 1 amp NEB RQID MARISSA Last Admin: 06/25/19 08:12 Dose: 1 amp Chlorhexidine Gluconate (Hibiclens For Decolonization -) 1 applic TP HS MARISSA Last Admin: 06/24/19 21:05 Dose: 1 applic Dexamethasone Sodium Phosphate (Decadron Injection -) 10 mg IVPUSH Q8H-IV MARISSA Last Admin: 06/25/19 10:59 Dose: 10 mg Sodium Chloride (Normal Saline -) 1,000 mls @ 75 mls/hr IV ASDIR MARISSA Last Admin: 06/25/19 07:44 Dose: 75 mls/hr Sodium Chloride (Normal Saline -) 1,000 mls @ 75 mls/hr IV ASDIR MARISSA Last Admin: 06/24/19 14:00 Dose: 75 mls/hr Propofol (Diprivan -) 1,000,000 mcg in 100 mls @ 1.157 mls/hr IVPB TITR MARISSA; Protocol Last Admin: 06/24/19 18:19 Dose: 12.5 mcg/kg/min, 2.892 mls/hr Fentanyl 500 mcg/ Dextrose 100 mls @ 5 mls/hr IVPB TITR [facility]; Protocol Stop: 06/25/19 20:59 Last Admin: 06/24/19 23:11 Dose: 50 mcg/hr, 10 mls/hr Levetiracetam (Keppra Injection -) 500 mg IVPB BID [facility] Last Admin: 06/25/19 09:11 Dose: 500 mg Lorazepam (Ativan Injection -) 2 mg IVPUSH Q12H PRN PRN Reason: SHIVERING Stop: 06/25/19 20:50 Mupirocin (Bactroban Ointment (For Decolonization) -) 1 applic NS BID [facility] Stop: 06/28/19 09:59 Last Admin: 06/25/19 09:12 Dose: 1 applic Pantoprazole Sodium (Protonix Iv) 40 mg IVPUSH DAILY [facility] Last Admin: 06/25/19 09:12 Dose: 40 mg Gen: intubated, minimally responsive Heart: RRR Lung: decreased breath sounds at the bases Abd: soft, nontender Ext: no edema Laboratory Results - last 24 hr 06/24/19 06/25/19 06/25/19 13:38 05:45 05:45 WBC 14.0 H RBC 3.75 Hgb 12.1 Hct 36.8 MCV 98.1 H MCH 32.4 MCHC 33.0 RDW 14.0 Plt Count 159 MPV 9.7 Anticoagulation Therapy No Result Required. Puncture Site Right radial ABG pH 7.33 L ABG pCO2 at Pt Temp 33.9 L ABG pO2 at Pt Temp 78.9 L ABG HCO3 17.2 L ABG O2 Sat (Measured) 94.9 L ABG O2 Content 17.4 ABG Base Excess -7.5 L Giovani Test Positive O2 Delivery Device 840 vent Oxygen Flow Rate 30% Vent Mode A/c Vent Rate 14 Mechanical Rate Yes PEEP 5.0 Pressure Support Vent 400 Sodium 141 Potassium 4.4 Chloride 112 H Carbon Dioxide 20 L Anion Gap 9 BUN 26.7 H Creatinine 1.4 H Est GFR (CKD-EPI)AfAm 38.51 Est GFR (CKD-EPI)NonAf 33.23 Random Glucose 102 Calcium 8.1 L Phosphorus 4.3 Magnesium 2.2 Total Bilirubin 0.6 AST 132 H ALT 95 H Alkaline Phosphatase 98 Total Protein 5.1 L Albumin 2.7 L 06/25/19 08:57 WBC RBC Hgb Hct MCV MCH MCHC RDW Plt Count MPV Anticoagulation Therapy No Result Required. Puncture Site Right radial ABG pH 7.30 L ABG pCO2 at Pt Temp 39.0 ABG pO2 at Pt Temp 79.9 L ABG HCO3 18.7 L ABG O2 Sat (Measured) 94.5 L ABG O2 Content 15.5 ABG Base Excess -6.7 L Giovani Test No Result Required. O2 Delivery Device No Result Required. Oxygen Flow Rate 30 Vent Mode No Result Required. Vent Rate No Result Required. Mechanical Rate No Result Required. PEEP 5.0 Pressure Support Vent No Result Required. 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 Trach with chronic support versus Compassionate extubation. Dr Day Critical care time spent in reviewing chart, evaluating patient and formulating plan 35 min
--- NOTE | 2019-06-25 11:11 | PN ---
Physical Exam: SUBJECTIVE: Patient seen and examined. Intubated. Sedated. Spoke with family with updates on patient's clinical condition and discussed goals of care. Family stated they do not believe patient would have wanted to have a trach and PEG placed. Family will discuss with other relatives on further goals of care. OBJECTIVE: Vital Signs Period Temp Pulse Resp BP Sys/Vila Pulse Ox Last 24 Hr 97.3 F-979 F 60-129 11-17 101-130/67-89 96-100 GENERAL: intubated, sedated HEAD: Normal with no signs of trauma. EYES: pupils non reactive. lateral gaze. no corneal reflex ENT: dry mucous membranes NECK: Trachea midline LUNGS: decreased breath sounds bilaterally, no wheezing, no accessory muscle use HEART: RRR, s1, s2 ABDOMEN: Soft, nontender, nondistended EXTREMITIES: 2+ pulses, warm, well-perfused, no edema. NEUROLOGICAL: negative babinski on right foot, minimal flexion of left foot on babinski test. no gag reflex Laboratory Results - last 24 hr 06/24/19 06/25/19 06/25/19 13:38 05:45 05:45 WBC 14.0 H RBC 3.75 Hgb 12.1 Hct 36.8 MCV 98.1 H MCH 32.4 MCHC 33.0 RDW 14.0 Plt Count 159 MPV 9.7 Anticoagulation Therapy No Result Required. Puncture Site Right radial ABG pH 7.33 L ABG pCO2 at Pt Temp 33.9 L ABG pO2 at Pt Temp 78.9 L ABG HCO3 17.2 L ABG O2 Sat (Measured) 94.9 L ABG O2 Content 17.4 ABG Base Excess -7.5 L Giovani Test Positive O2 Delivery Device 840 vent Oxygen Flow Rate 30% Vent Mode A/c Vent Rate 14 Mechanical Rate Yes PEEP 5.0 Pressure Support Vent 400 Sodium 141 Potassium 4.4 Chloride 112 H Carbon Dioxide 20 L Anion Gap 9 BUN 26.7 H Creatinine 1.4 H Est GFR (CKD-EPI)AfAm 38.51 Est GFR (CKD-EPI)NonAf 33.23 Random Glucose 102 Calcium 8.1 L Phosphorus 4.3 Magnesium 2.2 Total Bilirubin 0.6 AST 132 H ALT 95 H Alkaline Phosphatase 98 Total Protein 5.1 L Albumin 2.7 L 06/25/19 08:57 WBC RBC Hgb Hct MCV MCH MCHC RDW Plt Count MPV Anticoagulation Therapy No Result Required. Puncture Site Right radial ABG pH 7.30 L ABG pCO2 at Pt Temp 39.0 ABG pO2 at Pt Temp 79.9 L ABG HCO3 18.7 L ABG O2 Sat (Measured) 94.5 L ABG O2 Content 15.5 ABG Base Excess -6.7 L Giovani Test No Result Required. O2 Delivery Device No Result Required. Oxygen Flow Rate 30 Vent Mode No Result Required. Vent Rate No Result Required. Mechanical Rate No Result Required. PEEP 5.0 Pressure Support Vent No Result Required. Sodium Potassium Chloride Carbon Dioxide Anion Gap BUN Creatinine Est GFR (CKD-EPI)AfAm Est GFR (CKD-EPI)NonAf Random Glucose Calcium Phosphorus Magnesium Total Bilirubin AST ALT Alkaline Phosphatase Total Protein Albumin Active Medications Generic Name Dose Route Start Last Admin Trade Name Freq PRN Reason Stop Dose Admin Acetaminophen 750 mg 06/25/19 01:00 Ofirmev Injection - IVPB Q6H PRN FEVER Albuterol Sulfate 1 amp 06/23/19 05:06 Ventolin 0.083% Nebulizer Soln - NEB RQID PRN SHORT OF BREATH/WHEEZING Albuterol/Ipratropium 1 amp 06/23/19 08:00 06/25/19 08:12 Duoneb - NEB 1 amp RQID MARISSA Administration Chlorhexidine Gluconate 1 applic 06/23/19 22:00 06/24/19 21:05 Hibiclens For Decolonization - TP 1 applic HS MARISSA Administration Dexamethasone Sodium Phosphate 10 mg 06/25/19 11:00 06/25/19 10:59 Decadron Injection - IVPUSH 10 mg Q8H-IV MARISSA Administration Sodium Chloride 1,000 mls @ 75 mls/hr 06/23/19 07:00 06/25/19 07:44 Normal Saline - IV 75 mls/hr ASDIR MARISSA Administration Sodium Chloride 1,000 mls @ 75 mls/hr 06/23/19 12:30 06/24/19 14:00 Normal Saline - IV 75 mls/hr ASDIR MARISSA Administration Propofol 1,000,000 mcg in 100 mls @ 1.157 mls/hr 06/23/19 12:30 06/24/19 18: 19 Diprivan - IVPB 12.5 mcg/kg/min TITR MARISSA 2.892 mls/hr Administration Protocol 5 MCG/KG/MIN Fentanyl 500 mcg/ Dextrose 100 mls @ 5 mls/hr 06/24/19 21:00 06/24/19 23:11 IVPB 06/25/19 20:59 50 mcg/hr TITR MARISSA 10 mls/hr Administration Protocol 25 MCG/HR Levetiracetam 500 mg 06/25/19 10:00 06/25/19 09:11 Keppra Injection - IVPB 500 mg BID MARISSA Administration Lorazepam 2 mg 06/24/19 20:51 Ativan Injection - IVPUSH 06/25/19 20:50 Q12H PRN SHIVERING Mupirocin 1 applic 06/23/19 10:00 06/25/19 09:12 Bactroban Ointment (For Decolonization) - NS 06/28/19 09:59 1 applic BID MARISSA Administration Pantoprazole Sodium 40 mg 06/23/19 21:15 06/25/19 09:12 Protonix Iv IVPUSH 40 mg DAILY MARISSA Administration ASSESSMENT/PLAN: 88 y/o/f with PMH of COPD, HLD, bladder CA (s/p BCG washout and partial HYS), and diverticulitis. Presented to [facility] ER with labored breathing around midnight 06/23, lost consciousness and became pulseless. ROSC was achieved after 20 minutes of CPR. Patient intubated and sedated. 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 the infarct involves the left temporal, frontal, parietal, and lateral aspect of the left occiptal lobe with diffuse cortical effacement on the left, mass effect and shift of the midline structures towards the right side approximately 1cm and subfalcine herniation. - NSX consulted: Given age and extent of ischemic stroke as well as need for full resuscitation prognosis is very poor. Do not recommend more aggressive neurosurgical tx. - Neurology consulted, appreciate recs - Started on Decadron Q8hr #Cardio - S/p ROSC, Hypothermia protocol discontinued - Trop 1.61 -> 0.76 - Echo: Normal EF. Moderate to severe dilation of RV. #Pulm - Intubated for respiratory support - Hx of COPD, continue Duonebs, Albuterol PRN - CXR: No acute pathology noted - sedated for vent synchrony - Repeat ABG and adjust vent settings as appropriate - maintain O2 saturation >90% #GI - NPO while intubated, may consider tube feeds if intubation is prolonged - AST/ALT 180/134 -> 132/95. Likely 2/2 to ischemic injury #ID - WBC 9.1 -> 12.2 -> 13.5 -> 17.1 -> 14 continue to trend - Vanc x1, Zosyn x1 for empiric coverage - Blood, urine legionella, urine cx negative - Sputum culture with presumptive MSSA - Influenza negative #Prophylaxis - SCDs - Protonix #FEN - Calcium corrected for albumin at 9.7 - monitor and replete lytes as needed - LR @75mls/hr #Disposition - continue ICU monitoring - Spoke with family, explained clinical condition. Family stated that patient would not have wanted to peg, trach placement. Family will continue to discuss further goals of care. - Full code Visit type - Emergency Visit Emergency Visit: Yes ED Registration Date: 06/23/19 Care time: The patient presented to the Emergency Department on the above date and was hospitalized for further evaluation of their emergent condition. - New Patient This patient is new to me today: No - Critical Care Critical Care patient: Yes Total Critical Care Time (in minutes): 36 Critical Care Statement: The care of this patient involved high complexity decision making to prevent further life threatening deterioration of the patient 's condition and/or to evaluate & treat vital organ system(s) failure or risk of failure. ATTENDING PHYSICIAN STATEMENT I saw and evaluated the patient. I reviewed the resident's note and discussed the case with the resident. I agree with the resident's findings and plan as documented. SUBJECTIVE: OBJECTIVE: ASSESSMENT AND PLAN:
--- NOTE | 2019-06-25 12:17 | PN ---
Progress Note, Physician Chief Complaint: patient seen and examined in icu intubated no sedation no pressors - Current Medication List Current Medications: Active Medications Acetaminophen (Ofirmev Injection -) 750 mg IVPB Q6H PRN PRN Reason: FEVER Albuterol Sulfate (Ventolin 0.083% Nebulizer Soln -) 1 amp NEB RQID PRN PRN Reason: SHORT OF BREATH/WHEEZING Albuterol/Ipratropium (Duoneb -) 1 amp NEB RQID MARISSA Last Admin: 06/25/19 12:09 Dose: 1 amp Chlorhexidine Gluconate (Hibiclens For Decolonization -) 1 applic TP HS MARISSA Last Admin: 06/24/19 21:05 Dose: 1 applic Dexamethasone Sodium Phosphate (Decadron Injection -) 10 mg IVPUSH Q8H-IV MARISSA Last Admin: 06/25/19 10:59 Dose: 10 mg Sodium Chloride (Normal Saline -) 1,000 mls @ 75 mls/hr IV ASDIR MARISSA Last Admin: 06/25/19 07:44 Dose: 75 mls/hr Sodium Chloride (Normal Saline -) 1,000 mls @ 75 mls/hr IV ASDIR MARISSA Last Admin: 06/24/19 14:00 Dose: 75 mls/hr Propofol (Diprivan -) 1,000,000 mcg in 100 mls @ 1.157 mls/hr IVPB TITR MARISSA; Protocol Last Admin: 06/24/19 18:19 Dose: 12.5 mcg/kg/min, 2.892 mls/hr Fentanyl 500 mcg/ Dextrose 100 mls @ 5 mls/hr IVPB TITR MARISSA; Protocol Stop: 06/25/19 20:59 Last Admin: 06/24/19 23:11 Dose: 50 mcg/hr, 10 mls/hr Levetiracetam (Keppra Injection -) 500 mg IVPB BID MARISSA Last Admin: 06/25/19 09:11 Dose: 500 mg Lorazepam (Ativan Injection -) 2 mg IVPUSH Q12H PRN PRN Reason: SHIVERING Stop: 06/25/19 20:50 Mupirocin (Bactroban Ointment (For Decolonization) -) 1 applic NS BID MARISSA Stop: 06/28/19 09:59 Last Admin: 06/25/19 09:12 Dose: 1 applic Pantoprazole Sodium (Protonix Iv) 40 mg IVPUSH DAILY MARISSA Last Admin: 06/25/19 09:12 Dose: 40 mg - Objective Vital Signs: Vital Signs Temperature 99.7 F H 06/25/19 10:00 Pulse Rate 99 H 06/25/19 12:00 Respiratory Rate 14 06/25/19 12:07 Blood Pressure 98/67 06/25/19 12:00 O2 Sat by Pulse Oximetry (%) 98 06/25/19 09:00 Constitutional: Yes: Calm Neck: Yes: Other (intubated) Cardiovascular: Yes: Regular Rate and Rhythm, S1, S2 Respiratory: Yes: Mechanically Ventilated Gastrointestinal: Yes: Normal Bowel Sounds, Soft Edema: No Labs: CBC, BMP 06/25/19 05:45 06/25/19 05:45 INR, PTT INR 0.90 (0.83-1.09) 06/23/19 14:00 Problem List - Problems (1) Cardiac arrest Assessment/Plan: hypothermia resolved intubated on AC mode off sedation full code CT head shows left middle cerebral and anterior cerebral artery distribution with a shift decadron q8hr CTA done no PE noted on lovenox echo left ventricle ejection fraction and thickness and function normal medrol stopped RUDI consult appreciated Code(s): I46.9 - CARDIAC ARREST, CAUSE UNSPECIFIED (2) Respiratory failure Assessment/Plan: intubated off sedation AC mode Code(s): J96.90 - RESPIRATORY FAILURE, UNSP, UNSP W HYPOXIA OR HYPERCAPNIA (3) Transaminitis Assessment/Plan: lft much improved will continue to ,monitor elevation post likely secondary to cardiac arrest Code(s): R74.0 - NONSPEC ELEV OF LEVELS OF TRANSAMNS & LACTIC ACID DEHYDRGNSE (4) Leukocytosis Assessment/Plan: trending down will continue to monitor Microbiology 06/23/19 05:30 Urine - Urine [place] Legionella Antigen - Final 06/23/19 05:30 Urine - Urine [place] Streptococcus pneumoniae Antigen (M - Final 06/23/19 05:30 Urine - Urine - Catheterized Urine Culture - Final NO GROWTH OBTAINED 06/23/19 05:35 Blood - Peripheral Venous Blood Culture - Preliminary NO GROWTH OBTAINED AFTER 24 HOURS, INCUBATION TO CONTINUE FOR 4 DAYS. sputum culture pending Code(s): D72.829 - ELEVATED WHITE BLOOD CELL COUNT, UNSPECIFIED
[2019-06-25 12:20] VITALS: BMI 16.9
[2019-06-25] MEDS ORDERED: fentaNYL CITRATE 250 MCG/5 ML VIAL ONE (13:23)
[2019-06-25] MEDS ORDERED: LACTATED RINGERS SOLUTION 1,000 ML/1,000 ML INFUS.BAG IV SCH (17:30)
[2019-06-25] MEDS: PROPOFOL 1,000,000 MCG/100 ML VIAL IVPB SCH (17:35)
[2019-06-25] MEDS: CHLORHEXIDINE GLUCONATE 4% CLEANSER FOR DECOLONIZATION TP SCH (21:35)
--- NOTE | 2019-06-25 22:49 | CON.NEURO ---
Consult Consult Specialty:: NEUROLOGY-ANDREIA SHAVER - History of Present Illness History of Present Illness: 8-year-old woman with a history of asthma/COPD, HTN, HLD, distant bladder ca s/ p BCG washout and partial HYS, diverticular disease was carried into the ER Apneic and pulseless by her grandson: She had severe shortness of breath and wheezing at home this evening. Patient lost consciousness just prior to being transported by her grandson to the ER (approximately 10 minutes away). Full cardiopulmonary resuscitation begun when patient arrived in the ER. According to the grandson, patient had exacerbation of her COPD for the last several days (cough, recurrent wheezing). She had apparently run out of some of her medications. She was seen by her PMD (Dr. Lee) yesterday and restarted on all her medications. Remains unresponsive,Head CT- (prelim) extensive L MCA (parietal/frontal lobe) and L BOAZ (parasagittal and frontal) hypodense zone with mass effect and 5 mm shift to R; No HCP, no significant hemorrhage - Past Medical History Cardio/Vascular: Yes: HTN, Hyperlipdemia Pulmonary: Yes: Asthma, COPD Gastrointestinal: Yes: Diverticulitis ...: No - Alcohol/Substance Use Hx Alcohol Use: No History of Substance Use: reports: None - Smoking History Smoking history: Former smoker Have you smoked in the past 12 months: No If you are a former smoker, when did you quit?: at age 49 - Social History ADL: Independent History of Recent Travel: No Home Medications - Allergies Allergies/Adverse Reactions: Allergies Allergy/AdvReac Type Severity Reaction Status Date / Time lactase [From Dairy Aid] Allergy Verified 06/23/19 00:58 No Known Drug Allergies Allergy Verified 06/23/19 00:58 - Home Medications Home Medications: Ambulatory Orders Albuterol Sulfate Inhaler - [Ventolin HFA Inhaler -] 1 - 2 inh PO Q4H PRN Budesonide/Formeterol Fumarate [SYMBICORT 80/4.5mcg -] 1 inh PO BID PRN Rosuvastatin Calcium [Crestor] 0 mg PO DAILY 07/22/18 Amlodipine Besylate [Norvasc -] 5 mg PO DAILY 09/22/18 Physical Exam-Neuro Vital Signs: Vital Signs Temperature 99.6 F 06/25/19 20:00 Pulse Rate 91 H 06/25/19 20:00 Respiratory Rate 14 06/25/19 21:02 Blood Pressure 116/76 06/25/19 20:00 O2 Sat by Pulse Oximetry (%) 97 06/25/19 21:55 Labs: CBC, BMP 06/25/19 05:45 06/25/19 05:45 INR, PTT INR 0.90 (0.83-1.09) 06/23/19 14:00 - Neuro Exam Level Of Consciousness: Yes: Comatose Eyes: Yes: Other (Bilat 2mm, no response to light) Mini Mental Exam: No response to all stimulii Cranial Nerves II-XII Intact: No (Absent Doll's eyemovements, +sluggish corneals ) Gag: Absent DTR's: 0 Left Bicep, 0 Right Bicep, 0 Left Tricep, 0 Right Tricep, 0 Left Brachioradialis, 0 Right Brachioradialis, 0 Left Achilles, 0 Right Achilles Response to light touch: Normal, Abnormal (no response to all stimulii) Motor Strength: 0/5: Left Arm, Right Arm, Left Leg, Right Leg Gait: Deferred Assessment/Plan pt. 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 She has only minimal corneal reflexes present. Her prognosis is poor. Supportive care, hyperventilate to reduce ICP, keep hob at 30 degrees.
[2019-06-26] MEDS: DEXAMETHASONE SOD PHOSPHATE 10 MG/1 ML VIAL IVPUSH SCH ×3 (02:00→18:00)
[2019-06-26] MEDS ORDERED: fentaNYL CITRATE 250 MCG/5 ML VIAL ONE (03:33)
[2019-06-26] MEDS ORDERED: LORazepam 2 MG/ML SDV VIAL IVPUSH PRN (03:50)
[2019-06-26] MEDS: FENTANYL INJECTION 500 MCG in DEXTROSE 5%-WATER - 90 ML IVPB SCH (03:55)
[2019-06-26 07:16] LABS: HEMATOCRIT 36.4 % (32.4-45.2); HEMOGLOBIN 12.3 GM/dL (10.7-15.3); MCH 32.9 pg (25.7-33.7); MCHC 33.8 g/dl (32.0-36.0); MEAN CELL VOLUME 97.4 fl (80-96); MEAN PLT VOLUME 9.1 fl (7.5-11.1); PLATELET COUNT 168 K/MM3 (134-434); RBC 3.74 M/mm3 (3.60-5.2); RDW 13.6 % (11.6-15.6); WHITE BLOOD COUNT 9.1 K/mm3 (4.0-10.0)
[2019-06-26 07:42] LABS: ALBUMIN 2.5 g/dl (3.4-5.0); BILIRUBIN,TOTAL 0.5 mg/dL (0.2-1); BLOOD UREA NITROGEN 27.9 mg/dL (7-18); CALCIUM 8.5 mg/dL (8.5-10.1); CREATININE 1.2 mg/dL (0.55-1.3); MAGNESIUM 2.1 mg/dL (1.8-2.4); PHOSPHOROUS 3.1 mg/dL (2.5-4.9); POTASSIUM 4.4 mmol/L (3.5-5.1); TOT PROT 5.3 g/dl (6.4-8.2)
--- NOTE | 2019-06-26 07:45 | PN ---
Physical Exam: SUBJECTIVE: Patient seen and examined. Intubated and sedated. Family does not wish for trach and PEG placement. Family will discuss with other relatives on further goals of care. OBJECTIVE: Vital Signs Period Temp Pulse Resp BP Sys/Vila Pulse Ox Last 24 Hr 99 F-99.7 F 82-108 13-15 94-129/62-85 97-99 GENERAL: Patient intubated and sedated, in no acute distress. HEAD: Normal with no signs of trauma. EYES: Pupils constricted c/w fentanyl drip, extraocular movements intact, sclera anicteric, conjunctiva clear. No ptosis. ENT: Ears normal, nares patent, oropharynx clear without exudates, moist mucous membranes. NECK: Trachea midline, full range of motion, supple. LUNGS: Breath sounds equal, clear to auscultation bilaterally, no wheezes, no crackles, no accessory muscle use. HEART: Regular rate and rhythm, S1, S2 without murmur, rub or gallop. ABDOMEN: Soft, nontender, nondistended, normoactive bowel sounds, no guarding, no rebound, no hepatosplenomegaly, no masses. EXTREMITIES: 2+ pulses, warm, well-perfused, no edema. NEUROLOGICAL: +Unable to assess PSYCH: +Unable to assess SKIN: Warm, dry, normal turgor, no rashes or lesions noted Laboratory Results - last 24 hr 06/25/19 06/25/19 06/25/19 05:45 05:45 08:57 WBC 14.0 H RBC 3.75 Hgb 12.1 Hct 36.8 MCV 98.1 H MCH 32.4 MCHC 33.0 RDW 14.0 Plt Count 159 MPV 9.7 Anticoagulation Therapy No Result Required. Puncture Site Right radial ABG pH 7.30 L ABG pCO2 at Pt Temp 39.0 ABG pO2 at Pt Temp 79.9 L ABG HCO3 18.7 L ABG O2 Sat (Measured) 94.5 L ABG O2 Content 15.5 ABG Base Excess -6.7 L Giovani Test No Result Required. O2 Delivery Device No Result Required. Oxygen Flow Rate 30 Vent Mode No Result Required. Vent Rate No Result Required. Mechanical Rate No Result Required. PEEP 5.0 Pressure Support Vent No Result Required. Sodium 141 Potassium 4.4 Chloride 112 H Carbon Dioxide 20 L Anion Gap 9 BUN 26.7 H Creatinine 1.4 H Est GFR (CKD-EPI)AfAm 38.51 Est GFR (CKD-EPI)NonAf 33.23 Random Glucose 102 Calcium 8.1 L Phosphorus 4.3 Magnesium 2.2 Total Bilirubin 0.6 AST 132 H ALT 95 H Alkaline Phosphatase 98 Total Protein 5.1 L Albumin 2.7 L 06/26/19 06:40 WBC 9.1 RBC 3.74 Hgb 12.3 Hct 36.4 MCV 97.4 H MCH 32.9 MCHC 33.8 RDW 13.6 Plt Count 168 MPV 9.1 Anticoagulation Therapy Puncture Site ABG pH ABG pCO2 at Pt Temp ABG pO2 at Pt Temp ABG HCO3 ABG O2 Sat (Measured) ABG O2 Content ABG Base Excess Giovani Test O2 Delivery Device Oxygen Flow Rate Vent Mode Vent Rate Mechanical Rate PEEP Pressure Support Vent Sodium Potassium Chloride Carbon Dioxide Anion Gap BUN Creatinine Est GFR (CKD-EPI)AfAm Est GFR (CKD-EPI)NonAf Random Glucose Calcium Phosphorus Magnesium Total Bilirubin AST ALT Alkaline Phosphatase Total Protein Albumin Active Medications Generic Name Dose Route Start Last Admin Trade Name Freq PRN Reason Stop Dose Admin Acetaminophen 750 mg 06/25/19 01:00 Ofirmev Injection - IVPB Q6H PRN FEVER Albuterol Sulfate 1 amp 06/23/19 05:06 Ventolin 0.083% Nebulizer Soln - NEB RQID PRN SHORT OF BREATH/WHEEZING Albuterol/Ipratropium 1 amp 06/23/19 08:00 06/25/19 20:30 Duoneb - NEB 1 amp RQID MARISSA Administration Chlorhexidine Gluconate 1 applic 06/23/19 22:00 06/25/19 21:35 Hibiclens For Decolonization - TP 1 applic HS MARISSA Administration Dexamethasone Sodium Phosphate 10 mg 06/25/19 11:00 06/26/19 02:00 Decadron Injection - IVPUSH 10 mg Q8H-IV MARISSA Administration Propofol 1,000,000 mcg in 100 mls @ 1.157 mls/hr 06/23/19 12:30 06/25/19 17: 35 Diprivan - IVPB 12.5 mcg/kg/min TITR MARISSA 2.892 mls/hr Administration Protocol 5 MCG/KG/MIN Lactated Ringer's 1,000 ml in 1,000 mls @ 75 mls/hr 06/25/19 17:30 06/25/19 17:35 Lactated Ringers Solution IV 75 mls/hr ASDIR MARISSA Administration Fentanyl 500 mcg/ Dextrose 100 mls @ 0.2 mls/hr 06/26/19 04:00 06/26/19 03:55 IVPB 1 mcg/hr TITR MARISSA 0.2 mls/hr Administration Protocol 1 MCG/HR Levetiracetam 500 mg 06/25/19 10:00 06/25/19 21:35 Keppra Injection - IVPB 500 mg BID MARISSA Administration Lorazepam 2 mg 06/26/19 03:50 Ativan Injection - IVPUSH Q12H PRN MUSCLE SPASMS Mupirocin 1 applic 06/23/19 10:00 06/25/19 21:35 Bactroban Ointment (For Decolonization) - NS 06/28/19 09:59 1 applic BID MARISSA Administration Pantoprazole Sodium 40 mg 06/23/19 21:15 06/25/19 09:12 Protonix Iv IVPUSH 40 mg DAILY MARISSA Administration ASSESSMENT/PLAN: Ms. Mota is an 88 yo female w/ pmh of COPD, HLD, bladder CA, and diverticulitis who p/w labored breathing and LOC 06/23; found to be pulseless w / return of ROSC after 20 minutes of CPR. Patient intubated and sedated, found to have large L sided infarct on Head CT. #Neuro - intubated, sedated, on Fentanyl and propofol drip; will evaluate mental status w/ sedation vacation - Head CT: findings consistent with acute infarct involving the MCA and BOAZ territory. - NSX consulted, do not recommend more aggressive neurosurgical tx. - Neurology consulted, appreciate recs - On Decadron Q8hr #Cardio - Hypothermia protocol finished - Echo: Normal EF. Moderate to severe dilation of RV. #Pulm - Intubated and sedated for respiratory support - Hx of COPD, continue Duonebs, Albuterol PRN - Repeat ABG and adjust vent settings as appropriate - maintain O2 saturation >90% #GI - NPO while intubated, may consider tube feeds if intubation is prolonged - AST/ALT improved 112/71 recovering from acute injury #ID - WBC improved to 9.1; will continue to trend - Vanc x1, Zosyn x1 for empiric coverage - Blood, urine legionella, urine cx negative - Sputum culture with presumptive MSSA - Influenza negative #Prophylaxis - SCDs - Protonix #FEN - monitor and replete lytes as needed - LR @75mls/hr #Disposition - continue ICU monitoring - no plan for trach/PEG - Family will discuss further goals of care. - Full code Visit type - Emergency Visit Emergency Visit: Yes ED Registration Date: 06/23/19 Care time: The patient presented to the Emergency Department on the above date and was hospitalized for further evaluation of their emergent condition. - New Patient This patient is new to me today: No - Critical Care Critical Care patient: Yes Total Critical Care Time (in minutes): 37 Critical Care Statement: The care of this patient involved high complexity decision making to prevent further life threatening deterioration of the patient 's condition and/or to evaluate & treat vital organ system(s) failure or risk of failure. ATTENDING PHYSICIAN STATEMENT I saw and evaluated the patient. I reviewed the resident's note and discussed the case with the resident. I agree with the resident's findings and plan as documented. SUBJECTIVE: OBJECTIVE: ASSESSMENT AND PLAN:
--- NOTE | 2019-06-26 08:19 | PN ---
Progress Note, Physician - Current Medication List Current Medications: Active Medications Acetaminophen (Ofirmev Injection -) 750 mg IVPB Q6H PRN PRN Reason: FEVER Albuterol Sulfate (Ventolin 0.083% Nebulizer Soln -) 1 amp NEB RQID PRN PRN Reason: SHORT OF BREATH/WHEEZING Albuterol/Ipratropium (Duoneb -) 1 amp NEB RQID MARISSA Last Admin: 06/25/19 20:30 Dose: 1 amp Chlorhexidine Gluconate (Hibiclens For Decolonization -) 1 applic TP HS MARISSA Last Admin: 06/25/19 21:35 Dose: 1 applic Dexamethasone Sodium Phosphate (Decadron Injection -) 10 mg IVPUSH Q8H-IV MARISSA Last Admin: 06/26/19 02:00 Dose: 10 mg Propofol (Diprivan -) 1,000,000 mcg in 100 mls @ 1.157 mls/hr IVPB TITR [facility]; Protocol Last Admin: 06/25/19 17:35 Dose: 12.5 mcg/kg/min, 2.892 mls/hr Lactated Ringer's (Lactated Ringers Solution) 1,000 ml in 1,000 mls @ 75 mls/ hr IV ASDIR MARISSA Last Admin: 06/25/19 17:35 Dose: 75 mls/hr Fentanyl 500 mcg/ Dextrose 100 mls @ 0.2 mls/hr IVPB TITR MARISSA; Protocol Last Admin: 06/26/19 03:55 Dose: 1 mcg/hr, 0.2 mls/hr Levetiracetam (Keppra Injection -) 500 mg IVPB BID MARISSA Last Admin: 06/25/19 21:35 Dose: 500 mg Lorazepam (Ativan Injection -) 2 mg IVPUSH Q12H PRN PRN Reason: MUSCLE SPASMS Mupirocin (Bactroban Ointment (For Decolonization) -) 1 applic NS BID [facility] Stop: 06/28/19 09:59 Last Admin: 06/25/19 21:35 Dose: 1 applic Pantoprazole Sodium (Protonix Iv) 40 mg IVPUSH DAILY [facility] Last Admin: 06/25/19 09:12 Dose: 40 mg - Objective Vital Signs: Vital Signs Temperature 99 F 06/26/19 04:00 Pulse Rate 79 06/26/19 08:00 Respiratory Rate 14 06/26/19 08:00 Blood Pressure 112/77 06/26/19 08:00 O2 Sat by Pulse Oximetry (%) 99 06/26/19 00:15 Labs: CBC, BMP 06/26/19 06:40 06/26/19 06:40 INR, PTT INR 0.90 (0.83-1.09) 06/23/19 14:00
--- NOTE | 2019-06-26 08:49 | PN ---
Progress Note, Physician Chief Complaint: EVENTS REVIEWED SEDATED, INTUBATED/VENT SUPPORT - Current Medication List Current Medications: Active Medications Acetaminophen (Ofirmev Injection -) 750 mg IVPB Q6H PRN PRN Reason: FEVER Albuterol Sulfate (Ventolin 0.083% Nebulizer Soln -) 1 amp NEB RQID PRN PRN Reason: SHORT OF BREATH/WHEEZING Albuterol/Ipratropium (Duoneb -) 1 amp NEB RQID [facility] Last Admin: 06/25/19 20:30 Dose: 1 amp Chlorhexidine Gluconate (Hibiclens For Decolonization -) 1 applic TP HS [facility]SA Last Admin: 06/25/19 21:35 Dose: 1 applic Dexamethasone Sodium Phosphate (Decadron Injection -) 10 mg IVPUSH Q8H-IV [facility] Last Admin: 06/26/19 02:00 Dose: 10 mg Propofol (Diprivan -) 1,000,000 mcg in 100 mls @ 1.157 mls/hr IVPB TITR [facility]; Protocol Last Admin: 06/25/19 17:35 Dose: 12.5 mcg/kg/min, 2.892 mls/hr Lactated Ringer's (Lactated Ringers Solution) 1,000 ml in 1,000 mls @ 75 mls/ hr IV ASDIR [facility]ISSA Last Admin: 06/25/19 17:35 Dose: 75 mls/hr Fentanyl 500 mcg/ Dextrose 100 mls @ 0.2 mls/hr IVPB TITR [facility]; Protocol Last Admin: 06/26/19 03:55 Dose: 1 mcg/hr, 0.2 mls/hr Levetiracetam (Keppra Injection -) 500 mg IVPB BID [facility] Last Admin: 06/25/19 21:35 Dose: 500 mg Lorazepam (Ativan Injection -) 2 mg IVPUSH Q12H PRN PRN Reason: MUSCLE SPASMS Mupirocin (Bactroban Ointment (For Decolonization) -) 1 applic NS BID [facility] Stop: 06/28/19 09:59 Last Admin: 06/25/19 21:35 Dose: 1 applic Pantoprazole Sodium (Protonix Iv) 40 mg IVPUSH DAILY [facility] Last Admin: 06/25/19 09:12 Dose: 40 mg - Objective Vital Signs: Vital Signs Temperature 99 F 06/26/19 04:00 Pulse Rate 79 06/26/19 08:00 Respiratory Rate 14 06/26/19 08:40 Blood Pressure 112/77 06/26/19 08:00 O2 Sat by Pulse Oximetry (%) 98 06/26/19 08:00 Constitutional: Yes: Mild Distress Cardiovascular: Yes: Pulse Irregular Respiratory: Yes: Diminished, Mechanically Ventilated Gastrointestinal: Yes: Soft Genitourinary: Yes: [place] Present Edema: Yes Labs: CBC, BMP 06/26/19 06:40 06/26/19 06:40 INR, PTT INR 0.90 (0.83-1.09) 06/23/19 14:00 Problem List - Problems (1) Endotracheally intubated Code(s): Z97.8 - PRESENCE OF OTHER SPECIFIED DEVICES (2) Respiratory failure Code(s): J96.90 - RESPIRATORY FAILURE, UNSP, UNSP W HYPOXIA OR HYPERCAPNIA (3) Leukocytosis Code(s): D72.829 - ELEVATED WHITE BLOOD CELL COUNT, UNSPECIFIED (4) Cardiac arrest Code(s): I46.9 - CARDIAC ARREST, CAUSE UNSPECIFIED (5) Diverticulosis large intestine w/o perforation or abscess w/bleeding Code(s): K57.31 - DVRTCLOS OF LG INT W/O PERFORATION OR ABSCESS W BLEEDING (6) Lower GI bleed Code(s): K92.2 - GASTROINTESTINAL HEMORRHAGE, UNSPECIFIED (7) Transaminitis Code(s): R74.0 - NONSPEC ELEV OF LEVELS OF TRANSAMNS & LACTIC ACID DEHYDRGNSE Assessment/Plan VENT SUPPORT ON STEROIDS IV TAPER BOTH TOLERATED ADVANCED DIRECTIVES NEED TO BE DISCUSSED WITH FAMILY. PMD DR HICKEY, WE WILL BE COVERING I WILL ASK DR HICKEY FOR ANY CHART DOCUMENTS ON ADVANCED DIRECTIVES. ID/PULMONARY WORKUP. FULL CODE FOR NOW R/O ASPIRATION PNA WELL SEPSIS
[2019-06-26] MEDS: ALBUTEROL SO4 2.5/IPRATROPIUM 0.5 INH SOL 3 ML VIAL.NEB. NEB SCH ×4 (09:08→21:40)
--- NOTE | 2019-06-26 09:42 | PN ---
Teaching Attending Note Name of Resident: Otoniel Edward ATTENDING PHYSICIAN STATEMENT I saw and evaluated the patient. I reviewed the resident's note and discussed the case with the resident. I agree with the resident's findings and plan as documented. SUBJECTIVE: Pt seen and examined in the ICU. Remains intubated, sedated on volume assist control. No pressors. OBJECTIVE: Vital Signs Period Temp Pulse Resp BP Sys/Vila Pulse Ox Last 24 Hr 99 F-99.7 F 79-108 13-16 94-129/62-85 97-99 Intake & Output 06/23/19 06/24/19 06/25/19 06/26/19 23:59 23:59 23:59 23:59 Intake Total 5349 2390 2510.6 576.1 Output Total 3565 650 800 400 Balance 1784 1740 1710.6 176.1 Weight 38.555 kg 38.283 kg 38.102 kg 41.901 kg Gen: intubated, sedated Heart: RRR Lung: decreased breath sounds at the bases Abd: soft, nontender Ext: no edema CBC, BMP 06/26/19 06:40 06/26/19 06:40 Active Medications Acetaminophen (Ofirmev Injection -) 750 mg IVPB Q6H PRN PRN Reason: FEVER Albuterol Sulfate (Ventolin 0.083% Nebulizer Soln -) 1 amp NEB RQID PRN PRN Reason: SHORT OF BREATH/WHEEZING Albuterol/Ipratropium (Duoneb -) 1 amp NEB RQID [facility] Last Admin: 06/26/19 09:08 Dose: 1 amp Chlorhexidine Gluconate (Hibiclens For Decolonization -) 1 applic TP HS [facility] Last Admin: 06/25/19 21:35 Dose: 1 applic Dexamethasone Sodium Phosphate (Decadron Injection -) 10 mg IVPUSH Q8H-IV [facility] Last Admin: 06/26/19 02:00 Dose: 10 mg Propofol (Diprivan -) 1,000,000 mcg in 100 mls @ 1.157 mls/hr IVPB TITR [facility]; Protocol Last Titration: 06/26/19 08:30 Dose: 0 mcg/kg/min, 0 mls/hr Lactated Ringer's (Lactated Ringers Solution) 1,000 ml in 1,000 mls @ 75 mls/ hr IV ASDIR [facility]SA Last Admin: 06/25/19 17:35 Dose: 75 mls/hr Fentanyl 500 mcg/ Dextrose 100 mls @ 0.2 mls/hr IVPB TITR [facility]; Protocol Last Titration: 06/26/19 08:30 Dose: 0 mcg/hr, 0 mls/hr Levetiracetam (Keppra Injection -) 500 mg IVPB BID [facility] Last Admin: 06/25/19 21:35 Dose: 500 mg Lorazepam (Ativan Injection -) 2 mg IVPUSH Q12H PRN PRN Reason: MUSCLE SPASMS Mupirocin (Bactroban Ointment (For Decolonization) -) 1 applic NS BID [facility] Stop: 06/28/19 09:59 Last Admin: 06/25/19 21:35 Dose: 1 applic Pantoprazole Sodium (Protonix Iv) 40 mg IVPUSH DAILY [facility] Last Admin: 06/25/19 09:12 Dose: 40 mg ASSESSMENT AND PLAN: s/p Cardiopulmonary Arrest Acute CVA Acute COPD Exacerbation +Troponins likely Demand Ischemia Lactic Acidosis Elevated LFTs likely Ischemic injury Rhabdomyolysis - continue steroids - inhaled bronchodilators - empiric antiepileptics - IVF - hold sedation to assess mental status - not a candidate for weaning at this time - DVT/GI prophylaxis - continue ICU monitoring - prognosis guarded for meaningful recovery critical care time spent in reviewing chart, evaluating patient and formulating plan 35 min
[2019-06-26] MEDS: levETIRAcetam 500 MG/5 ML INJECTION VIAL IVPB SCH ×2 (09:57→21:36)
[2019-06-26] MEDS: PANTOPRAZOLE SODIUM 40 MG VIAL IVPUSH SCH (09:57)
[2019-06-26] MEDS: MUPIROCIN 2% TOPICAL OINTMENT FOR DECOLONIZATION NS SCH ×2 (09:58→21:37)
--- NOTE | 2019-06-26 11:26 | PN ---
Progress Note (short form) - Note Progress Note: NEUROSURGERY h/o asthma/COPD, HTN, HLD, bladder ca, diverticular disease was found apneic and pulseless by her grandson. Shortness of breath and wheezing at home. Lost consciousness just prior to being transported by her grandson to the ER. Full cardiopulmonary resuscitation begun when patient arrived in the ER. 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
[2019-06-26] MEDS: CHLORHEXIDINE GLUCONATE 4% CLEANSER FOR DECOLONIZATION TP SCH (21:36)
[2019-06-27] MEDS: DEXAMETHASONE SOD PHOSPHATE 10 MG/1 ML VIAL IVPUSH SCH ×2 (01:05→11:07)
[2019-06-27] MEDS: PROPOFOL 1,000,000 MCG/100 ML VIAL IVPB SCH (01:05)
[2019-06-27] MEDS: FENTANYL INJECTION 500 MCG in DEXTROSE 5%-WATER - 90 ML IVPB SCH (05:53)
[2019-06-27 07:38] LABS: BASO % 0.1 % (0-2.0); HEMATOCRIT 32.8 % (32.4-45.2); HEMOGLOBIN 11.2 GM/dL (10.7-15.3); LYMPH % 4.2 % (8-40); MCH 32.9 pg (25.7-33.7); MCHC 34.1 g/dl (32.0-36.0); MEAN CELL VOLUME 96.4 fl (80-96); MEAN PLT VOLUME 8.8 fl (7.5-11.1); MONO % 2.8 % (3.8-10.2); NEUT % 92.9 % (42.8-82.8); PLATELET COUNT 158 K/MM3 (134-434); RDW 13.7 % (11.6-15.6); WHITE BLOOD COUNT 7.4 K/mm3 (4.0-10.0)
--- NOTE | 2019-06-27 07:47 | PN ---
Progress Note, Physician Chief Complaint: PATIENT INTUBATED/VENT SUPPORT SEDATED PATIENT'S FAMILY NOW DECIDED FOR DNR - Current Medication List Current Medications: Active Medications Acetaminophen (Ofirmev Injection -) 750 mg IVPB Q6H PRN PRN Reason: FEVER Albuterol Sulfate (Ventolin 0.083% Nebulizer Soln -) 1 amp NEB RQID PRN PRN Reason: SHORT OF BREATH/WHEEZING Albuterol/Ipratropium (Duoneb -) 1 amp NEB RQID [facility] Last Admin: 06/26/19 21:40 Dose: 1 amp Chlorhexidine Gluconate (Hibiclens For Decolonization -) 1 applic TP HS [facility] Last Admin: 06/26/19 21:36 Dose: 1 applic Dexamethasone Sodium Phosphate (Decadron Injection -) 10 mg IVPUSH Q8H-IV [facility] Last Admin: 06/27/19 01:05 Dose: 10 mg Propofol (Diprivan -) 1,000,000 mcg in 100 mls @ 1.157 mls/hr IVPB TITR [facility]; Protocol Last Admin: 06/27/19 01:05 Dose: 10 mcg/kg/min, 2.313 mls/hr Lactated Ringer's (Lactated Ringers Solution) 1,000 ml in 1,000 mls @ 75 mls/ hr IV ASDIR [facility]ISSA Last Admin: 06/25/19 17:35 Dose: 75 mls/hr Fentanyl 500 mcg/ Dextrose 100 mls @ 0.2 mls/hr IVPB TITR [facility]; Protocol Last Admin: 06/27/19 05:53 Dose: 25 mcg/hr, 5 mls/hr Levetiracetam (Keppra Injection -) 500 mg IVPB BID [facility] Last Admin: 06/26/19 21:36 Dose: 500 mg Lorazepam (Ativan Injection -) 2 mg IVPUSH Q12H PRN PRN Reason: MUSCLE SPASMS Mupirocin (Bactroban Ointment (For Decolonization) -) 1 applic NS BID [facility] Stop: 06/28/19 09:59 Last Admin: 06/26/19 21:37 Dose: 1 applic Pantoprazole Sodium (Protonix Iv) 40 mg IVPUSH DAILY [facility] Last Admin: 06/26/19 09:57 Dose: 40 mg - Objective Vital Signs: Vital Signs Temperature 97.8 F 06/27/19 05:00 Pulse Rate 74 06/27/19 05:00 Respiratory Rate 14 06/27/19 06:55 Blood Pressure 124/86 06/27/19 05:00 O2 Sat by Pulse Oximetry (%) 100 06/26/19 19:25 Constitutional: Yes: Other Cardiovascular: Yes: Tachycardia Respiratory: Yes: Diminished, Mechanically Ventilated Gastrointestinal: Yes: Soft Genitourinary: Yes: [place] Present, Other Musculoskeletal: Yes: Muscle Weakness Neurological: Yes: Unresponsive Labs: CBC, BMP 06/27/19 06:40 INR, PTT INR 0.90 (0.83-1.09) 06/23/19 14:00 Problem List - Problems (1) Endotracheally intubated Code(s): Z97.8 - PRESENCE OF OTHER SPECIFIED DEVICES (2) Respiratory failure Code(s): J96.90 - RESPIRATORY FAILURE, UNSP, UNSP W HYPOXIA OR HYPERCAPNIA (3) Leukocytosis Code(s): D72.829 - ELEVATED WHITE BLOOD CELL COUNT, UNSPECIFIED (4) Cardiac arrest Code(s): I46.9 - CARDIAC ARREST, CAUSE UNSPECIFIED (5) Diverticulosis large intestine w/o perforation or abscess w/bleeding Code(s): K57.31 - DVRTCLOS OF LG INT W/O PERFORATION OR ABSCESS W BLEEDING (6) Lower GI bleed Code(s): K92.2 - GASTROINTESTINAL HEMORRHAGE, UNSPECIFIED (7) Transaminitis Code(s): R74.0 - NONSPEC ELEV OF LEVELS OF TRANSAMNS & LACTIC ACID DEHYDRGNSE (8) CVA (cerebral vascular accident) Code(s): I63.9 - CEREBRAL INFARCTION, UNSPECIFIED Assessment/Plan PATIENT STILL INTUBATED UNABLE TO WEAN OFF DUE TO NEUROLOGICAL DEFECIT FROM CVA. NOW DNR PER FAMILY WILL DISCUSS COMFORT VS HOSPICE MEASURES. CONTINUE CURRENT CARE PULMONARY SUPPORT BP SUPPORT ON IV PRESSORS/FLUIDS DVT PROPHYLAXIS STD'S
[2019-06-27 07:56] LABS: BLOOD UREA NITROGEN 36.3 mg/dL (7-18); CALCIUM 8.3 mg/dL (8.5-10.1); CREATININE 0.9 mg/dL (0.55-1.3); POTASSIUM 3.9 mmol/L (3.5-5.1)
[2019-06-27] MEDS: ALBUTEROL SO4 2.5/IPRATROPIUM 0.5 INH SOL 3 ML VIAL.NEB. NEB SCH ×2 (08:30→13:19)
[2019-06-27 09:01] LABS: MACROCYTOSIS 1+; PLATELET ESTIMATE DECREASED
--- NOTE | 2019-06-27 09:16 | PN ---
Physical Exam: SUBJECTIVE: Patient seen and examined on ICU morning rounds. No acute overnight events. Remains intubated and sedated on propofol 20 and fentanyl 5. Vent on V/A Control (14, 5 PEEP, 400, 30%FiO2). No pressors at this time. History limited 2/ 2 patient condition. Following rounds (11:00) family at bedside requests a transition to comfort care. They state that they have gathered everyone who can be present and would like to "take her off the vent." OBJECTIVE: Vital Signs Period Temp Pulse Resp BP Sys/Vila Pulse Ox Last 24 Hr 97.4 F-98.3 F 73-95 14-14 106-138/74-94 100-100 GENERAL: The patient is intubated, sedated, in no acute distress. HEAD: Normal morphologies, intubated. LUNGS: Vent sounds equal bilaterally, no wheezes, no crackles. HEART: Regular rate and rhythm, S1, S2 without murmur, rub or gallop. ABDOMEN: Soft, nontender, nondistended, no guarding, no rebound. EXTREMITIES: 2+ pulses, warm, no edema. NEUROLOGICAL: Limited 2/2 sedation and s/p stroke, unchanged from prior. SKIN: Warm, dry, normal turgor, no rashes or lesions noted. Laboratory Results - last 24 hr 06/27/19 06/27/19 06:40 06:40 WBC 7.4 RBC 3.40 L Hgb 11.2 Hct 32.8 MCV 96.4 H MCH 32.9 MCHC 34.1 RDW 13.7 Plt Count 158 MPV 8.8 Absolute Neuts (auto) 6.9 Neutrophils % 92.9 H Lymphocytes % 4.2 L D Monocytes % 2.8 L Eosinophils % 0.0 Basophils % 0.1 Nucleated RBC % 0 Sodium 143 Potassium 3.9 Chloride 116 H Carbon Dioxide 21 Anion Gap 6 L BUN 36.3 H Creatinine 0.9 Est GFR (CKD-EPI)AfAm 65.70 Est GFR (CKD-EPI)NonAf 56.69 Random Glucose 166 H Calcium 8.3 L Active Medications Generic Name Dose Route Start Last Admin Trade Name Freq PRN Reason Stop Dose Admin Acetaminophen 750 mg 06/25/19 01:00 Ofirmev Injection - IVPB Q6H PRN FEVER Albuterol Sulfate 1 amp 06/23/19 05:06 Ventolin 0.083% Nebulizer Soln - NEB RQID PRN SHORT OF BREATH/WHEEZING Albuterol/Ipratropium 1 amp 06/23/19 08:00 06/26/19 21:40 Duoneb - NEB 1 amp RQID MARISSA Administration Chlorhexidine Gluconate 1 applic 06/23/19 22:00 06/26/19 21:36 Hibiclens For Decolonization - TP 1 applic HS MARISSA Administration Dexamethasone Sodium Phosphate 10 mg 06/25/19 11:00 06/27/19 01:05 Decadron Injection - IVPUSH 10 mg Q8H-IV [facility]SA Administration Propofol 1,000,000 mcg in 100 mls @ 1.157 mls/hr 06/23/19 12:30 06/27/19 01: 05 Diprivan - IVPB 10 mcg/kg/min TITR [facility] 2.313 mls/hr Administration Protocol 5 MCG/KG/MIN Lactated Ringer's 1,000 ml in 1,000 mls @ 75 mls/hr 06/25/19 17:30 06/25/19 17:35 Lactated Ringers Solution IV 75 mls/hr ASDIR MARISSA Administration Fentanyl 500 mcg/ Dextrose 100 mls @ 0.2 mls/hr 06/26/19 04:00 06/27/19 05:53 IVPB 25 mcg/hr TITR [facility] 5 mls/hr Administration Protocol 1 MCG/HR Levetiracetam 500 mg 06/25/19 10:00 06/26/19 21:36 Keppra Injection - IVPB 500 mg BID [facility] Administration Lorazepam 2 mg 06/26/19 03:50 Ativan Injection - IVPUSH Q12H PRN MUSCLE SPASMS Mupirocin 1 applic 06/23/19 10:00 06/26/19 21:37 Bactroban Ointment (For Decolonization) - NS 06/28/19 09:59 1 applic BID [facility] Administration Pantoprazole Sodium 40 mg 06/23/19 21:15 06/26/19 09:57 Protonix Iv IVPUSH 40 mg DAILY [facility] Administration ASSESSMENT/PLAN: Ms. Mota is an 88 yo female w/ pmh of COPD, HLD, bladder CA, and diverticulitis who p/w labored breathing and LOC 06/23; found to be pulseless w / return of ROSC after 20 minutes of CPR. Patient intubated and sedated, found to have large L sided infarct on Head CT. As of 06/27/19 11:15AM, the family requests that the patient be taken off the vent and moved to comfort care only. Will discontinue all medications -4mg Morphine Bolus -100/100 Morphine GGT -Scopolamine Patch -Ativan 2mg q1h #Neuro - Intubated, sedated, on Fentanyl and propofol drip; will evaluate mental status w/ sedation vacation - Head CT: findings consistent with acute infarct involving the MCA and BOAZ territory. - NSX consulted, do not recommend more aggressive neurosurgical tx. - Neurology consulted, appreciate recs - On Decadron Q8hr #Cardio - Hypothermia protocol finished - Echo: Normal EF. Moderate to severe dilation of RV. #Pulm - Intubated and sedated for respiratory support - Hx of COPD, continue Duonebs, Albuterol PRN - Repeat ABG and adjust vent settings as appropriate - maintain O2 saturation >90% #GI - NPO while intubated, may consider tube feeds if intubation is prolonged - AST/ALT improved 112/71 recovering from acute injury #ID - WBC improved to 9.1; will continue to trend - Vanc x1, Zosyn x1 for empiric coverage - Blood, urine legionella, urine cx negative - Sputum culture with presumptive MSSA - Influenza negative #Prophylaxis - SCDs - Protonix #FEN - Monitor and replete lytes as needed - LR @75mls/hr #Disposition - Continue ICU monitoring - No plan for trach/PEG - Family will discuss further goals of care - DNR Visit type - Emergency Visit Emergency Visit: Yes ED Registration Date: 06/23/19 Care time: The patient presented to the Emergency Department on the above date and was hospitalized for further evaluation of their emergent condition. - New Patient This patient is new to me today: Yes Date on this admission: 06/27/19 - Critical Care Critical Care patient: Yes Total Critical Care Time (in minutes): 36 Critical Care Statement: The care of this patient involved high complexity decision making to prevent further life threatening deterioration of the patient 's condition and/or to evaluate & treat vital organ system(s) failure or risk of failure. ATTENDING PHYSICIAN STATEMENT I saw and evaluated the patient. I reviewed the resident's note and discussed the case with the resident. I agree with the resident's findings and plan as documented. SUBJECTIVE: OBJECTIVE: ASSESSMENT AND PLAN:
--- NOTE | 2019-06-27 09:32 | PN ---
Progress Note (short form) - Note Progress Note: NEUROSURGERY h/o asthma/COPD, HTN, HLD, bladder ca, diverticular disease was found apneic and pulseless by her grandson. Shortness of breath and wheezing at home. Lost consciousness just prior to being transported by her grandson to the ER. Full cardiopulmonary resuscitation begun when patient arrived in the ER. 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
[2019-06-27] MEDS: MUPIROCIN 2% TOPICAL OINTMENT FOR DECOLONIZATION NS SCH ×2 (10:00→22:12)
[2019-06-27] MEDS: levETIRAcetam 500 MG/5 ML INJECTION VIAL IVPB SCH (11:07)
--- NOTE | 2019-06-27 11:07 | PN ---
Teaching Attending Note Name of Resident: Jarred Garcia ATTENDING PHYSICIAN STATEMENT I saw and evaluated the patient. I reviewed the resident's note and discussed the case with the resident. I agree with the resident's findings and plan as documented. SUBJECTIVE: Pt seen and examined in the ICU. Remains intubated, sedated. Bites on ETT when sedation off. OBJECTIVE: Vital Signs Period Temp Pulse Resp BP Sys/Vila Pulse Ox Last 24 Hr 97.4 F-98.3 F 71-95 14-14 106-138/74-94 99-100 Intake & Output 06/24/19 06/25/19 06/26/19 06/27/19 23:59 23:59 23:59 23:59 Intake Total 2390 2610.6 1941.5 565 Output Total 650 800 700 500 Balance 1740 1810.6 1241.5 65 Weight 38.283 kg 38.102 kg 41.901 kg 43.148 kg Gen: intubated, sedated Heart: RRR Lung: scattered rhonchi Abd: soft, nontender Ext: + edema CBC, BMP 06/27/19 06:40 06/27/19 06:40 Active Medications Acetaminophen (Ofirmev Injection -) 750 mg IVPB Q6H PRN PRN Reason: FEVER Albuterol Sulfate (Ventolin 0.083% Nebulizer Soln -) 1 amp NEB RQID PRN PRN Reason: SHORT OF BREATH/WHEEZING Albuterol/Ipratropium (Duoneb -) 1 amp NEB RQID [facility] Last Admin: 06/27/19 08:30 Dose: 1 amp Chlorhexidine Gluconate (Hibiclens For Decolonization -) 1 applic TP HS [facility] Last Admin: 06/26/19 21:36 Dose: 1 applic Dexamethasone Sodium Phosphate (Decadron Injection -) 10 mg IVPUSH Q8H-IV [facility] Last Admin: 06/27/19 01:05 Dose: 10 mg Propofol (Diprivan -) 1,000,000 mcg in 100 mls @ 1.157 mls/hr IVPB TITR [facility]; Protocol Last Admin: 06/27/19 01:05 Dose: 10 mcg/kg/min, 2.313 mls/hr Lactated Ringer's (Lactated Ringers Solution) 1,000 ml in 1,000 mls @ 75 mls/ hr IV ASDIR [facility] Last Admin: 06/25/19 17:35 Dose: 75 mls/hr Fentanyl 500 mcg/ Dextrose 100 mls @ 0.2 mls/hr IVPB TITR [facility]; Protocol Last Admin: 06/27/19 05:53 Dose: 25 mcg/hr, 5 mls/hr Levetiracetam (Keppra Injection -) 500 mg IVPB BID [facility] Last Admin: 06/26/19 21:36 Dose: 500 mg Lorazepam (Ativan Injection -) 2 mg IVPUSH Q12H PRN PRN Reason: MUSCLE SPASMS Mupirocin (Bactroban Ointment (For Decolonization) -) 1 applic NS BID [facility] Stop: 06/28/19 09:59 Last Admin: 06/26/19 21:37 Dose: 1 applic Pantoprazole Sodium (Protonix Iv) 40 mg IVPUSH DAILY [facility] Last Admin: 06/26/19 09:57 Dose: 40 mg ASSESSMENT AND PLAN: s/p Cardiopulmonary Arrest Extensive Acute CVA Acute COPD Exacerbation +Troponins likely Demand Ischemia Lactic Acidosis Elevated LFTs likely Ischemic injury Rhabdomyolysis - continue steroids - inhaled bronchodilators - empiric antiepileptics - IVF - hold sedation to assess mental status - not a candidate for weaning at this time - DVT/GI prophylaxis - continue ICU monitoring - prognosis guarded for meaningful recovery, continue discussions regarding goals of care - pt now DNR, family leaning towards withdrawal of care/comfort care critical care time spent in reviewing chart, evaluating patient and formulating plan 35 min
[2019-06-27] MEDS ORDERED: MORPHINE SULFATE/0.9% NACL/PF 100 MG/100 ML BAG IVPB SCH (11:30)
[2019-06-27] MEDS ORDERED: SCOPOLAMINE HYDROBROMIDE 1 PATCH PATCH.TD72 TD SCH (11:30)
[2019-06-27] MEDS ORDERED: morphine SULFATE 4 MG/ML VIAL IVPUSH ONE (11:45)
[2019-06-27] MEDS: PANTOPRAZOLE SODIUM 40 MG VIAL IVPUSH SCH (12:28)
[2019-06-27] MEDS ORDERED: LORazepam 2 MG/ML SDV VIAL ONE (12:39)
--- NOTE | 2019-06-28 07:16 | PN ---
Physical Exam: SUBJECTIVE: Patient seen and examined. No longer on intubation, off sedation. Unresponsive to verbal, physical stimuli. Yesterday, decision was made by family to make patient comfort care. OBJECTIVE: Vital Signs Period Temp Pulse Resp BP Sys/Vila Pulse Ox Last 24 Hr 96.2 F-97.8 F 67-93 6-22 70-122/51-83 89-100 GENERAL: no longer intubated. off sedation. Unresponsive to physical/verbal stimuli. HEENT: NC/AT, upward eye gaze LUNGS: Rhonchorus breath sounds bilaterally. HEART: Regular rate and rhythm, S1, S2 without murmur, rub or gallop. ABDOMEN: Soft, nontender, nondistended, no guarding, no rebound. EXTREMITIES: 2+ pulses, warm, no edema. NEUROLOGICAL: No gag reflex, no pupillary reflex SKIN: Warm, dry, normal turgor, no rashes or lesions noted. Laboratory Results - last 24 hr 06/27/19 06/27/19 06:40 06:40 WBC 7.4 RBC 3.40 L Hgb 11.2 Hct 32.8 MCV 96.4 H MCH 32.9 MCHC 34.1 RDW 13.7 Plt Count 158 MPV 8.8 Absolute Neuts (auto) 6.9 Neutrophils % 92.9 H Neutrophils % (Manual) 97.0 H Band Neutrophils % 0.0 Lymphocytes % 4.2 L D Lymphocytes % (Manual) 1.0 L D Monocytes % 2.8 L Monocytes % (Manual) 2 L D Eosinophils % 0.0 Eosinophils % (Manual) 0.0 Basophils % 0.1 Basophils % (Manual) 0.0 Myelocytes % (Man) 0 Promyelocytes % (Man) 0 Blast Cells % (Manual) 0 Nucleated RBC % 0 Metamyelocytes 0 Platelet Estimate Decreased Macrocytosis 1+ Sodium 143 Potassium 3.9 Chloride 116 H Carbon Dioxide 21 Anion Gap 6 L BUN 36.3 H Creatinine 0.9 Est GFR (CKD-EPI)AfAm 65.70 Est GFR (CKD-EPI)NonAf 56.69 Random Glucose 166 H Calcium 8.3 L Active Medications Generic Name Dose Route Start Last Admin Trade Name Freq PRN Reason Stop Dose Admin Morphine Sulfate 100 mg in 100 mls @ 1 mls/hr 06/27/19 11:30 06/27/19 12:45 Morphine 100mg/100ml-0.9% Nacl IVPB 06/28/19 11:29 4 mg/hr TITR MARISSA 4 mls/hr Infusion 1 MG/HR Lorazepam 2 mg 06/27/19 12:21 06/27/19 12:40 Ativan Injection - IVPUSH 06/28/19 11:29 2 mg Q1H PRN Administration AGITATION Mupirocin 1 applic 06/23/19 10:00 06/27/19 22:12 Bactroban Ointment (For Decolonization) - NS 06/28/19 09:59 1 applic BID MARISSA Administration Scopolamine HBr 1 patch 06/27/19 11:30 06/27/19 17:18 Transderm-Scop - TD 1 patch Q72H MARISSA Administration ASSESSMENT/PLAN: 88 y/o/f with PMHx of COPD, HLD, bladder CA, and diverticulitis who p/w labored breathing and LOC 06/23; found to be pulseless w/ return of ROSC after 20 minutes of CPR. Patient intubated and sedated, found to have large L sided infarct on Head CT. #Neuro - Decision made by family to make patient comfort care - 4mg Morphine Bolus - 100/100 Morphine GGT - Scopolamine Patch - Head CT: findings consistent with acute infarct involving the MCA and BOAZ territory. - NSX consulted, do not recommend more aggressive neurosurgical tx. - Neurology recs appreciated. #Cardio - Hypothermia protocol finished - Echo: Normal EF. Moderate to severe dilation of RV. #Pulm - Extubated 06/27 - Hx of COPD #GI - No active issues #ID - Holding abx as patient is comfort care - Blood, urine legionella, urine cx negative - Sputum culture with Staph Aureus - Influenza negative #Prophylaxis - SCDs #FEN - Comfort care #Disposition - Patient is comfort care - Transfer to med surg Visit type - Emergency Visit Emergency Visit: Yes ED Registration Date: 06/23/19 Care time: The patient presented to the Emergency Department on the above date and was hospitalized for further evaluation of their emergent condition. - New Patient This patient is new to me today: No - Critical Care Critical Care patient: Yes Total Critical Care Time (in minutes): 36 Critical Care Statement: The care of this patient involved high complexity decision making to prevent further life threatening deterioration of the patient 's condition and/or to evaluate & treat vital organ system(s) failure or risk of failure. ATTENDING PHYSICIAN STATEMENT I saw and evaluated the patient. I reviewed the resident's note and discussed the case with the resident. I agree with the resident's findings and plan as documented. SUBJECTIVE: OBJECTIVE: ASSESSMENT AND PLAN:
--- NOTE | 2019-06-28 08:46 | PN ---
Progress Note, Physician Chief Complaint: COMPASSIONATE WEANING DONE PATIENT HOLDING HE ROWN BP/VS NO PHYSICAL RESPONSE NOT FOLLOWING COMMANDS - Current Medication List Current Medications: Active Medications Morphine Sulfate (Morphine 100mg/100ml-0.9% Nacl) 100 mg in 100 mls @ 1 mls/hr IVPB TITR MARISSA Stop: 06/28/19 11:29 Last Infusion: 06/27/19 12:45 Dose: 4 mg/hr, 4 mls/hr Lorazepam (Ativan Injection -) 2 mg IVPUSH Q1H PRN PRN Reason: AGITATION Stop: 06/28/19 11:29 Last Admin: 06/27/19 12:40 Dose: 2 mg Mupirocin (Bactroban Ointment (For Decolonization) -) 1 applic NS BID MARISSA Stop: 06/28/19 09:59 Last Admin: 06/27/19 22:12 Dose: 1 applic Scopolamine HBr (Transderm-Scop -) 1 patch TD Q72H [facility] Last Admin: 06/27/19 17:18 Dose: 1 patch - Objective Vital Signs: Vital Signs Temperature 96.2 F L 06/28/19 02:00 Pulse Rate 84 06/28/19 02:00 Respiratory Rate 6 L 06/28/19 02:00 Blood Pressure 70/51 L 06/28/19 02:00 O2 Sat by Pulse Oximetry (%) 89 L 06/27/19 21:00 Constitutional: Yes: Other Cardiovascular: Yes: Regular Rate and Rhythm Respiratory: Yes: On Nasal O2 Gastrointestinal: Yes: Soft Genitourinary: Yes: Incontinence Labs: CBC, BMP 06/27/19 06:40 06/27/19 06:40 INR, PTT INR 0.90 (0.83-1.09) 06/23/19 14:00 Problem List - Problems (1) Endotracheally intubated Code(s): Z97.8 - PRESENCE OF OTHER SPECIFIED DEVICES (2) Respiratory failure Code(s): J96.90 - RESPIRATORY FAILURE, UNSP, UNSP W HYPOXIA OR HYPERCAPNIA (3) Leukocytosis Code(s): D72.829 - ELEVATED WHITE BLOOD CELL COUNT, UNSPECIFIED (4) Cardiac arrest Code(s): I46.9 - CARDIAC ARREST, CAUSE UNSPECIFIED (5) Diverticulosis large intestine w/o perforation or abscess w/bleeding Code(s): K57.31 - DVRTCLOS OF LG INT W/O PERFORATION OR ABSCESS W BLEEDING (6) Lower GI bleed Code(s): K92.2 - GASTROINTESTINAL HEMORRHAGE, UNSPECIFIED (7) Transaminitis Code(s): R74.0 - NONSPEC ELEV OF LEVELS OF TRANSAMNS & LACTIC ACID DEHYDRGNSE (8) CVA (cerebral vascular accident) Code(s): I63.9 - CEREBRAL INFARCTION, UNSPECIFIED Assessment/Plan COMFORT CARE MORPHINE IV TO COMFORT SCOPALAMINE PATCH FAMILY BEDSIDE SEEN IN ICU
--- NOTE | 2019-06-28 12:32 | PN ---
Teaching Attending Note Name of Resident: Kevon Ferrer ATTENDING PHYSICIAN STATEMENT I saw and evaluated the patient. I reviewed the resident's note and discussed the case with the resident. I agree with the resident's findings and plan as documented. SUBJECTIVE: Pt seen and examined in the ICU. Extubated on morphine gtt. Family at bedside, states pt is comfortable. OBJECTIVE: Vital Signs Period Temp Pulse Resp BP Sys/Vila Pulse Ox Last 24 Hr 96.2 F-96.8 F 76-93 6-22 70-107/51-76 89-100 Intake & Output 06/25/19 06/26/19 06/27/19 06/28/19 23:59 23:59 23:59 23:59 Intake Total 2610.6 1941.5 925 28 Output Total 994 866 6283 400 Balance 1810.6 1241.5 -275 -372 Weight 38.102 kg 41.901 kg 43.148 kg Gen: mildly tachypneic Heart: RRR Lung: scattered rhonchi Abd: soft, nontender Ext: + edema CBC, BMP 06/27/19 06:40 06/27/19 06:40 Active Medications Scopolamine HBr (Transderm-Scop -) 1 patch TD Q72H MARISSA Last Admin: 06/27/19 17:18 Dose: 1 patch ASSESSMENT AND PLAN: s/p Cardiopulmonary Arrest Extensive Acute CVA Acute COPD Exacerbation +Troponins likely Demand Ischemia Lactic Acidosis Elevated LFTs likely Ischemic injury Rhabdomyolysis - titrate morphine to comfort, RR <20 - ativan as needed - scopolamine patch for secretions - discussed with family and answered all questions - can monitor on floor
--- NOTE | 2019-06-28 12:52 | PN ---
Progress Note (short form) - Note Progress Note: NEUROSURGERY Extubated Family at bedside Comfortably appearing Extensive ischemic stroke of L MCA and BOAZ distribution Given patient age and extent of ischemic stroke as well as need for full resuscitation prognosis is very poor Do not recommend more aggressive neurosurgical tx Keppra for sz prophylaxis Comfort care only Will sign off
[2019-06-28] MEDS ORDERED: MORPHINE SULFATE/0.9% NACL/PF 100 MG/100 ML BAG IVPB SCH (14:15)
[2019-06-28] MEDS ORDERED: VANCOMYCIN 1 GM in D5W (PRE-DOCKED) 1,000 MG/250 ML IVPB ONE (17:50)
[2019-06-28] MEDS ORDERED: SODIUM CHLORIDE 1,000 ML IV SCH (18:15)
[2019-06-28] MEDS: methylPREDNISolone NA SUCC 40 MG/1 ML VIAL IVPUSH SCH (20:41)
--- NOTE | 2019-06-29 08:24 | PN ---
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
--- NOTE | 2019-06-29 08:48 | PN ---
Progress Note, Physician - Current Medication List Current Medications: Active Medications Morphine Sulfate (Morphine 100mg/100ml-0.9% Nacl) 100 mg in 100 mls @ 4 mls/hr IVPB TITR MARISSA; Protocol Last Admin: 06/28/19 14:00 Dose: 4 mg/hr, 4 mls/hr Sodium Chloride (Normal Saline -) 1,000 mls @ 42 mls/hr IV ASDIR MARISSA Last Admin: 06/28/19 18:29 Dose: 42 mls/hr Scopolamine HBr (Transderm-Scop -) 1 patch TD Q72H MARISSA - Objective Vital Signs: Vital Signs Temperature 96.9 F L 06/29/19 08:24 Pulse Rate 103 H 06/29/19 08:24 Respiratory Rate 8 L 06/29/19 08:24 Blood Pressure 67/37 L 06/29/19 08:24 O2 Sat by Pulse Oximetry (%) 89 L 06/29/19 08:25 Cardiovascular: Yes: S1, S2 Respiratory: Yes: Regular, CTA Bilaterally Neurological: Yes: Unresponsive Labs: CBC, BMP 06/27/19 06:40 06/27/19 06:40 INR, PTT INR 0.90 (0.83-1.09) 06/23/19 14:00 Assessment/Plan - Problems (1) Cardiac arrest (2) Respiratory failure (3) Transaminitis (4) CVA CT head shows left middle cerebral and anterior cerebral artery distribution with a shift COMFORT CARE MORPHINE IV TO COMFORT SCOPALAMINE PATCH
[2019-06-30 06:56] VITALS: BP 63/37; PULSE 69; TEMP 97.4
[2019-06-30] MEDS ORDERED: SCOPOLAMINE HYDROBROMIDE 1 PATCH PATCH.TD72 TD SCH (11:30)
--- NOTE | 2019-06-30 11:30 | DS ---
Physical Examination Vital Signs: Vital Signs Temperature 97.4 F L 06/30/19 06:00 Pulse Rate 69 06/30/19 06:00 Respiratory Rate 10 06/30/19 06:00 Blood Pressure 63/37 L 06/30/19 06:00 O2 Sat by Pulse Oximetry (%) 87 L 06/29/19 21:00 Findings/Remarks: Called by RN to assess patient. Patient was found unresponsive by RN. On assessment no palpable carotid pulse, no rhythm auscultated, and no air entry auscultated as well. Patient pronounced at 11:00am. Labs: CBC, BMP 06/27/19 06:40 06/27/19 06:40 Discharge Summary Reason For Visit: CARDIAC ARREST Current Active Problems CVA (cerebral vascular accident) (Acute) Cardiac arrest (Acute) Endotracheally intubated (Acute) Leukocytosis (Acute) Respiratory failure (Acute) Transaminitis (Acute) Hospital Course: 88-year-old woman with a history of asthma/COPD, HTN, HLD, distant bladder ca s/ p BCG washout and partial HYS, diverticular disease was carried into the ER Apneic and pulseless by her grandson: She had severe shortness of breath and wheezing at home this evening. Patient lost consciousness just prior to being transported by her grandson to the ER (approximately 10 minutes away). Full cardiopulmonary resuscitation begun when patient arrived in the ER. According to the grandson, patient had exacerbation of her COPD for the last several days (cough, recurrent wheezing). She had apparently run out of some of her medications. She was seen by her PMD (Dr. Lee) yesterday and restarted on all her medications. Condition: - Instructions Referrals: Gopi Lee MD [Primary Care Provider] - Disposition: - Home Medications Comprehensive Discharge Medication List: Ambulatory Orders Albuterol Sulfate Inhaler - [Ventolin HFA Inhaler -] 1 - 2 inh PO Q4H PRN Budesonide/Formeterol Fumarate [SYMBICORT 80/4.5mcg -] 1 inh PO BID PRN Rosuvastatin Calcium [Crestor] 0 mg PO DAILY 07/22/18 Amlodipine Besylate [Norvasc -] 5 mg PO DAILY 09/22/18
== END 2019-06-30 07:50 | disposition expired | DRG 207 ==
LOC: FER 00:05 → JICU 04:15 → J4S 06-28 17:41
PROVIDERS: ADMIT Internal Medicine; ATTEND Family Medicine
PROC: 5A1955Z Respiratory Ventilation, Greater than 96 Consecutive Hours (ICD-10-PCS; principal; 2019-06-23)
PROC: 0BH17EZ Insertion of Endotracheal Airway into Trachea, Via Natural or Artificial Opening (ICD-10-PCS; 2019-06-23)
PROC: 5A12012 Performance of Cardiac Output, Single, Manual (ICD-10-PCS; 2019-06-23)
DX: J96.01 Acute respiratory failure with hypoxia (principal); I63.9 Cerebral infarction, unspecified; E87.2 Acidosis; I24.8 Other forms of acute ischemic heart disease; G93.1 Anoxic brain damage, not elsewhere classified; M62.82 Rhabdomyolysis; J44.1 Chronic obstructive pulmonary disease with (acute) exacerbation; I46.9 Cardiac arrest, cause unspecified; T68.XXXA Hypothermia, initial encounter; D72.829 Elevated white blood cell count, unspecified; R74.0 Nonspecific elevation of levels of transaminase and lactic acid dehydrogenase [LDH]; E78.5 Hyperlipidemia, unspecified; I10 Essential (primary) hypertension; I95.9 Hypotension, unspecified
CPT/HCPCS: 36415; 36600; 70450-TC; 71045-TC-FY; 71275-TC; 80048; 80053; 81003; 82375; 82550; 82553; 82803; 83036; 83050; 83605; 83690; 83735; 84100; 84443; 84484; 85025; 85027; 85610; 85730; 86850; 86900; 86901; 87040; 87070; 87086; 87186; 87205; 87254; 87804; 87899; 93005; 93010; 93306-TC; 94002; 94640; 95816; 99285-25; J0131; J1100; J7030